=== PATIENT | female | born 1995 | race Two or more races ===

== ENCOUNTER → 2021-08-10 14:18 | Outpatient (BNVA) | payer OTHER, SELFPAY | PROVIDERS: PCP Internal Medicine; Referring Provider Internal Medicine; Visit Provider Internal Medicine | DX: I49.8 Other specified cardiac arrhythmias (principal) | CPT/HCPCS: 93005 ==

== ENCOUNTER → 2021-09-16 12:56 | Outpatient (REF) | payer OTHER, SELFPAY ==
--- NOTE | 2021-09-16 13:02 | CA_ITS ---
Transthoracic Echocardiogram Patient (Last, First, Middle): Deanne Reid L Gender: Female Date of : 1995 Age: 26 Procedure Date: 09/16/2021 Procedure Type: Transthoracic Echocardiogram Location: OP Height: 152.4 cm Weight: 55.79 kg BSA: 1.52 m2 Heart Rate: bpm BP: 80 / 70 mmHg Drop Shipment Clerk: [email or web address]/[email or web address] Referring MD: Cristopher Allen MD Symptoms: I49.8 - Other specified cardiac arrhythmias Study Quality: Good ECG Rhythm: Sinus Conclusions: - The left ventricular systolic function is normal. The visually estimated ejection fraction is between 60-65%. - No obvious valvular pathology seen on this study. Findings Left Ventricle Normal left ventricular cavity size. There is normal left ventricular wall thickness. The left ventricular systolic function is normal. The visually estimated ejection fraction is between 60-65%. There is no evidence of regional wall motion abnormalities. Diastolic function is normal for age. Right Ventricle Normal right ventricular cavity size and systolic function. Atria Both atria are normal in size. Aortic Valve There is a normal trileaflet aortic valve. There is no aortic valve stenosis. There is no aortic valve regurgitation. Mitral Valve The mitral valve appears normal. There is trace mitral valve regurgitation. There is no mitral valve stenosis. Pulmonic Valve The pulmonic valve was not well visualized. Tricuspid Valve Normal tricuspid valve structure. There is trace tricuspid valve regurgitation. The pulmonary artery systolic pressure is normal. Great Vessels The aortic annulus, sinuses of valsalva, and asc aorta are normal in size. Venous The inferior vena cava is normal in size and collapses greater than 50% with inspiration. Pericardium/Pleural There is no evidence of pericardial effusion. Prior Study Comparison No prior study available for comparison. Recommendations, Care & Conclusions No obvious valvular pathology seen on this study. Measurements 2D Linear Measurements IVSd: 0.87 0.6-0.9/0.6-1.0 cm LVIDd: 4.18 3.9-5.3/4.2-5.9 cm LVIDd Index: 2.75 2.4-3.2/2.2-3.1 cm/m2 LVIDs: 2.62 2.0-3.6 cm LVPWd: 0.75 0.7-1.1 cm Ao Root: 3.10 2.1-3.5 cm LA Diam: 2.70 2.7-3.8/3.0-4.0 cm LAIDs Index: 1.78 1.5-2.3 cm/m2 LV Mass: 127.28 67-162/88-224 g LV Mass Index: 83.73 43-95/49-115 g/m2 LVOT Diam: 2.00 3.0+(-)1.3 cm Mitral Valve MV Pk E: 0.97 MV PK A: 0.49 MV Decel Time: 212.00 E/A: 2.00 E'Lateral: 14.40 E'Medial: 10.70 E/E' Med: 9.00 E/E' Lat: 6.70 PHT: 62.00 MVA PHT: 3.55 Decel Coffee: 4.56 Aortic Valve AoV Pk Adria: 1.33 AoV Mn Adria: 1.00 AoV VTI: 0.27 AoV Pk Grad: 7.00 Aov Mn Grad: 4.00 MATTHEW Cont.VTI: 2.56 LVOT LVOT Pk Adria: 1.13 LVOT Mn Adria: 0.79 LVOT VTI: 0.22 LVOT Pk Grad: 5.00 LVOT Mn Grad: 3.00 LVOT Diam: 2.00 LVOT Area: 3.14 Diastolic Function MV Pk E: 0.97 MV Pk A: 0.49 E/A: 2.00 E'Medial: 10.70 E/E' Med: 9.00 E' Laterial: 14.40 E/E' Lat: 6.70 Tricuspid Valve TR Pk Adria: 1.24 TR Pk Grad: 6.00 RA Press: 3.00 Great Vessels Aorta Ao Root-2D: 3.10 2.0-3.7 cm Ao Asc: 2.40 2.1-3.4 cm Ao Arch: 2.20 Updated in Other Vendor System with Status of Final Cristopher Allen MD electronically signed on 09/17/2021 12:37:58 PM with status of Final
== END ==
LOC: HO.CARD 12:56
PROVIDERS: PCP Internal Medicine; Visit Provider Internal Medicine
DX: I49.8 Other specified cardiac arrhythmias (principal)
CPT/HCPCS: 93306

== ENCOUNTER → 2021-10-19 15:12 | Outpatient (BNVA) | payer OTHER, SELFPAY | PROVIDERS: PCP Internal Medicine; Referring Provider Internal Medicine; Visit Provider Internal Medicine ==

== ENCOUNTER 2022-01-15 09:20 | Emergency (ER) | payer OTHER, SELFPAY ==
--- NOTE | ~2022-01-15 | CT_ITS ---
EXAMINATION: CT abdomen pelvis wo con CLINICAL INFORMATION: Reason for Exam abd pain and vomiting COMPARISON: No prior CT available for comparison. TECHNIQUE: Multidetector volumetric imaging was performed from the superior aspect of the liver through the pubic symphysis a noncontrasted study. Sagittal and coronal reformatted images were obtained on the technologist's workstation. This CT examination was performed using dose optimization techniques as appropriate, variously including the following: *Automated exposure control *Adjustment of mA and/or kV according to patient size (this includes techniques or standardized protocols for targeted exams where dose is matched to indication/reason for exam; i.e. extremities or head) *Use of iterative reconstruction technique DLP: 396 mGy-cm FINDINGS: LOWER THORAX: Included lung bases are clear. HEPATOBILIARY: No focal hepatic lesions. No biliary ductal dilatation. GALLBLADDER: Gallbladder unremarkable. SPLEEN: Spleen is normal in size. PANCREAS: No focal mass or ductal dilatation. STOMACH AND GASTROINTESTINAL TRACT: Stomach is grossly unremarkable. There is no bowel distention or thickening. Appendix not visualized might have been obscured by crowding of bowel loops and paucity of intraperitoneal fat, no CT evidence of inflamed structure around the cecum to suggest appendicitis. ADRENALS: No adrenal nodules. KIDNEYS/URETERS: No hydronephrosis, stones or solid mass lesions. URINARY BLADDER: Partially decompressed. PELVIC VISCERA: There is IUD in uterus otherwise Unremarkable PERITONEUM: No free air or fluid. LYMPH NODES: No lymphadenopathy. VASCULAR:Abdominal aorta normal in size, no aneurysm found. BONES, ABDOMINAL WALL AND SOFT TISSUES: Age-appropriate changes of the spine and skeletal system, no destructive osteolytic or osteosclerotic bone lesion found CT/CT abdomen pelvis wo con IMPRESSION: *No CT evidence of acute intra-abdominal or pelvic process to explain patient's pain symptoms, exam is limited by lack of oral and IV contrast and paucity of intraperitoneal fat. *No bowel obstruction, no kidney stone or hydronephrosis, no free air or fluid, no evidence of appendicitis. *IUD in the uterus.
[2022-01-15 09:35] VITALS: BP 106/77; PULSE 110; RESP 16; TEMP 36.9; O2SAT 100; BMI 25.0
--- NOTE | 2022-01-15 10:01 | ED.NAVMDI ---
HPI - Nausea/Vomiting/Diarrhea General Chief complaint: Nausea/Vomiting/Diarrhea Stated complaint: Vomiting Time Seen by Provider: 01/15/22 09:58 Source: patient and family Mode of arrival: ambulatory Limitations: no limitations History of Present Illness HPI Narrative: 26 years old female came in for evaluation of nausea, vomiting, and diarrhea. Patient's symptoms started since this morning, patient ate homemade fish with her father father did feel mildly sick but the patient started to feel more sicker having nausea and vomiting and 2 times of nonbloody loose stool diarrhea at home, no fever or chills. No recent travel, no recent use of antibiotic. been having abdominal cramps. No abdominal surgeries. Past medical history is significant for endometriosis. Related Data Home Medications Medication Instructions Recorded Confirmed fremanezumab-vfrm 225 mg/1.5 mL mg SUBCUT .once a month ml 10/19/21 10/19/21 subcutaneous syringe (Ajovy Syringe) ubrogepant 100 mg tablet (Ubrelvy) 100 mg PO ONCE PRN tab 10/19/21 10/19/21 Previous Rx's Medication Instructions Recorded ivabradine 5 mg tablet (Corlanor) 5 mg PO BID #60 tab 08/23/21 mirtazapine 15 mg tablet 15 mg PO BEDTIME #30 tab 11/23/21 somtgpujia-ckrvkuwcfipyf-dcrrhuft 1 tab PO Q4H PRN 30 Days #20 tab 11/29/21 50 mg-325 mg-40 mg tablet metoclopramide HCl 10 mg tablet 10 mg PO Q6H PRN #7 tab 01/15/22 (Reglan) Allergies Allergy/AdvReac Type Severity Reaction Status Date / Time Sulfa (Sulfonamide Allergy Unknown UNKNOWN Verified 10/19/21 15:15 Antibiotics) [SULFA (SULFONAMIDE ANTIBIOTICS)] Review of Systems Review of Systems: All other systems are reviewed and are negative Constitutional: Reports as per HPI and Reports no additional constitutional complaints Eyes: Reports as per HPI and Reports no additional eye complaints Reports system reviewed and no additional complaints, except as documented Cardiovascular: Reports as per HPI and Reports no additional cardiovascular complaints Respiratory: Reports as per HPI and Reports no additional respiratory complaints Gastrointestinal: Reports as per HPI and Reports no additional gastrointestinal complaints Genitourinary: Reports no additional female genitourinary complaints Musculoskeletal: Reports no additional musculoskeletal complaints Skin/Breast: Reports system reviewed and no additional complaints, except as docu Psychiatric: Reports no additional psychiatric complaints Endocrine: Reports no additional endocrine complaints Hematologic/Lymphatic: Reports no additional hematologic/lymphatic complaints Allergic/Immunologic: Reports no additional allergic/immunologic complaints Reports system reviewed and no additional complaints, except as documented and Reports Abnormal speech present [facility] Past Medical History Medical History Migraine POTS (postural orthostatic tachycardia syndrome) Surgical History History of wisdom tooth extraction Family History Family History Father Unknown family medical history Mother HTN (hypertension) Social History Social History Alcohol intake: never Patient Tobacco Use Status: Never used Tobacco Advance Directives: No Advance Directives Information Provided: Yes Physical Exam Vital Signs: Vital Signs: Last Vital Signs Temp 98.6 F 01/15/22 13:39 Pulse 76 01/15/22 13:39 Resp 18 01/15/22 13:39 BP 94/60 01/15/22 13:39 Pulse Ox 97 01/15/22 13:39 BMI result Body Mass Index 25.0 Vital signs have been reviewed as appeared to be correct. Blood pressure normal. Heart rate elevated.. Respiration rate normal. Temperature normal. Oxygen saturation normal. Appearance: Alert. Oriented X3. No acute distress. Head: Normal external exam. Normocephalic. Atraumatic. No [place] signs noted. No raccoon eyes noted Eyes: PERRLA. EOMI. Conjunctiva and sclera normal. Eyelids normal. ENT: TM's Normal. Pharynx normal. Uvula midline. Moist mucous membranes. No trismus noted. No drooling noted. No muffled voice noted. Neck: Normal inspection. Neck supple. FROM. No adenopathy. Thyroid Normal. No meningeal signs. No neck mass noted. CVS: Normal heart rate and rhythm. Heart sound normal. No murmurs noted. Pulses normal throughout. Respiratory: No respiratory distress. Painless inspiration. Breath sounds normal. No wheezes/rales/rhonchi noted. Chest nontender. No accessory muscle usage noted or decreased air movement noted. Abdomen: Soft and nontender. Bowel sounds normal in all 4 quadrants. No distention noted. No organomegaly noted. No visible injury noted. Back: No CVA tenderness. Full range of motion noted. Skin: Skin warm and dry. Normal skin color. Normal skin turgor. No rashes/lesions/lacerations noted. Extremities: No lower extremity edema. Extremities exhibit normal range of motion. Extremities nontender. Neuro: Oriented X 3. Cranial nerve exam: II-XII are grossly intact No motor deficit. No sensory deficit. Reflexes normal. Course Course Course Narrative: Assessment and plan. 26-year-old female came in with nausea, vomiting, diarrhea after eating fish, father had similar symptoms but milder, patient received IV fluid and IV medication in the emergency department, patient now is improving able to tolerate p.o. intake. Will discharge home with antinausea medication, instruction to drink fluids and clear diet and gradually advance as tolerated. MDM - Nausea/Vomiting/Diarrhea Lab Data Attestation: I reviewed the patient's lab results. Result diagrams: 01/15/22 10:20 01/15/22 10:20 Labs: Lab Results 01/15/22 01/15/22 01/15/22 Range/Units 10:09 10:09 10:20 WBC 4.1 L (4.8-10.8) X10*3/uL RBC 4.46 (4.20-5.50) X10*6/uL Hgb 13.0 (12.0-16.0) g/dl Hct 39.9 (37.0-47.0) % MCV 89.5 (80.0-98.0) fL MCH 29.1 (27.0-33.0) pg MCHC 32.6 (31.0-35.0) g/dl RDW 12.0 (11.0-16.0) % Plt Count 204 (160-400) X10*3/uL MPV 10.8 (9.4-12.3) fL Immature Gran % (Auto) 0.5 H (0.0-0.4) % Neut % (Auto) 75.1 H (45-73) % Lymph % (Auto) 14.3 L (20-40) % [place] % (Auto) 9.9 (2-11) % Eos % (Auto) 0.0 (0-4) % Baso % (Auto) 0.2 (0-2) % Lymph # (Auto) 0.6 L (1.2-4.9) X10*3/uL [place] # (Auto) 0.4 (0.1-1.2) X10*3/uL Eos # (Auto) 0.0 (0.0-0.4) X10*3/uL Baso # (Auto) 0.0 (0.0-0.2) X10*3/uL Abs Immat Gran (auto) 0.02 (0.00-0.03) X10*3/uL Absolute Neuts (auto) 3.1 (2.0-8.3) x10*3/uL Absolute Nucleated RBC 0.000 (0.0-0.012) X10*3/uL Nucleated RBC % (auto) 0.0 (0.0-0.2) /100WBC Sodium (135-145) mmol/L Potassium (3.3-5.1) mmol/L Chloride (96-108) mmol/L Carbon Dioxide (22-29) mmol/L Anion Gap (12-20) BUN (9-16) mg/dL Creatinine (0.5-1.4) mg/dL Estim Creat Clear Calc Estimated GFR Random Glucose (60-115) mg/dL Calcium (8.4-10.2) mg/dL Total Bilirubin (0.0-1.0) mg/dL Direct Bilirubin (0.0-0.5) mg/dL AST (5-31) U/L ALT (0-31) U/L Alkaline Phosphatase (39-117) U/L Total Protein (6.5-8.0) g/dL Albumin (3.5-5.0) g/dL Lipase (8-78) U/L Urine Color YELLOW Urine Appearance CLOUDY Urine pH 6.0 (5.0-8.0) Ur Specific [place] >= 1.030 H (1.005-1.025) Urine Protein 1+ H (NEG-TRACE) MG/DL Urine Glucose (UA) NEG (NEG) MG/DL Urine Ketones 5 (NEG) MG/DL Urine Blood 1+ H (NEG) Urine Nitrite NEG (NEG) Ur Leukocyte Esterase NEG (NEG) Urine RBC 5-9 H (0) /HPF Urine WBC 5-9 H (0-4) /HPF Ur Squamous Epith Cells 3+ /LPF Amorphous Sediment 3+ /LPF Urine Bacteria 1+ /LPF Urine Mucus 2+ /LPF Urine Test NEGATIVE (NEGATIVE) 01/15/22 Range/Units 10:20 WBC (4.8-10.8) X10*3/uL RBC (4.20-5.50) X10*6/uL Hgb (12.0-16.0) g/dl Hct (37.0-47.0) % MCV (80.0-98.0) fL MCH (27.0-33.0) pg MCHC (31.0-35.0) g/dl RDW (11.0-16.0) % Plt Count (160-400) X10*3/uL MPV (9.4-12.3) fL Immature Gran % (Auto) (0.0-0.4) % Neut % (Auto) (45-73) % Lymph % (Auto) (20-40) % [place] % (Auto) (2-11) % Eos % (Auto) (0-4) % Baso % (Auto) (0-2) % Lymph # (Auto) (1.2-4.9) X10*3/uL [place] # (Auto) (0.1-1.2) X10*3/uL Eos # (Auto) (0.0-0.4) X10*3/uL Baso # (Auto) (0.0-0.2) X10*3/uL Abs Immat Gran (auto) (0.00-0.03) X10*3/uL Absolute Neuts (auto) (2.0-8.3) x10*3/uL Absolute Nucleated RBC (0.0-0.012) X10*3/uL Nucleated RBC % (auto) (0.0-0.2) /100WBC Sodium 138 (135-145) mmol/L Potassium 4.4 (3.3-5.1) mmol/L Chloride 104 (96-108) mmol/L Carbon Dioxide 27 (22-29) mmol/L Anion Gap 11 L (12-20) BUN 22 H (9-16) mg/dL Creatinine 0.91 (0.5-1.4) mg/dL Estim Creat Clear Calc 73.4 Estimated GFR > 60 Random Glucose 99 (60-115) mg/dL Calcium 9.6 (8.4-10.2) mg/dL Total Bilirubin 0.3 (0.0-1.0) mg/dL Direct Bilirubin 0.2 (0.0-0.5) mg/dL AST 31 (5-31) U/L ALT 22 (0-31) U/L Alkaline Phosphatase 49 (39-117) U/L Total Protein 7.5 (6.5-8.0) g/dL Albumin 4.2 (3.5-5.0) g/dL Lipase 8 (8-78) U/L Urine Color Urine Appearance Urine pH (5.0-8.0) Ur Specific [place] (1.005-1.025) Urine Protein (NEG-TRACE) MG/DL Urine Glucose (UA) (NEG) MG/DL Urine Ketones (NEG) MG/DL Urine Blood (NEG) Urine Nitrite (NEG) Ur Leukocyte Esterase (NEG) Urine RBC (0) /HPF Urine WBC (0-4) /HPF Ur Squamous Epith Cells /LPF Amorphous Sediment /LPF Urine Bacteria /LPF Urine Mucus /LPF Urine Test (NEGATIVE) Imaging Data CT abdomen and pelvis: Attestation: I personally reviewed and interpreted this imaging study as follows: Radiologist's impression: *No CT evidence of acute intra-abdominal or pelvic process to explain patient's pain symptoms, exam is limited by lack of oral and IV contrast and paucity of intraperitoneal fat. ? *No bowel obstruction, no kidney stone or hydronephrosis, no free air or fluid, no evidence of appendicitis. ? *IUD in the uterus. Discharge Plan Discharge Clinical Impression: Gastroenteritis Patient Disposition: Home, Self-Care Instructions: Gastroenteritis (ED) Prescriptions: New metoclopramide HCl [Reglan] 10 mg tablet 10 mg PO Q6H PRN (Reason: nausea and vomiting) Qty: 7 0RF No Action Corlanor 5 mg tablet 5 mg PO BID Qty: 60 5RF Rx Instructions: must administer with a meal/food mirtazapine 15 mg tablet 15 mg PO BEDTIME Qty: 30 6RF fcwpvpmphq-efpdsrzzhazfx-mabe 50-325-40 mg tablet 1 tab PO Q4H PRN (Reason: pain) 30 Days Qty: 20 3RF Ajovy Syringe 225 mg/1.5 mL syringe subcut .once a month 0RF Ubrelvy 100 mg tablet 100 mg PO ONCE [id number] Referrals: Xavier Linder MD [Primary Care Provider] - 2 days
[2022-01-15 10:05] VITALS: BP 100/70; PULSE 95; RESP 18; TEMP 37.1; O2SAT 98
[2022-01-15 10:22] LABS: Appearance Urine CLOUDY; Color Urine YELLOW; Glucose Urine UA NEG (NEG); Leukocyte Esterase Urine NEG (NEG); Nitrite Urine NEG (NEG); Specific Gravity - Urine >= 1.030 (1.005-1.025); UACC Culture Trigger NO; Urine Blood 1+ (NEG); Urine Ketones 5 MG/DL (NEG); Urine Protein 1+ MG/DL (NEG-TRACE)
[2022-01-15 10:23] LABS: UPreg QC Valid YES; Urine Pregnancy NEGATIVE (NEGATIVE)
[2022-01-15 10:24] LABS: MANUAL DIFF FLAG NO
[2022-01-15] MEDS: Magnesium Hydrox/Alum Hydrox 30 ML ORAL.SUSP PO (10:25)
[2022-01-15] MEDS: 0.9 % Sodium Chloride 1,000 ML 999 ML IV (10:25)
[2022-01-15] MEDS: ondansetron HCL 4 MG/2 ML VIAL IVPUSH ×2 (10:26→11:25)
[2022-01-15] MEDS: Famotidine/PF 20 MG/2 ML VIAL IVPUSH (10:26)
[2022-01-15 10:28] LABS: Basophils Percent Auto 0.2 % (0-2); Hematocrit 39.9 % (37.0-47.0); Imm Gran Abs Auto 0.02 X10*3/uL (0.00-0.03); Imm Gran Pct Auto 0.5 % (0.0-0.4); Lymphocytes Absolute Auto 0.6 X10*3/uL (1.2-4.9); Lymphocytes Percent Auto 14.3 % (20-40); Mean Corpuscular HGB Conc 32.6 g/dl (31.0-35.0); Mean Corpuscular Hemoglobin 29.1 pg (27.0-33.0); Mean Corpuscular Volume 89.5 fL (80.0-98.0); Mean Platelet Volume 10.8 fL (9.4-12.3); Monocytes Absolute Auto 0.4 X10*3/uL (0.1-1.2); Monocytes Percent Auto 9.9 % (2-11); Neutrophils Absolute Auto 3.1 x10*3/uL (2.0-8.3); Neutrophils Percent Auto 75.1 % (45-73); Platelet Count 204 X10*3/uL (160-400); Red Blood Count 4.46 X10*6/uL (4.20-5.50); White Blood Count 4.1 X10*3/uL (4.8-10.8)
[2022-01-15 10:37] LABS: Amorphous Sediment Urine 3+ /LPF; Bacteria Urine 1+ /LPF; Mucus Urine 2+ /LPF; Squamous Epithelial Cell Urine 3+ /LPF; UACC CULT YES
[2022-01-15 10:46] LABS: Alanine Aminotransferase 22 U/L (0-31); Albumin Level 4.2 g/dL (3.5-5.0); Alkaline Phosphatase 49 U/L (39-117); Anion Gap 11 (12-20); Aspartate Amino Transferase 31 U/L (5-31); Bilirubin Direct 0.2 mg/dL (0.0-0.5); Bilirubin Total 0.3 mg/dL (0.0-1.0); Blood Urea Nitrogen 22 mg/dL (9-16); Calcium 9.6 mg/dL (8.4-10.2); Carbon Dioxide 27 mmol/L (22-29); Chloride 104 mmol/L (96-108); Creatinine Clr Calc Pharmacy 73.4; Estimated Glomerular Filt Rate > 60; Glucose Random 99 mg/dL (60-115); Lipase 8 U/L (8-78); Potassium 4.4 mmol/L (3.3-5.1); Sodium 138 mmol/L (135-145); Total Protein 7.5 g/dL (6.5-8.0)
[2022-01-15] MEDS: Ketorolac Tromethamine 30 MG/ML VIAL IVPUSH (11:25)
[2022-01-15 12:45] VITALS: BP 93/58; PULSE 68; RESP 16; TEMP 36.8; O2SAT 98
[2022-01-15] MEDS: Metoclopramide HCl 10 MG/2 ML VIAL IVPUSH (13:23)
[2022-01-15 13:39] VITALS: BP 94/60; PULSE 76; RESP 18; TEMP 37; O2SAT 97
== END 2022-01-15 15:03 | disposition home or self-care (01) ==
PROVIDERS: Emergency Provider Emergency Medicine; PCP Internal Medicine
DX: K52.9 Noninfective gastroenteritis and colitis, unspecified (principal)
CPT/HCPCS: 36415; 74176; 80048; 80076; 81001; 81025; 83690; 85025; 87086; 87088; 87186; 96361; 96374; 96375; 96376; 99284; J1885; J2405; J2765

== ENCOUNTER 2022-01-17 02:37 | Observation (INO) | payer OTHER, SELFPAY ==
[2022-01-17] VITALS (14 sets, daily range): BP systolic 91–108; BP diastolic 56–69; PULSE 70–140; RESP 14–28; TEMP 36.6–37.2; O2SAT 97–100; BMI 25.0
--- NOTE | ~2022-01-17 | US_ITS ---
EXAMINATION: US ABDOMEN COMPLETE CLINICAL INFORMATION: Nausea, vomiting, diarrhea and upper abdominal pain. COMPARISON: None. TECHNIQUE: Real-time imaging of the abdominal viscera. FINDINGS: PANCREAS: Normal. ABDOMINAL AORTA: The proximal, mid, and distal segments are normal in caliber. INFERIOR VENA CAVA: Visualized portions are normal. LIVER: Normal. The liver is normal in size. The liver contour is normal. Parenchymal echogenicity is normal. No focal hepatic lesion. There is no intrahepatic biliary duct dilatation seen. GALLBLADDER: There is linear debris seen within the dependent portion of gallbladder. COMMON BILE DUCT: Normal in caliber measuring 0.24 cm in diameter. RIGHT KIDNEY: Normal. No hydronephrosis. No renal calculi or focal parenchymal lesions. The kidney measures 11.7 cm in maximum dimension. LEFT KIDNEY: Normal. No hydronephrosis. No renal calculi or focal parenchymal lesions. The kidney measures 10.0 cm in maximum dimension. SPLEEN: Normal. The spleen measures 8.8 cm in maximum dimension. FREE FLUID: None. US/US abdomen complete IMPRESSION: There is linear debris seen in the dependent portion of gallbladder. The rest of the abdominal ultrasound is unremarkable.
[2022-01-17 03:17] LABS: MANUAL DIFF FLAG NO
[2022-01-17 03:18] LABS: Basophils Percent Auto 0.3 % (0-2); Eosinophils Percent Auto 0.5 % (0-4); Hematocrit 38.1 % (37.0-47.0); Imm Gran Abs Auto 0.01 X10*3/uL (0.00-0.03); Imm Gran Pct Auto 0.2 % (0.0-0.4); Lymphocytes Absolute Auto 0.4 X10*3/uL (1.2-4.9); Lymphocytes Percent Auto 6.5 % (20-40); Mean Corpuscular HGB Conc 34.1 g/dl (31.0-35.0); Mean Corpuscular Hemoglobin 29.7 pg (27.0-33.0); Mean Platelet Volume 10.6 fL (9.4-12.3); Monocytes Absolute Auto 0.2 X10*3/uL (0.1-1.2); Monocytes Percent Auto 3.1 % (2-11); Neutrophils Absolute Auto 5.8 x10*3/uL (2.0-8.3); Neutrophils Percent Auto 89.4 % (45-73); Platelet Count 199 X10*3/uL (160-400); Red Blood Count 4.38 X10*6/uL (4.20-5.50); Red Cell Distribution Width 11.6 % (11.0-16.0); White Blood Count 6.5 X10*3/uL (4.8-10.8)
[2022-01-17 03:35] LABS: COVID-19 Test Negative (Negative)
[2022-01-17 03:36] LABS: Alanine Aminotransferase 53 U/L (0-31); Alkaline Phosphatase 53 U/L (39-117); Anion Gap 14 (12-20); Aspartate Amino Transferase 66 U/L (5-31); Bilirubin Total 0.4 mg/dL (0.0-1.0); Blood Urea Nitrogen 12 mg/dL (9-16); Calcium 9.1 mg/dL (8.4-10.2); Carbon Dioxide 18 mmol/L (22-29); Chloride 107 mmol/L (96-108); Estimated Glomerular Filt Rate > 60; Glucose Random 106 mg/dL (60-115); Lipase 22 U/L (8-78); Potassium 3.3 mmol/L (3.3-5.1); Sodium 136 mmol/L (135-145); Total Protein 7.1 g/dL (6.5-8.0)
--- NOTE | 2022-01-17 08:47 | ED_ITS ---
HPI - Nausea/Vomiting/Diarrhea General Chief complaint: Nausea/Vomiting/Diarrhea Stated complaint: vomiting; abd pain Time Seen by Provider: 01/17/22 07:12 Source: patient and family Mode of arrival: ambulatory Limitations: no limitations History of Present Illness HPI Narrative: 26-year-old female with a past medical history of migraine headaches and postural orthostatic tachycardic syndrome (POTS) presenting to the ED with complaints of nausea/vomiting with associated upper abdominal pain and watery diarrhea since after she ate [place] Fish Cod dish her mother prepared. She reports her father ate the same duration he is having similar symptoms although his symptoms are more improved. She reports she is vaccinated to COVID. She reports on or Monday she had a fever of 100.0. She reports that she has had generalized fatigue/malaise along with body aches and numbness in her arms. She denies any dizziness, headache, neck pain/stiffness, trouble swallowing or breathing, sore throat, cough, chest pain or shortness of breath, dizziness nausea, orthopnea, radiation of the abdominal pain, rashes, recent falls or trauma, back pain, hematuria, abnormal vaginal discharge, black or bloo dy stools, black or bloody emesis, recent antibiotic usage, recent hospitalization recent surgery or alcohol usage, she denies being on any blood thinners, she denies any other complaints concerns at this time. MD elicited complaint: nausea, vomiting, diarrhea and abdominal pain Onset (ago): day(s) (3) Description of vomiting: food contents, watery and bilious Description of diarrhea: watery Associated nausea: Yes Associated abdominal pain: Yes Location of pain: epigastric Radiation: does not radiate Pain consistency: constant Severity: moderate Quality: cramping and aching Exacerbating factors: none Relieving factors: none Context: possible food poisoning (Patient reports her mother made some [place] and since then she has not been feeling well and her father has had similar symptoms although he is doing better than the patient) Associated symptoms: myalgias, fever/chills, loss of appetite, malaise, nausea/vomiting, fatigue and numbness Related Data Home Medications Medication Instructions Recorded Confirmed fremanezumab-vfrm 225 mg/1.5 mL mg SUBCUT .once a month ml 10/19/21 10/19/21 subcutaneous syringe (Learn with HomerovSynchronized Syringe) ubrogepant 100 mg tablet (Ubrelvy) 100 mg PO ONCE PRN tab 10/19/21 10/19/21 cetirizine 10 mg tablet 1 tab PO DAILY PRN 01/17/22 01/17/22 fluticasone 55 mcg-salmeterol 14 2 puff INHALATION BID 01/17/22 mcg/actuation breath activated powder fluticasone propionate 50 2 spray INTRANASAL DAILY 01/17/22 mcg/actuation nasal spray,suspension ketotifen fumarate 0.025 % (0.035 1 drp OPHTHALMIC (EYE) BID 01/17/22 %) eye drops (Alaway) Previous Rx's Medication Instructions Recorded ivabradine 5 mg tablet (Corlanor) 5 mg PO BID #60 tab 08/23/21 mirtazapine 15 mg tablet 15 mg PO BEDTIME #30 tab 11/23/21 usfrmqurdh-ktfjnkpspnryt-kzgufdlc 1 tab PO Q4H PRN 30 Days #20 tab 11/29/21 50 mg-325 mg-40 mg tablet metoclopramide HCl 10 mg tablet 10 mg PO Q6H PRN #7 tab 01/15/22 (Reglan) Allergies Allergy/AdvReac Type Severity Reaction Status Date / Time Sulfa (Sulfonamide Allergy Unknown UNKNOWN Verified 10/19/21 15:15 Antibiotics) [SULFA (SULFONAMIDE ANTIBIOTICS)] epinephrine Allergy Unknown Verified 01/17/22 03:37 mushroom Allergy Unknown Verified 01/17/22 03:37 Review of Systems Review of Systems: Constitutional : + Fever, + Chills, No Night Sweats, + Fatigue, + Malaise Cardiovascular : No Chest Pain, No SOB Respiratory : No Cough, No Sputum, No Wheezing, No Dyspnea Gastrointestinal : + Nausea, + Vomiting, + Diarrhea, + abdominal Pain, No Hematochezia, No Melena Genitourinary : No irregular bleeding, No Dysuria, No Urinary Frequency, No Hematuria,No Urinary Incontinence, No Urgency, No Flank Pain Musculoskeletal : No joint pain, No Myalgias, No Joint Swelling Skin : No Skin Lesions, No rash Neuro : No Weakness, + Numbness, No Paresthesias, No Loss of Consciousness, No Dizziness, No Headache Heme/Lymph: No Lymphadenopathy Endocrine : No Temperature Intolerance Yes all other systems are reviewed and are negative Gastrointestinal: Gastrointestinal: Reports nausea PMFSH Past Medical History Attestation statement: The following information was validated with the patient. Medical History Migraine POTS (postural orthostatic tachycardia syndrome) Surgical History History of wisdom tooth extraction Family History Family History Father Unknown family medical history Mother HTN (hypertension) Social History Social History Alcohol intake: never Patient Tobacco Use Status: Never used Tobacco Advance Directives: No Patient : No Physical Exam Vital Signs: Vital Signs: Last Vital Signs Temp 98.0 F 01/17/22 09:24 Pulse 87 01/17/22 13:13 Resp 16 01/17/22 13:13 BP 108/69 01/17/22 13:13 Pulse Ox 99 01/17/22 13:13 BMI result Body Mass Index 25.0 vital signs have been reviewed as normal and appeared to be correct. Blood pressure normal. Heart rate normal. Respiration rate normal. Temperature normal. Oxygen saturation normal. Appearance: Alert. Oriented X3. No acute distress. Head: Normal external exam. Normocephalic. Eyes: PERRLA. EOMI. Conjunctiva and sclera normal. Eyelids normal. ENT: Pharynx normal. Uvula midline. Moist mucous membranes. No trismus noted. No drooling noted. No muffled voice noted. Neck: Normal inspection. Neck supple. FROM. No adenopathy. No meningeal signs. CVS: Normal heart rate and rhythm. Heart sound normal. No murmurs noted. Pulses normal throughout. Respiratory: No respiratory distress. Painless inspiration. Breath sounds normal. No wheezes/rales/rhonchi noted. Chest nontender. No accessory muscle usage noted or decreased air movement noted. Abdomen: Soft and mild tenderness palpation to the upper abdomen/epigastric area. Nondistended. No guarding. No rigidity. Bowel sounds normal in all 4 quadrants. No distention noted. No organomegaly noted. No visible injury noted. No rebound tenderness. Negative Rovsing sign. Negative obturator's sign. Negative psoas sign. Negative Gastelum sign. Back: No CVA tenderness. Full range of motion noted. Skin: Skin warm and dry. Normal skin color. Normal skin turgor. No rashes/ lesions/lacerations noted. Extremities: Extremities exhibit normal range of motion. Extremities nontender. Neuro: Oriented X 3. No motor deficit. No sensory deficit. Reflexes normal. Normal steady gait. CN's II-XII intact bilaterally? Course Course Course Narrative: 8:55am - 26-year-old female with a past medical history of migraine headaches and postural orthostatic tachycardic syndrome (POTS) presenting to the ED with complaints of nausea/vomiting with associated upper abdominal pain and watery diarrhea since after she ate [place] Fish Cod dish her mother prepared. She reports her father ate the same duration he is having similar symptoms although his symptoms are more improved. She reports she is vaccinated to COVID. She reports on or Monday she had a fever of 100.0. She reports that she has had generalized fatigue/malaise along with body aches and numbness in her arms. Plan: Labs were obtained while the patient was in the waiting room and carbon dioxide 18. AST/ALT 66/53 otherwise all other labs are within normal limits. Patient is negative for COVID. Therefore will await a UA. She had a negative 2 days ago. Will obtain an ultrasound of her abdomen. Provide a L of IV fluids with 4 mg of Zofran and 30 mg of IV Toradol. I reviewed the patient's chart and it appears that her urine culture grew back E coli I have therefore she has UTI therefore I will start her on Rocephin will evaluate. Reevaluation(s) Reevaluation #1: - labs reviewed carbon dioxide 18. AST/ALT 66/53. Otherwise all other labs are within normal limits. UA positive for nitrates. Patient negative for COVID. - abdominal ultrasound revealed debris in the gallbladder otherwise no other acute processes noted - patient reports her abdominal pain is improved after the Toradol although she still reports nausea and vomiting and due to her having a UTI I am unable to send her home because she cannot tolerate p.o. therefore she will be admitted for intractable nausea/vomiting with abdominal pain and UTI. Patient understands and is agreeable to this. Time: 12:20 MDM - Nausea/Vomiting/Diarrhea Medical Records Attestation: I reviewed the patient's medical records. Lab Data Attestation: I reviewed the patient's lab results. Result diagrams: 01/17/22 03:12 01/17/22 03:12 Labs: Lab Results 01/17/22 01/17/22 01/17/22 Range/Units 03:12 03:12 03:12 WBC 6.5 (4.8-10.8) X10*3/uL RBC 4.38 (4.20-5.50) X10*6/uL Hgb 13.0 (12.0-16.0) g/dl Hct 38.1 (37.0-47.0) % MCV 87.0 (80.0-98.0) fL MCH 29.7 (27.0-33.0) pg MCHC 34.1 (31.0-35.0) g/dl RDW 11.6 (11.0-16.0) % Plt Count 199 (160-400) X10*3/uL MPV 10.6 (9.4-12.3) fL Immature Gran % (Auto) 0.2 (0.0-0.4) % Neut % (Auto) 89.4 H (45-73) % Lymph % (Auto) 6.5 L (20-40) % [place] % (Auto) 3.1 (2-11) % Eos % (Auto) 0.5 (0-4) % Baso % (Auto) 0.3 (0-2) % Lymph # (Auto) 0.4 L (1.2-4.9) X10*3/uL [place] # (Auto) 0.2 (0.1-1.2) X10*3/uL Eos # (Auto) 0.0 (0.0-0.4) X10*3/uL Baso # (Auto) 0.0 (0.0-0.2) X10*3/uL Abs Immat Gran (auto) 0.01 (0.00-0.03) X10*3/uL Absolute Neuts (auto) 5.8 (2.0-8.3) x10*3/uL Absolute Nucleated RBC 0.000 (0.0-0.012) X10*3/uL Nucleated RBC % (auto) 0.0 (0.0-0.2) /100WBC Sodium 136 (135-145) mmol/L Potassium 3.3 D (3.3-5.1) mmol/L Chloride 107 (96-108) mmol/L Carbon Dioxide 18 L (22-29) mmol/L Anion Gap 14 (12-20) BUN 12 (9-16) mg/dL Creatinine 0.84 (0.5-1.4) mg/dL Estim Creat Clear Calc TNP Estimated GFR > 60 Random Glucose 106 (60-115) mg/dL Lactic Acid (0.5-2.0) mmol/L Calcium 9.1 (8.4-10.2) mg/dL Total Bilirubin 0.4 (0.0-1.0) mg/dL AST 66 H (5-31) U/L ALT 53 H (0-31) U/L Alkaline Phosphatase 53 (39-117) U/L Total Protein 7.1 (6.5-8.0) g/dL Albumin 4.0 (3.5-5.0) g/dL Lipase 22 (8-78) U/L Urine Color Urine Appearance Urine pH (5.0-8.0) Ur Specific [place] (1.005-1.025) Urine Protein (NEG-TRACE) MG/DL Urine Glucose (UA) (NEG) MG/DL Urine Ketones (NEG) MG/DL Urine Blood (NEG) Urine Nitrite (NEG) Ur Leukocyte Esterase (NEG) Urine RBC (0) /HPF Urine WBC (0-4) /HPF Ur Squamous Epith Cells /LPF Urine Bacteria /LPF Urine Test (NEGATIVE) COVID-19 (LUIS ALFREDO) Negative (Negative) COVID-19 Clin Com See Note 01/17/22 01/17/22 01/17/22 Range/Units 09:19 10:50 10:50 WBC (4.8-10.8) X10*3/uL RBC (4.20-5.50) X10*6/uL Hgb (12.0-16.0) g/dl Hct (37.0-47.0) % MCV (80.0-98.0) fL MCH (27.0-33.0) pg MCHC (31.0-35.0) g/dl RDW (11.0-16.0) % Plt Count (160-400) X10*3/uL MPV (9.4-12.3) fL Immature Gran % (Auto) (0.0-0.4) % Neut % (Auto) (45-73) % Lymph % (Auto) (20-40) % [place] % (Auto) (2-11) % Eos % (Auto) (0-4) % Baso % (Auto) (0-2) % Lymph # (Auto) (1.2-4.9) X10*3/uL [place] # (Auto) (0.1-1.2) X10*3/uL Eos # (Auto) (0.0-0.4) X10*3/uL Baso # (Auto) (0.0-0.2) X10*3/uL Abs Immat Gran (auto) (0.00-0.03) X10*3/uL Absolute Neuts (auto) (2.0-8.3) x10*3/uL Absolute Nucleated RBC (0.0-0.012) X10*3/uL Nucleated RBC % (auto) (0.0-0.2) /100WBC Sodium (135-145) mmol/L Potassium (3.3-5.1) mmol/L Chloride (96-108) mmol/L Carbon Dioxide (22-29) mmol/L Anion Gap (12-20) BUN (9-16) mg/dL Creatinine (0.5-1.4) mg/dL Estim Creat Clear Calc Estimated GFR Random Glucose (60-115) mg/dL Lactic Acid 0.7 (0.5-2.0) mmol/L Calcium (8.4-10.2) mg/dL Total Bilirubin (0.0-1.0) mg/dL AST (5-31) U/L ALT (0-31) U/L Alkaline Phosphatase (39-117) U/L Total Protein (6.5-8.0) g/dL Albumin (3.5-5.0) g/dL Lipase (8-78) U/L Urine Color YELLOW Urine Appearance CLEAR Urine pH 6.0 (5.0-8.0) Ur Specific [place] 1.010 (1.005-1.025) Urine Protein NEG (NEG-TRACE) MG/DL Urine Glucose (UA) NEG (NEG) MG/DL Urine Ketones >=80 (NEG) MG/DL Urine Blood TRACE (NEG) Urine Nitrite POS H (NEG) Ur Leukocyte Esterase NEG (NEG) Urine RBC 0-2 (0) /HPF Urine WBC 1-4 (0-4) /HPF Ur Squamous Epith Cells 1+ /LPF Urine Bacteria 1+ /LPF Urine Test NEGATIVE (NEGATIVE) COVID-19 (LUIS ALFREDO) (Negative) COVID-19 Clin Com Imaging Data Abdominal ultrasound: Attestation: I personally reviewed and interpreted this imaging study as follows: Radiologist's impression: FINDINGS: PANCREAS: Normal. ABDOMINAL AORTA: The proximal, mid, and distal segments are normal in caliber. INFERIOR VENA CAVA: Visualized portions are normal. LIVER: Normal. The liver is normal in size. The liver contour is normal. Parenchymal echogenicity is normal. No focal hepatic lesion. There is no intrahepatic biliary duct dilatation seen. GALLBLADDER: There is linear debris seen within the dependent portion of gallbladder. COMMON BILE DUCT: Normal in caliber measuring 0.24 cm in diameter. RIGHT KIDNEY: Normal. No hydronephrosis. No renal calculi or focal parenchymal lesions. The kidney measures 11.7 cm in maximum dimension. LEFT KIDNEY: Normal. No hydronephrosis. No renal calculi or focal parenchymal lesions. The kidney measures 10.0 cm in maximum dimension. SPLEEN: Normal. The spleen measures 8.8 cm in maximum dimension. FREE FLUID: None. US/US abdomen complete IMPRESSION: There is linear debris seen in the dependent portion of gallbladder. The rest of the abdominal ultrasound is unremarkable. Critical Care Time Critical Care Time Critical Care Time: Yes Total Critical Care Time: 60 Attestation: I personally attest to this time spent taking care of the patient Discharge Plan Discharge Clinical Impression: UTI (urinary tract infection), Nausea & vomiting, Acute upper abdominal pain, Diarrhea, Intractable vomiting Patient Disposition: Admitted As Inpatient
[2022-01-17] MEDS: 0.9 % Sodium Chloride 1,000 ML 999 ML IVCONT ×2 (08:54→11:16)
[2022-01-17] MEDS: Ketorolac Tromethamine 30 MG/ML VIAL IVPUSH (08:54)
[2022-01-17] MEDS: ondansetron HCL 4 MG/2 ML VIAL IVPUSH ×3 (08:54→21:21)
[2022-01-17 09:40] LABS: Lactic Acid 0.7 mmol/L (0.5-2.0)
[2022-01-17] MEDS: cefTRIAXone sodium 2 GM in 0.9 % Sodium Chloride 50 ML IV (10:10)
[2022-01-17] MEDS: Metoclopramide HCl 10 MG/2 ML VIAL IVPUSH (10:30)
[2022-01-17 11:05] LABS: Appearance Urine CLEAR; Color Urine YELLOW; Glucose Urine UA NEG (NEG); Leukocyte Esterase Urine NEG (NEG); Nitrite Urine POS (NEG); UACC Culture Trigger YES; Urine Blood TRACE (NEG); Urine Ketones >=80 MG/DL (NEG); Urine Protein NEG (NEG-TRACE)
[2022-01-17 11:52] LABS: RBC Urine 0-2 /HPF (0)
[2022-01-17 11:53] LABS: Bacteria Urine 1+ /LPF; Squamous Epithelial Cell Urine 1+ /LPF
[2022-01-17 12:34] LABS: UPreg QC Valid YES; Urine Pregnancy NEGATIVE (NEGATIVE)
[2022-01-17] MEDS: diphenhydrAMINE HCL 50 MG/ML VIAL 25 MG IVPUSH (12:43)
--- NOTE | 2022-01-17 14:03 | P.HPHOSP_ITS ---
History of Present Illness Date of Service: 01/17/22 Chief Complaint: Intractable vomiting Review of Systems Review of Systems: Denies chest pain Denies shortness of breath Admits to intractable vomiting over last 24-48 hours Admits to mild abdominal pain associated with vomiting PMFSH Medical History Migraine POTS (postural orthostatic tachycardia syndrome) Family History Father Unknown family medical history Mother HTN (hypertension) Surgical History History of wisdom tooth extraction Social History Alcohol intake: never Patient Tobacco Use Status: Never used Tobacco Advance Directives: No Patient : No Narrative: 26-year-old female with a past medical history of migraine headaches and postural orthostatic tachycardic syndrome (POTS) presenting to the ED with complaints of nausea/vomiting with associated upper abdominal pain and watery diarrhea since after she ate [place] Fish Cod dish her mother p repared.? She reports her father ate the same duration he is having similar symptoms although his symptoms are more improved.? She reports she is vaccinated to COVID.? She reports on or Monday she had a fever of 100.0.? She reports that she has had generalized fatigue/malaise along with body aches and numbness in her arms.? She denies any dizziness, headache, neck pain/stiffness, trouble swallowing or breathing, sore throat, cough, chest pain or shortness of breath, dizziness nausea, orthopnea, radiation of the abdominal pain, rashes, recent falls or trauma, back pain, hematuria, abnormal vaginal discharge, black or bloody stools, black or bloody emesis, recent antibiotic usage, recent hospitalization recent surgery or alcohol usage, she denies being on any blood thinners, she denies any other complaints concerns at this time. ER course Given and to the use of IV fluid, Reglan, Zofran and Benadryl with mild improvement of symptoms. Admission requested Meds Allergies Allergy/AdvReac Type Severity Reaction Status Date / Time Sulfa (Sulfonamide Allergy Unknown UNKNOWN Verified 10/19/21 15:15 Antibiotics) [SULFA (SULFONAMIDE ANTIBIOTICS)] epinephrine Allergy Unknown Verified 01/17/22 03:37 mushroom Allergy Unknown Verified 01/17/22 03:37 Active Medications: Current Medications Acetaminophen (Acetaminophen 325 Mg Tablet) 650 mg PO Q6H PRN PRN Reason: Pain, Mild (Pain Scale 1-3) Diphenhydramine HCl (Diphenhydramine Hcl 50 Mg/Ml Vial) 25 mg IVPUSH RQ6H PRN PRN Reason: Nausea and Vomiting Dextrose/Sodium Chloride (D51/2ns) 1,000 mls @ 100 mls/hr IVCONT .Q10H DANO Ondansetron HCl (Ondansetron Hcl 4 Mg/2 Ml Vial) 4 mg IVPUSH RQ4H PRN PRN Reason: Nausea and Vomiting Pharmacy Consult (Consult Rx Perform Med Rec) 1 each MISCELLANE ONCE PRN PRN Reason: Consult order Sodium Chloride (0.9 % Sodium Chloride Flush 3 Ml Syringe) 3 ml IVFLUSH QSHIFT DANO Home Medications Medication Instructions Recorded Confirmed Last Taken Type fremanezumab-vfrm 225 mg/1.5 mL mg SUBCUT .once a month ml 10/19/21 10/19/21 Unknown History subcutaneous syringe (Ajovy Syringe) ubrogepant 100 mg tablet (Ubrelvy) 100 mg PO ONCE PRN tab 10/19/21 10/19/21 Unknown History cetirizine 10 mg tablet 1 tab PO DAILY PRN 01/17/22 01/17/22 Unknown History fluticasone 55 mcg-salmeterol 14 2 puff INHALATION BID 01/17/22 Unknown History mcg/actuation breath activated powder fluticasone propionate 50 2 spray INTRANASAL DAILY 01/17/22 Unknown History mcg/actuation nasal spray,suspension ketotifen fumarate 0.025 % (0.035 1 drp OPHTHALMIC (EYE) BID 01/17/22 Unknown History %) eye drops ([place]away) Physical Exam Vital Signs and Narrative: Vital Signs: Last Vital Signs Temp 98.0 F 01/17/22 09:24 Pulse 87 01/17/22 13:13 Resp 16 01/17/22 13:13 BP 108/69 01/17/22 13:13 Pulse Ox 99 01/17/22 13:13 BMI result Body Mass Index 25.0 Const: Other: Ill-appearing no acute distress Resp: Other: Clear to auscultation bilaterally. No rales rhonchi or wheezes Cardio: Other: No S4; positive S1-S2; no S3 murmurs rubs or gallops GI: Other: Soft nontender nondistended with normoactive bowel sounds x4 quadrants. There is no rebound or guarding Extrem: Other: No edema Results Labs CBC and Chem 7: 01/17/22 03:12 01/17/22 03:12 Labs: Laboratory Results - last 24 hr 01/17/22 01/17/22 01/17/22 03:12 03:12 03:12 MCV 87.0 MCH 29.7 MCHC 34.1 RDW 11.6 Plt Count 199 MPV 10.6 Immature Gran % (Auto) 0.2 Neut % (Auto) 89.4 H Lymph % (Auto) 6.5 L [place] % (Auto) 3.1 Eos % (Auto) 0.5 Baso % (Auto) 0.3 Lymph # (Auto) 0.4 L [place] # (Auto) 0.2 Eos # (Auto) 0.0 Baso # (Auto) 0.0 Abs Immat Gran (auto) 0.01 Absolute Neuts (auto) 5.8 Absolute Nucleated RBC 0.000 Nucleated RBC % (auto) 0.0 Anion Gap 14 Estim Creat Clear Calc TNP Estimated GFR > 60 Random Glucose 106 Lactic Acid Calcium 9.1 Total Bilirubin 0.4 AST 66 H ALT 53 H Alkaline Phosphatase 53 Total Protein 7.1 Albumin 4.0 Lipase 22 Urine Color Urine Appearance Urine pH Ur Specific [place] Urine Protein Urine Glucose (UA) Urine Ketones Urine Blood Urine Nitrite Ur Leukocyte Esterase Urine RBC Urine WBC Ur Squamous Epith Cells Urine Bacteria Urine Test COVID-19 (LUIS ALFREDO) Negative COVID-19 Clin Com See Note 01/17/22 01/17/22 01/17/22 09:19 10:50 10:50 MCV MCH MCHC RDW Plt Count MPV Immature Gran % (Auto) Neut % (Auto) Lymph % (Auto) [place] % (Auto) Eos % (Auto) Baso % (Auto) Lymph # (Auto) [place] # (Auto) Eos # (Auto) Baso # (Auto) Abs Immat Gran (auto) Absolute Neuts (auto) Absolute Nucleated RBC Nucleated RBC % (auto) Anion Gap Estim Creat Clear Calc Estimated GFR Random Glucose Lactic Acid 0.7 Calcium Total Bilirubin AST ALT Alkaline Phosphatase Total Protein Albumin Lipase Urine Color YELLOW Urine Appearance CLEAR Urine pH 6.0 Ur Specific [place] 1.010 Urine Protein NEG Urine Glucose (UA) NEG Urine Ketones >=80 Urine Blood TRACE Urine Nitrite POS H Ur Leukocyte Esterase NEG Urine RBC 0-2 Urine WBC 1-4 Ur Squamous Epith Cells 1+ Urine Bacteria 1+ Urine Test NEGATIVE COVID-19 (LUIS ALFREDO) COVID-19 Clin Com Imaging Radiologist's Impressions: Impressions Abdomen Ultrasound 01/17/22 09:06 IMPRESSION: There is linear debris seen in the dependent portion of gallbladder. The rest of the abdominal ultrasound is unremarkable. Assessment and Plan (1) UTI (urinary tract infection): Status: Acute (2) Intractable vomiting: Status: Acute (3) POTS (postural orthostatic tachycardia syndrome): Status: Acute Plan 26-year-old female presents with intractable vomiting for last 24-48 hours after eating a fish dinner prepared by her mother. She states her father had similar symptoms but these have passed. She also demonstrated UTI upon admission to ER. She responded to fluids he will be admitted observation 1. Intractable vomiting -continue IV fluids overnight -continue reglan/Zofran/benadryl -advance diet as tolerated 2. UTI -culture sent; given 1 dose of ceftriaxone in the ER -follow-up culture prior to DC 3. Migraine -continue outpatient therapies Quality Stroke Does the patient have a stroke diagnosis?: No VTE Prior VTE?: No VTE Risk Level:: Medical - moderate - high VTE Device Contraindication: Treatment Not Indicated VTE Drug Contraindication: Treatment Not Indicated
[2022-01-17] MEDS: Dextrose 5 % and 0.45 % NaCl 1,000 ML 100 ML IVCONT (14:08)
--- NOTE | 2022-01-17 14:17 | PHA.MEDREC ---
Pharmacy Consult ? Medication Reconciliation Pharmacy has completed the medication reconciliation. Vickie HooverD
--- NOTE | 2022-01-17 15:47 | PC.NURSE ---
REPORT GIVEN TO [facility]
[2022-01-17] MEDS: 0.9 % Sodium Chloride Flush 3 ML SYRINGE IVFLUSH ×2 (16:32→21:22)
[2022-01-17 19:16] LABS: Leukocytes Stool Qualitative NEGATIVE (NEGATIVE)
[2022-01-17] MEDS: Acetaminophen 325 MG TABLET 650 MG PO (21:21)
[2022-01-18] MEDS: Dextrose 5 % and 0.45 % NaCl 1,000 ML 100 ML IVCONT (02:26)
[2022-01-18] MEDS: ondansetron HCL 4 MG/2 ML VIAL IVPUSH ×2 (02:32→09:26)
[2022-01-18 03:57] VITALS: BP 101/58; PULSE 50; RESP 18; TEMP 36.5; O2SAT 98
[2022-01-18 04:41] LABS: MANUAL DIFF FLAG NO
[2022-01-18 04:46] LABS: Basophils Percent Auto 0.4 % (0-2); Eosinophils Absolute Auto 0.2 X10*3/uL (0.0-0.4); Hematocrit 34.2 % (37.0-47.0); Hemoglobin 11.3 g/dl (12.0-16.0); Imm Gran Abs Auto 0.01 X10*3/uL (0.00-0.03); Imm Gran Pct Auto 0.2 % (0.0-0.4); Lymphocytes Absolute Auto 1.6 X10*3/uL (1.2-4.9); Lymphocytes Percent Auto 33.7 % (20-40); Mean Corpuscular Hemoglobin 29.6 pg (27.0-33.0); Mean Corpuscular Volume 89.5 fL (80.0-98.0); Mean Platelet Volume 11.4 fL (9.4-12.3); Monocytes Absolute Auto 0.7 X10*3/uL (0.1-1.2); Monocytes Percent Auto 14.9 % (2-11); Neutrophils Absolute Auto 2.2 x10*3/uL (2.0-8.3); Neutrophils Percent Auto 46.8 % (45-73); Platelet Count 194 X10*3/uL (160-400); Red Blood Count 3.82 X10*6/uL (4.20-5.50); Red Cell Distribution Width 11.9 % (11.0-16.0); White Blood Count 4.8 X10*3/uL (4.8-10.8)
[2022-01-18 05:11] LABS: Alanine Aminotransferase 106 U/L (0-31); Albumin Level 3.4 g/dL (3.5-5.0); Alkaline Phosphatase 48 U/L (39-117); Anion Gap 12 (12-20); Aspartate Amino Transferase 94 U/L (5-31); Bilirubin Total 0.3 mg/dL (0.0-1.0); Blood Urea Nitrogen 7 mg/dL (9-16); Calcium 8.3 mg/dL (8.4-10.2); Carbon Dioxide 24 mmol/L (22-29); Chloride 109 mmol/L (96-108); Creatinine Clr Calc Pharmacy 86.8; Estimated Glomerular Filt Rate > 60; Glucose Fasting 94 mg/dL (60-99); Potassium 3.8 mmol/L (3.3-5.1); Sodium 141 mmol/L (135-145)
[2022-01-18 07:42] VITALS: BP 98/71; PULSE 83; RESP 18; TEMP 36.1; O2SAT 99
[2022-01-18 08:00] VITALS: BP 98/71; PULSE 83; RESP 18; TEMP 36.1; O2SAT 99
--- NOTE | 2022-01-18 09:52 | P.DS_ITS ---
DS: Providers Provider Date of Service: 01/18/22 Date of admission: 01/17/22 13:55 Date of discharge: 01/18/22 Primary care physician: Hawa Linder MD DS: Diagnosis Discharge Diagnosis (1) UTI (urinary tract infection): Status: Acute (2) Intractable vomiting: Status: Acute (3) POTS (postural orthostatic tachycardia syndrome): Status: Acute DS: Summary Hospital Course Hospital Course: 26-year-old female with a past medical history of migraine headaches and postural orthostatic tachycardic syndrome (POTS) presenting to the ED with complaints of nausea/vomiting with associated upper abdominal pain and watery diarrhea since after she ate [place] Fish Cod dish her mother prepared.? She reports her father ate the same duration he is having similar symptoms although his symptoms are more improved.? She reports she is vaccinated to COVID.? She reports on or Monday she had a fever of 100.0.? She reports that she has had generalized fatigue/malaise along with body aches and numbness in her arms.? She denies any dizziness, headache, neck pain/stiffness, trouble swallowing or breathing, sore throat, cough, chest pain or shortness of breath, dizziness nausea, orthopnea, radiation of the abdominal pain, rashes, recent falls or trauma, back pain, hematuria, abnormal vaginal discharge, black or bloody stools, black or bloody emesis, recent antibiotic usage, recent hospitalization recent surgery or alcohol usage, she denies being on any blood thinners, she denies any other complaints concerns at this time. Hospital course Admitted overnight with IV fluids and Zofran. When examined this a.m. tolerating missed wishing to be discharged. Home to resume outpatient regimen along with a course of Ceftin for UTI and Zofran for nausea. Follow-up with PCP as scheduled Time Spent with Patient Time attestation: Total time spent providing and/or coordinating discharge services: Discharge coordination time: Greater than 30 minutes Quality: Stroke Does the patient have a stroke diagnosis?: No Physical Exam Vital Signs: Vital Signs: Last Vital Signs Temp 97.0 F 01/18/22 08:00 Pulse 83 01/18/22 08:00 Resp 18 01/18/22 08:00 BP 98/71 01/18/22 08:00 Pulse Ox 99 01/18/22 08:00 BMI result Body Mass Index 25.0 Const: Other: Ill-appearing no acute distress Resp: Other: Clear to auscultation bilaterally. No rales rhonchi or wheezes Cardio: Other: No S4; positive S1-S2; no S3 murmurs rubs or gallops GI: Other: Soft nontender nondistended with normoactive bowel sounds x4 quadrants. There is no rebound or guarding Extrem: Other: No edema DS: Data Data Completed and Pending Labs on day of discharge: Laboratory Results - last 24 hr 01/17/22 01/17/22 01/17/22 10:50 10:50 Unknown WBC RBC Hgb Hct MCV MCH MCHC RDW Plt Count MPV Immature Gran % (Auto) Neut % (Auto) Lymph % (Auto) [place] % (Auto) Eos % (Auto) Baso % (Auto) Lymph # (Auto) [place] # (Auto) Eos # (Auto) Baso # (Auto) Abs Immat Gran (auto) Absolute Neuts (auto) Absolute Nucleated RBC Nucleated RBC % (auto) Sodium Potassium Chloride Carbon Dioxide Anion Gap BUN Creatinine Estim Creat Clear Calc Estimated GFR Fasting Glucose Calcium Total Bilirubin AST ALT Alkaline Phosphatase Total Protein Albumin Urine Color YELLOW Urine Appearance CLEAR Urine pH 6.0 Ur Specific [place] 1.010 Urine Protein NEG Urine Glucose (UA) NEG Urine Ketones >=80 Urine Blood TRACE Urine Nitrite POS H Ur Leukocyte Esterase NEG Urine RBC 0-2 Urine WBC 1-4 Ur Squamous Epith Cells 1+ Urine Bacteria 1+ Urine Test NEGATIVE Stool Leukocytes, Qual NEGATIVE 01/18/22 01/18/22 04:04 04:04 WBC 4.8 RBC 3.82 L Hgb 11.3 L Hct 34.2 L MCV 89.5 MCH 29.6 MCHC 33.0 RDW 11.9 Plt Count 194 MPV 11.4 Immature Gran % (Auto) 0.2 Neut % (Auto) 46.8 Lymph % (Auto) 33.7 [place] % (Auto) 14.9 H Eos % (Auto) 4.0 Baso % (Auto) 0.4 Lymph # (Auto) 1.6 [place] # (Auto) 0.7 Eos # (Auto) 0.2 Baso # (Auto) 0.0 Abs Immat Gran (auto) 0.01 Absolute Neuts (auto) 2.2 Absolute Nucleated RBC 0.000 Nucleated RBC % (auto) 0.0 Sodium 141 Potassium 3.8 Chloride 109 H Carbon Dioxide 24 Anion Gap 12 BUN 7 L Creatinine 0.77 Estim Creat Clear Calc 86.8 Estimated GFR > 60 Fasting Glucose 94 Calcium 8.3 L D Total Bilirubin 0.3 AST 94 H ALT 106 H Alkaline Phosphatase 48 Total Protein 6.0 L Albumin 3.4 L Urine Color Urine Appearance Urine pH Ur Specific [place] Urine Protein Urine Glucose (UA) Urine Ketones Urine Blood Urine Nitrite Ur Leukocyte Esterase Urine RBC Urine WBC Ur Squamous Epith Cells Urine Bacteria Urine Test Stool Leukocytes, Qual Preliminary micro results at discharge 01/17/22 Unknown Stool Culture - Preliminary Stool Normal so far. Discharge Plan Discharge Patient Disposition: Home, Self-Care Discharge Diagnosis: UTI Referrals: Hawa Linder MD [Primary Care Provider] - 1 Week Discharge Medications: New cefuroxime axetil 500 mg tablet 500 mg PO BID 7 Days Qty: 14 0RF ondansetron HCl 8 mg tablet 8 mg PO Q8H PRN (Reason: nausea and vomiting) 5 Days Qty: 15 0RF Continued fluticasone propionate 50 mcg/actuation spray,suspension 2 spray intranasal DAILY 0RF fluticasone propion-salmeterol 55-14 mcg/actuation aerosol powdr breath activated 2 puff inhalation BID 0RF ocutjgkbon-qxaxiholozapb-buqz 50-325-40 mg tablet 1 tab PO Q6H PRN (Reason: Headache) 0RF mirtazapine 15 mg tablet 7.5 mg PO BEDTIME 0RF vitamin B complex Capsule 1 cap PO DAILY 0RF ProAir RespiClick 90 mcg/actuation aerosol powdr breath activated 2 puff inhalation Q6H PRN (Reason: Shortness Of Breath) 0RF Ajovy Syringe 225 mg/1.5 mL syringe 225 mg subcut .once a month 0RF Discharge Orders: Discharge Order (Routine); Ordered 01/18/22 Ordered By: Gordy Eubanks Diet: advance to usual diet Activity on Discharge: As tolerated Stand Alone Forms: Patient Portal Discharge page Care Plan Goals: Complete course of Ceftin for UTI. Zofran for p.r.n. nausea Health Concerns: Resume all outpatient therapies Plan of Treatment: Ceftin for UTI Zofran for nausea Assessment: As per discharge summary
[2022-01-18 12:00] VITALS: PULSE 83; RESP 18; TEMP 36.3
--- NOTE | 2022-01-18 12:28 | MHC.CM.PN ---
met with pt who is indepdent dc plan home no muralii
== END 2022-01-18 13:27 | disposition home or self-care (01) ==
LOC: HO.ED 12:23 → HO.EDOVER 14:02 → HO.S3 15:25
PROVIDERS: Physician Assistant Medical; Admitting Provider Hospitalist; Emergency Provider Emergency Medicine; PCP Internal Medicine; Visit Provider Hospitalist
DX: N39.0 Urinary tract infection, site not specified (principal); R11.2 Nausea with vomiting, unspecified; R10.10 Upper abdominal pain, unspecified; R19.7 Diarrhea, unspecified; R50.9 Fever, unspecified; R53.83 Other fatigue; R20.0 Anesthesia of skin; G43.909 Migraine, unspecified, not intractable, without status migrainosus; I49.8 Other specified cardiac arrhythmias; Z20.822 Contact with and (suspected) exposure to COVID-19; Z82.49 Family history of ischemic heart disease and other diseases of the circulatory system; Z88.2 Allergy status to sulfonamides; Z88.8 Allergy status to other drugs, medicaments and biological substances; Z91.018 Allergy to other foods
CPT/HCPCS: 36415; 76700; 80053; 81001; 81003; 81025; 83605; 83690; 85025; 87040; 87045; 87046; 87086; 87635; 89055; 96361; 96374; 96375; 96376; 99218; 99285; 99291; J0696; J1200; J1885; J2405; J2765

== ENCOUNTER → 2022-02-03 14:58 | Outpatient (BNVA) | payer OTHER, SELFPAY | PROVIDERS: PCP Internal Medicine; Visit Provider Nurse Practitioner Family ==

== ENCOUNTER → 2022-04-12 15:03 | Outpatient (BNVA) | payer OTHER, SELFPAY | PROVIDERS: PCP Internal Medicine; Referring Provider Physician Assistant; Visit Provider Internal Medicine | DX: Z13.89 Encounter for screening for other disorder (principal) ==

== ENCOUNTER 2022-05-09 09:48 | Outpatient (REF) | payer OTHER, SELFPAY ==
[2022-05-09 10:20] LABS: MANUAL DIFF FLAG NO
[2022-05-09 10:25] LABS: Basophils Percent Auto 0.2 % (0-2); Eosinophils Absolute Auto 0.1 X10*3/uL (0.0-0.4); Eosinophils Percent Auto 1.4 % (0-4); Hematocrit 36.9 % (37.0-47.0); Imm Gran Abs Auto 0.03 X10*3/uL (0.00-0.03); Imm Gran Pct Auto 0.3 % (0.0-0.4); Lymphocytes Absolute Auto 1.5 X10*3/uL (1.2-4.9); Lymphocytes Percent Auto 16.5 % (20-40); Mean Corpuscular HGB Conc 32.5 g/dl (31.0-35.0); Mean Corpuscular Hemoglobin 29.4 pg (27.0-33.0); Mean Corpuscular Volume 90.4 fL (80.0-98.0); Mean Platelet Volume 10.6 fL (9.4-12.3); Monocytes Absolute Auto 0.6 X10*3/uL (0.1-1.2); Monocytes Percent Auto 6.4 % (2-11); Neutrophils Absolute Auto 6.8 x10*3/uL (2.0-8.3); Neutrophils Percent Auto 75.2 % (45-73); Platelet Count 225 X10*3/uL (160-400); Red Blood Count 4.08 X10*6/uL (4.20-5.50); Red Cell Distribution Width 12.8 % (11.0-16.0); White Blood Count 9.1 X10*3/uL (4.8-10.8)
[2022-05-09 10:53] LABS: Alanine Aminotransferase 11 U/L (0-31); Alkaline Phosphatase 51 U/L (39-117); Anion Gap 11 (12-20); Aspartate Amino Transferase 15 U/L (5-31); Bilirubin Total 0.6 mg/dL (0.0-1.0); Blood Urea Nitrogen 14 mg/dL (9-16); C Reactive Protein 0.19 mg/dL (< or = 0.50); Calcium 8.8 mg/dL (8.4-10.2); Carbon Dioxide 26 mmol/L (22-29); Chloride 106 mmol/L (96-108); Estimated Glomerular Filt Rate > 60; Glucose Random 85 mg/dL (60-115); Rheumatoid Factor < 15.0 IU/mL (<15.0); Sodium 139 mmol/L (135-145); Total Protein 7.1 g/dL (6.5-8.0)
[2022-05-09 11:04] LABS: Ferritin 36 ng/mL (10-122); TSH reflex Free T4 1.89 uIU/mL (0.32-4.0); Vitamin D 25-OH Total 7.8 ng/mL (>30)
[2022-05-09 11:08] LABS: Appearance Urine CLEAR; Color Urine YELLOW; Glucose Urine UA NEG (NEG); Leukocyte Esterase Urine NEG (NEG); Nitrite Urine NEG (NEG); Specific Gravity - Urine 1.025 (1.005-1.025); Urine Blood NEG (NEG); Urine Ketones NEG (NEG); Urine Protein NEG (NEG-TRACE)
[2022-05-09 11:24] LABS: Folate 2.9 ng/mL (> or = 4.0); Vitamin B12 199 pg/mL (200-900)
[2022-05-09 11:25] LABS: Erythrocyte Sedimentation Rate 10 MM/HR (0-20)
[2022-05-10 13:32] LABS: H Pylori Breath Test Negative (Negative)
[2022-05-11 02:27] LABS: Immunoglobulin G 1367 mg/dL (600-1640)
[2022-05-11 14:22] LABS: Anti Nuclear Antibody Screen NEGATIVE (NEGATIVE)
[2022-05-12 13:26] LABS: Zinc 63 mcg/dL (60-130)
[2022-05-12 14:11] LABS: Cyclic Citrullinated Peptide <16 UNITS
[2022-05-12 15:11] LABS: Aldolase 4.1 U/L (<=8.1); Angiotensin Converting Enzyme 15 U/L (9-67)
[2022-05-12 16:02] LABS: Vitamin C 0.9 mg/dL (0.3-2.7)
[2022-05-12 20:16] LABS: Nicotinamide <20 ng/mL; Vit B3 - Nicotinic Acid <20 ng/mL
[2022-05-13 15:33] LABS: Metanephrine, Free 38 pg/mL (<=57); Normetanephrines, Free 52 pg/mL (<=148); Total Metanephrine, Free 90 pg/mL (<=205); Vitamin A 20 mcg/dL (38-98)
[2022-05-13 15:34] LABS: Vitamin B5 (Pantothenic Acid) <40 ng/mL (<275)
[2022-05-13 19:23] LABS: Histamine Plasma 3.1 ng/mL (< OR = 1.8)
[2022-05-14 10:01] LABS: Transglutaminase Ab IgG <1.0 U/mL; Transglutaminase IgA <1.0 U/mL
[2022-05-14 21:13] LABS: Alpha-Tocopherol 14.6 mg/L (5.7-19.9); Beta-Gamma Tocopherol 1.7 mg/L (<=4.3)
[2022-05-15 13:27] LABS: Vitamin B6 6.2 ng/mL (2.1-21.7)
[2022-05-16 10:32] LABS: Vitamin K1 311 pg/mL (130-1500)
== END 2022-05-09 09:49 | disposition home or self-care (01) ==
LOC: HO.LAB 09:48
PROVIDERS: Visit Provider Internal Medicine Gastroenterology
DX: G43.109 Migraine with aura, not intractable, without status migrainosus (principal); I49.8 Other specified cardiac arrhythmias; R11.2 Nausea with vomiting, unspecified; R19.7 Diarrhea, unspecified; K52.839 Microscopic colitis, unspecified; G89.29 Other chronic pain; R10.33 Periumbilical pain; K75.81 Nonalcoholic steatohepatitis (NASH); R30.0 Dysuria; R79.82 Elevated C-reactive protein (CRP)
CPT/HCPCS: 36415; 80053; 81003; 82085; 82164; 82180; 82306; 82550; 82607; 82728; 82746; 82784; 83013; 83088; 83520; 83835; 84207; 84443; 84446; 84590; 84591; 84597; 84630; 85025; 85652; 86003; 86038; 86039; 86140; 86200; 86364; 86431

== ENCOUNTER → 2022-05-19 14:54 | Outpatient (REF) | payer OTHER, MEDICAID, SELFPAY ==
--- NOTE | 2022-05-19 14:57 | CA_ITS ---
Transthoracic Echocardiogram Patient (Last, First, Middle): Deanne Reid L Gender: Female Date of : 1995 Age: 27 Procedure Date: 05/19/2022 Procedure Type: Transthoracic Echocardiogram Location: OP Height: 152.4 cm Weight: 58.97 kg BSA: 1.55 m2 Heart Rate: bpm BP: 98 / 68 mmHg Hris Manager: DIIDER Referring MD: Cristopher Allen MD Spectroscopist: Emanuel Andrea MD Symptoms: R06.02 - Shortness of breath Study Quality: Adequate ECG Rhythm: Sinus Conclusions: - Normal study Findings Left Ventricle Normal left ventricular size, thickness, and systolic function. The visually estimated ejection fraction is between 60-65%. Spectral Doppler is indicative of a normal filling pattern. Right Ventricle Normal right ventricular cavity size and systolic function. Atria Both atria are normal in size. Interatrial shunt cannot be excluded. Aortic Valve Normal aortic valve structure and function. There is no aortic valve stenosis. There is no aortic valve regurgitation. Mitral Valve Normal mitral valve structure and function. There is trace mitral valve regurgitation. There is no mitral valve stenosis. Pulmonic Valve The pulmonic valve is likely normal. Tricuspid Valve Normal tricuspid valve structure. Tricuspid regurgitation envelope is inadequate for calculation of right ventricular systolic pressure. Normal right atrial pressure. Great Vessels All visible segments of the aorta are normal in size. The visualized portions of the pulmonary artery and branches are normal. Venous The inferior vena cava is normal in size and collapses greater than 50% with inspiration. Pericardium/Pleural There is no evidence of pericardial effusion. Prior Study Comparison No significant change compared to prior study dated: 09/16/2022. Measurements 2D Linear Measurements IVSd: 0.82 0.6-0.9/0.6-1.0 cm LVIDd: 4.38 3.9-5.3/4.2-5.9 cm LVIDd Index: 2.83 2.4-3.2/2.2-3.1 cm/m2 LVIDs: 2.97 2.0-3.6 cm LVPWd: 0.85 0.7-1.1 cm LA Diam: 2.60 2.7-3.8/3.0-4.0 cm LAIDs Index: 1.68 1.5-2.3 cm/m2 LV Mass: 142.23 67-162/88-224 g LV Mass Index: 91.76 43-95/49-115 g/m2 LVOT Diam: 2.00 3.0+(-)1.3 cm 2D Systolic Function EF 4C: 60.70 >55% EF 2C: 64.70 >55% EF BiP: 62.50 >55% Mitral Valve MV Pk E: 1.07 MV PK A: 0.77 MV Decel Time: 224.00 E/A: 1.40 E'Lateral: 11.70 E'Medial: 10.70 E/E' Med: 10.00 E/E' Lat: 9.10 PHT: 66.00 MVA PHT: 3.33 Decel [place]: 4.75 Aortic Valve AoV Pk Adria: 1.53 AoV Mn Adria: 1.10 AoV VTI: 0.31 AoV Pk Grad: 9.00 Aov Mn Grad: 6.00 MATTHEW Cont.VTI: 2.21 LVOT LVOT Pk Adria: 0.99 LVOT Mn Adria: 0.69 LVOT VTI: 0.22 LVOT Pk Grad: 4.00 LVOT Mn Grad: 2.00 LVOT Diam: 2.00 LVOT Area: 3.14 Diastolic Function MV Pk E: 1.07 MV Pk A: 0.77 E/A: 1.40 E'Medial: 10.70 E/E' Med: 10.00 E' Laterial: 11.70 E/E' Lat: 9.10 Right Ventricle TAPSE (mm): 22.70 TVS' Adria: 11.20 Tricuspid Valve RA Press: 3.00 Great Vessels Aorta Sinus of Valsalva: 3.11 2.0-3.[address] [place]: 2.27 1.7-3.4 cm Ao Asc: 2.50 2.1-3.4 cm Ao Arch: 2.50 Updated in Other Vendor System with Status of Final Emanuel Andrea MD electronically signed on 05/20/2022 8:49:01 AM with status of Final
== END ==
LOC: HO.CARD 14:54
PROVIDERS: Visit Provider Internal Medicine
DX: I49.8 Other specified cardiac arrhythmias (principal); R06.02 Shortness of breath
CPT/HCPCS: 93306

== ENCOUNTER → 2022-06-30 09:30 | Outpatient (BNVA) | payer OTHER, SELFPAY | PROVIDERS: PCP Physician Assistant; Visit Provider Internal Medicine | DX: I49.8 Other specified cardiac arrhythmias (principal) | CPT/HCPCS: 93005 ==

== ENCOUNTER 2022-09-01 12:21 | Day surgery (SDC) | payer OTHER, SELFPAY ==
--- NOTE | 2022-08-31 13:19 | HO.ANESPROP2 ---
Documented by User: Daniela Morales NP 08/31/22 13:22 HPI - Anesthesia Eval Consult details Narrative: 27yo F for Upper Endoscopy PMFSH Active Problems Active Problems: All Active Problems (Updated 07/05/22 @ 18:57 by Evan Acevedo MD) Malnutrition (Acute) Nasal sinus congestion (Acute) Nausea vomiting and diarrhea (Acute) Migraine with aura (Acute) Gastroenteritis (Acute) UTI (urinary tract infection) (Acute) POTS (postural orthostatic tachycardia syndrome) (Acute) Past Medical History Medical History COVID-19 Migraine POTS (postural orthostatic tachycardia syndrome) Family History Family History Father Unknown family medical history Mother HTN (hypertension) Surgical History Surgical History History of wisdom tooth extraction Social History Social History Household Members: Family Housing: House Do you presently have visiting nurse or other home services: No Alcohol intake: never Patient Tobacco Use Status: Never used Tobacco Use of substances other than those prescribed or required for medical reasons: No Are you DNR?: No Advance Directives: No Advance Directives Information Provided: Yes service: No Meds Allergies Allergy/AdvReac Type Severity Reaction Status Date / Time lactose Allergy Intermediate Stomach Verified 09/01/22 13:04 Upset Sulfa (Sulfonamide Allergy Unknown UNKNOWN Verified 09/01/22 13:04 Antibiotics) [SULFA (SULFONAMIDE ANTIBIOTICS)] epinephrine Allergy Unknown Verified 09/01/22 13:04 mushroom Allergy Unknown Verified 09/01/22 13:04 Home Medications Medication Instructions Recorded Confirmed Last Taken Type albuterol sulfate 90 mcg/actuation 2 puff inhalation Q6H PRN 01/17/22 09/01/22 Unknown History breath activated powder inhaler Shortness Of Breath (ProAir RespiClick) fluticasone 55 mcg-salmeterol 14 2 puff inhalation BID 01/17/22 09/01/22 Unknown History mcg/actuation breath activated powder fluticasone propionate 50 2 spray intranasal DAILY 01/17/22 09/01/22 Unknown History mcg/actuation nasal spray,suspension mirtazapine 15 mg tablet 7.5 mg PO BEDTIME 01/17/22 09/01/22 Unknown History dicyclomine 10 mg capsule 1 cap PO QID PRN Abdominal 09/01/22 09/01/22 Unknown History Discomfort Exam Exam Date and Time: August 31, 2022 1319 Pertinent Lab Results Pertinent Lab Results: Laboratory Tests 05/09/22 05/09/22 10:18 10:18 WBC 9.1 Hgb 12.0 Hct 36.9 L Plt Count 225 Sodium 139 Potassium 4.0 Chloride 106 Carbon Dioxide 26 BUN 14 D Creatinine 0.77 Narrative Narrative: EKG 06/2022 sinus rhythm at 80/Min; rightward axis; no significant ST-T changes and otherwise unremarkable. ECHO 04/2022 Conclusions: - Normal study? Assessment and Plan Assessment Anesthesia Assessment: Chart Reviewed Documented by User: Lobito Nguyễn MD 09/01/22 13:29 [facility] Active Problems Active Problems: All Active Problems (Updated 07/05/22 @ 18:57 by Evan Acevedo MD) Malnutrition (Acute) Nasal sinus congestion (Acute) Nausea vomiting and diarrhea (Acute) Migraine with aura (Acute) Gastroenteritis (Acute) UTI (urinary tract infection) (Acute) POTS (postural orthostatic tachycardia syndrome) (Acute) asthma gerd Past Medical History Medical History COVID-19 Migraine POTS (postural orthostatic tachycardia syndrome) Family History Family History Father Unknown family medical history Mother HTN (hypertension) Family history of problems with anesthesia: No Surgical History Surgical History History of wisdom tooth extraction History of Problems with Anesthesia: No Social History Social History Household Members: Family Housing: House Do you presently have visiting nurse or other home services: No Alcohol intake: never Patient Tobacco Use Status: Never used Tobacco Use of substances other than those prescribed or required for medical reasons: No Are you DNR?: No Advance Directives: No Advance Directives Information Provided: Yes service: No Meds Allergies Allergy/AdvReac Type Severity Reaction Status Date / Time lactose Allergy Intermediate Stomach Verified 09/01/22 13:04 Upset Sulfa (Sulfonamide Allergy Unknown UNKNOWN Verified 09/01/22 13:04 Antibiotics) [SULFA (SULFONAMIDE ANTIBIOTICS)] epinephrine Allergy Unknown Verified 09/01/22 13:04 mushroom Allergy Unknown Verified 09/01/22 13:04 Home Medications Medication Instructions Recorded Confirmed Last Taken Type albuterol sulfate 90 mcg/actuation 2 puff inhalation Q6H PRN 01/17/22 09/01/22 Unknown History breath activated powder inhaler Shortness Of Breath (ProAir RespiClick) fluticasone 55 mcg-salmeterol 14 2 puff inhalation BID 01/17/22 09/01/22 Unknown History mcg/actuation breath activated powder fluticasone propionate 50 2 spray intranasal DAILY 01/17/22 09/01/22 Unknown History mcg/actuation nasal spray,suspension mirtazapine 15 mg tablet 7.5 mg PO BEDTIME 01/17/22 09/01/22 Unknown History dicyclomine 10 mg capsule 1 cap PO QID PRN Abdominal 09/01/22 09/01/22 Unknown History Discomfort Exam Airway Mallampati Class: III TM Dist: >3cm Neck ROM: Full Loose/Missing/Broken Teeth: No Heart: rrr Lungs: clear Assessment and Plan Final Anesthetic Review Family History of Problems with Anesthesia: No History of Problems with Anesthesia: No NPO: Yes ASA Class: II Final Preanesthetic Review: No Changes in Pt Med Stat, Meds/Allgs Chart Reviewed, Consent Obtained/Reviewed and Anes Risks/Benef Reviewed Patient Risk: Low Procedure Risk: Low Anesthetic Plan Anesthetic Plan: MAC: Disposition: Standard PACU
[2022-09-01] VITALS (14 sets, daily range): BP systolic 82–116; BP diastolic 49–81; PULSE 58–97; RESP 11–24; TEMP 35.9–36.6; O2SAT 97–100; BMI 25.4
--- NOTE | 2022-09-01 12:30 | MHC.SHP ---
Pre-Procedural Eval Section A Date of Service: 09/01/22 Section B Chief Complaint: N&V,Diarrhea Relevant Family History (Specify if Yes): No Relevant Social History: None Present Medications: see Short Stay Collaborative assessment Medical History: Significant History (POTS, migraines, covid, asthma ) History of Previous Operations: Relevant previous surgery/procedure and date(s) (PSH: wisdom teeth removal) Allergies: Allergies Allergy/AdvReac Type Severity Reaction Status Date / Time lactose Allergy Intermediate Stomach Verified 06/30/22 09:36 Upset Sulfa (Sulfonamide Allergy Unknown UNKNOWN Verified 06/30/22 09:36 Antibiotics) [SULFA (SULFONAMIDE ANTIBIOTICS)] epinephrine Allergy Unknown Verified 06/30/22 09:36 mushroom Allergy Unknown Verified 06/30/22 09:36 Review of Systems Sugical H&P ROS: Negative: Constitution, Cardiovascular, Respiratory, Neurological, Psychiatric, Hem-Onc, Allergic/Immunologic, Gastrointestinal, Genitourinary, Musculoskeletal, Integumentary, Endocrine and Eyes/Ears/Nose/Throat Exam Surgical H&P Exam: Normal: HEENT, Normal: Heart, Normal: Lungs, Normal: Extremities, Normal: Abdomen, Normal: Skin and Normal: Neurological Plan Diagnosis/Plan: Unchanged I have reviewed the history and physical and performed a pertinent physical examination on my patient. No changes have occurred unless specified.
[2022-09-01 12:46] LABS: UPreg QC Valid YES; Urine Pregnancy NEGATIVE (NEGATIVE)
[2022-09-01] MEDS: Lactated Ringers 1,000 ML 100 ML IVCONT (12:57)
--- NOTE | 2022-09-01 13:25 | PC.NURSE ---
Dr. Nguyễn at bedside and updated that patient has consistent PVC's. Assessing patient. Okay to proceed.
--- NOTE | 2022-09-01 13:59 | W.PM.OPN ---
Operative Note Operative Note Date of Service: 09/01/22 Narrative: Procedure Description: EGD Indication: nausea, satiety Anesthesia: MAC FLEXIBLE TRANSORAL UPPER GASTROINTESTINAL ENDOSCOPY UPPER ENDOSCOPY Consent: Indications for the procedure and potential complications of bleeding, perforation, reaction to medications and missed diagnosis were discussed with the patient and informed consent was obtained. Instrument: Olympus GIF H 190 J mid size upper endoscope Monitoring: Vital signs and clinical assessment, continuous EKG monitoring, Pulse oximetry, Carbon Dioxide monitoring and blood pressure monitoring were done throughout the procedure. Procedure: The patient was placed in the left lateral decubitis position and pre-procedure medications were administered and a bite block was placed. The endoscope was inserted into the mouth and advanced under direct vision to the third part of duodenum. A careful inspection was made as the upper endoscope was withdrawn including a retroflexed examination of the proximal stomach; Findings and interventions are described below. Findings: Larynx:normal Esophagus: GE junction at 35 cm, diaphragm hiatus at 35 cm, no varices or esophagitis. bx taken from GEJ, and random esophagus Stomach: Normal. Biopsies were obtained. Grade 2 flap valve on retroflexed examination of the cardia. There appeared to be peristalsis. Pylorus seemed tight, dilated with balloon to 18 mm, no tears seen Duodenum: Normal bulb and descending duodenum, bx taken Intervention: Biopsies as noted above, will also stain for mast cells and amyloid Impression/Findings: tight pylorus with dilation PLAN: if bx neg will get gastric emptying study
[2022-09-01] MEDS: ondansetron HCL 4 MG/2 ML VIAL IVPUSH (14:22)
== END 2022-09-01 17:15 | disposition home or self-care (01) ==
PROVIDERS: Nurse Practitioner; PCP Physician Assistant; Visit Provider Internal Medicine Gastroenterology
PROC: 0DJ08ZZ Inspection of Upper Intestinal Tract, Via Natural or Artificial Opening Endoscopic (ICD-10-PCS; CPT 43235; principal; 2022-09-01 13:50)
DX: R19.7 Diarrhea, unspecified (principal); R11.2 Nausea with vomiting, unspecified; K31.1 Adult hypertrophic pyloric stenosis; K29.50 Unspecified chronic gastritis without bleeding; K21.9 Gastro-esophageal reflux disease without esophagitis; K44.9 Diaphragmatic hernia without obstruction or gangrene; J45.909 Unspecified asthma, uncomplicated; G90.A Postural orthostatic tachycardia syndrome [POTS]; G43.109 Migraine with aura, not intractable, without status migrainosus; Z86.16 Personal history of COVID-19; Z88.2 Allergy status to sulfonamides; Z88.8 Allergy status to other drugs, medicaments and biological substances
CPT/HCPCS: 43245; 43239; 81025; 88305; 88313; 88341; 88342; C1726; J2405

== ENCOUNTER → 2022-09-27 08:59 | Outpatient (REF) | payer OTHER, SELFPAY | LOC: HO.SL 08:59 | PROVIDERS: Visit Provider Nurse Practitioner Family | DX: Z13.89 Encounter for screening for other disorder (principal) ==

== ENCOUNTER 2022-10-26 17:58 | Outpatient (REF) | payer OTHER, SELFPAY ==
[2022-11-01 08:18] LABS: Creatinine 24Hr Urine 1695 mg/24 h (603 - 1783); N-Methylhistamine, 24Hr Urine 96 mcg/g Cr (30-200); Total Volume 1630 mL
== END 2022-10-26 17:59 | disposition home or self-care (01) ==
LOC: HO.LNP 17:58
PROVIDERS: Visit Provider Internal Medicine Gastroenterology
DX: R19.7 Diarrhea, unspecified (principal); I49.8 Other specified cardiac arrhythmias; R11.2 Nausea with vomiting, unspecified; G43.109 Migraine with aura, not intractable, without status migrainosus; E46 Unspecified protein-calorie malnutrition
CPT/HCPCS: 81050; 82542

== ENCOUNTER → 2022-12-12 13:44 | Outpatient (BNVA) | payer OTHER, SELFPAY | PROVIDERS: PCP Physician Assistant; Visit Provider Nurse Practitioner Family | DX: Z13.89 Encounter for screening for other disorder (principal) ==

== ENCOUNTER → 2023-04-18 15:20 | Outpatient (BNVA) | payer OTHER, SELFPAY | PROVIDERS: PCP Physician Assistant; Referring Provider Physician Assistant; Visit Provider Internal Medicine | DX: I49.8 Other specified cardiac arrhythmias (principal) | CPT/HCPCS: 93005 ==

== ENCOUNTER 2023-09-08 12:28 | Outpatient (REF) | payer OTHER, SELFPAY | END 2023-09-08 12:29 | disposition home or self-care (01) | LOC: HO.LAB 12:28 | PROVIDERS: PCP Physician Assistant; Visit Provider Internal Medicine Gastroenterology | DX: Z13.89 Encounter for screening for other disorder (principal) ==

== ENCOUNTER 2023-09-08 12:28 | Outpatient (AMB) | payer OTHER, SELFPAY ==
[2023-09-08 12:30] VITALS: BP 119/73; PULSE 89; O2SAT 99; BMI 27.5
--- NOTE | 2023-09-08 12:30 | MHC.OFFVIS ---
Intake Vital Signs 09/08/23 12:30 Height 5 ft 1 in Weight 145 lb 8.081 oz BMI 27.5 BP 119/73 Blood Pressure Location Rt brachial Position Sitting Pulse 89 Pulse Source Pulse Oximeter Pulse Oximetry (%) 99 Oxygen Delivery Method Room Air Intake Visit Reasons: follow up Intake Note: Pt presents to the office today for a follow up. Pt states she is still having a lot of GI distress. Pt states she is usually always nauseous, had an episode of vomiting about 2 weeks ago that lasted for 3-4 days. Pt states she has been having uncontrolled diarrhea as well. Allergies lactose Allergy (Intermediate, Verified 09/08/23 12:33) Stomach Upset Sulfa (Sulfonamide Antibiotics) [SULFA (SULFONAMIDE ANTIBIOTICS)] Allergy (Unknown, Verified 09/08/23 12:33) UNKNOWN epinephrine Allergy (Verified 09/08/23 12:33) Unknown mushroom Allergy (Verified 09/08/23 12:33) Unknown HPI follow up HPI Details 28 yr old f w/ POTS being seen for f/u RECAP: she has always had stomach issues on and off over the years she has been having epigastric pain she has been having on and off nausea and vomiting avoiding lactose as she is intolerant she has stable weight she has early satiety she has bloating and gas she has constipation and diarrhea, alternating she has bad reflux sx she has brain fog occ hives not had swollen lips for years she had EGD and colonoscopy in the past maybe 7 yrs ago, and she had gastritis US 12/2021--debris in GB otherwise nml I did EGD 08/2022: tight pylorus --was dilated Path: high numbers of mast cells in GEJ, papilloma removed as well from esophagus LABS: raised histamine, low Vit A, folate and B12 INTERIM: she noted diarrhea for last few weeks maybe slowed down, but cut back on food she saw blood as well on wiping she also had nausea and emesis epigastric pain, with dull aching, seems more often she took out gluten but no effect she had BM biopsy which was negative at [facility] 24 hr urine was neg for methylhistamine she is taking xyzol and omeprazole A/P: 1/ POT syndrome with GI sx, which can be seen, may have gastroparesis DDX; Mast cell d/o, H pylori gastritis, IBS, small nerve fiber neuropathy (has pins and needles in hands and feet with joint swelling, could also be SLE) 2/ Esophageal papiloma Plan: 1/ scheduled bently rather than prn 2/ add pepcid 40 mg BId and see if helps 3/ check stool tests --get labs from [facility] 2 wks ago 4/ cont with nutritional supplements 5/ possible trial of ABX if above neg and no response to pepcid 6/ she will feliciano up neuro for EMG 7/ ?rept EGD with dilation since she felt better after that till Summer [facility] Medical History COVID-19 Migraine POTS (postural orthostatic tachycardia syndrome) Surgical History History of esophagogastroduodenoscopy (EGD) History of wisdom tooth extraction Family History Father Unknown family medical history Mother HTN (hypertension) Social History Household Members: Family Housing: House Do you presently have visiting nurse or other home services: No Alcohol intake: never Patient Tobacco Use Status: Never used Tobacco service: No Physical Exam Vital Signs: Last Vital Signs Pulse 89 09/08/23 12:30 BP 119/73 09/08/23 12:30 Pulse Ox 99 09/08/23 12:30 Oxygen Delivery Method Room Air 09/08/23 12:30 BMI result Body Mass Index 27.5 Assessment & Plan Assessment & Plan (1) Gastroenteritis: Code(s): K52.9 - Noninfective gastroenteritis and colitis, unspecified (2) POTS (postural orthostatic tachycardia syndrome): Code(s): I49.8 - Other specified cardiac arrhythmias Orders: Orders CDiff Gene PCR 09/08/23 K52.9 - Noninfective gastroenteritis and colitis, unspecified Pancreatic Elastase-1 09/08/23 K52.9 - Noninfective gastroenteritis and colitis, unspecified GI Panel 09/08/23 R19.7 - Diarrhea, unspecified, K52.9 - Noninfective gastroenteritis and colitis, unspecified Lactoferrin, Fecal, Quant. 09/08/23 K51.50 - Left sided colitis without complications, K52.9 - Noninfective gastroenteritis and colitis, unspecified Medications: New famotidine (Pepcid) 40 mg PO BID 60 tabs 2RF Coding Level of Care Code Est Pt Level 3 (45148) Diagnoses Gastroenteritis K52.9 POTS (postural orthostatic tachycardia syndrome) I49.8
== END 2023-09-08 13:21 | disposition home or self-care (01) ==
PROVIDERS: PCP Physician Assistant; Visit Provider Internal Medicine Gastroenterology
DX: K52.9 Noninfective gastroenteritis and colitis, unspecified (principal); I49.8 Other specified cardiac arrhythmias
CPT/HCPCS: 99213

== ENCOUNTER 2023-10-13 12:11 | Outpatient (AMB) | payer OTHER, SELFPAY ==
--- NOTE | 2023-10-13 12:13 | MHC.OFFVIS ---
Intake Vital Signs 10/13/23 12:15 Height 5 ft 1 in Weight 142 lb BMI 26.8 BP 106/70 Blood Pressure Location Lt brachial Position Sitting Pulse 82 Intake Visit Reasons: 4 week follow up Intake Note: Patient 4 weeks follow up Gastroenteritis. Patient cc: N/V on and off, abdominal pain come and go, couples of dates ago she was with diarrhea, denies any other GI issues. 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 Accompanied by: Self / Same As Patient Allergies lactose Allergy (Intermediate, Verified 10/13/23 12:13) Stomach Upset Sulfa (Sulfonamide Antibiotics) [SULFA (SULFONAMIDE ANTIBIOTICS)] Allergy (Unknown, Verified 10/13/23 12:13) UNKNOWN epinephrine Allergy (Verified 10/13/23 12:13) Unknown mushroom Allergy (Verified 10/13/23 12:13) Unknown HPI 4 week follow up HPI Details 28 yr old f called for f/u RECAP: she has always had stomach issues on and off over the years she has been having epigastric pain she has been having on and off nausea and vomiting avoiding lactose as she is intolerant she has stable weight she has early satiety she has bloating and gas she has constipation and diarrhea, alternating she has bad reflux sx she has brain fog occ hives not had swollen lips for years she had BM biopsy which was negative at [facility] 24 hr urine was neg for methylhistamine she is taking xyzol and omeprazole she had EGD and colonoscopy in the past maybe 7 yrs ago, and she had gastritis US 12/2021--debris in GB otherwise nml I did EGD 08/2022: tight pylorus --was dilated Path: high numbers of mast cells in GEJ, papilloma removed as well from esophagus LABS: raised histamine, low Vit A, folate and B12 INTERIM: she just found out she is allergic to wheat and shrimp and milk she felt better with pepcid she is still trying to figure out her diet she feels much better with scheduled bentyl nausea still an issue, usu after eating A/P: 1/ POT syndrome with GI sx, which can be seen, may have gastroparesis DDX; Mast cell d/o, H pylori gastritis, IBS, small nerve fiber neuropathy (has pins and needles in hands and feet with joint swelling, could also be SLE) 2/ Esophageal papiloma Plan: 1/ cont scheduled bently rather than prn and can take before food as well 2/ cont pepcid 40 mg BId as helping 3/ if has bad flares can use short course pred or budesonide 4/ wheat avoidance PFSH Medical History COVID-19 Migraine POTS (postural orthostatic tachycardia syndrome) Surgical History History of esophagogastroduodenoscopy (EGD) History of wisdom tooth extraction Family History Father Unknown family medical history Mother HTN (hypertension) Household Members: Family Housing: House Do you presently have visiting nurse or other home services: No Alcohol intake: never Patient Tobacco Use Status: Never used Tobacco service: No Physical Exam Vital Signs: Last Vital Signs Pulse 82 10/13/23 12:15 BP 106/70 10/13/23 12:15 BMI result Body Mass Index 26.8 Assessment & Plan Assessment & Plan Medications: New dicyclomine 10 mg PO QID 90 caps 1RF Refilled famotidine (Pepcid) 40 mg PO BID 60 tabs 4RF Telehealth Telehealth Location of provider rendering services: practice address Location of patient: address on file Patient Identification confirmed using: Name, : Yes Telehealth method: video Patient verbally consented to treatment: Yes Patient verbally consented to billing insurance company: Yes Patient informed of any privacy concerns related to visit: Yes Minutes spent on Phone/Video with Pt.: 11 Coding Level of Care Code Tele Est Pt Level 3 (92098)
[2023-10-13 12:15] VITALS: BP 106/70; PULSE 82; BMI 26.8
== END 2023-10-13 12:51 | disposition home or self-care (01) ==
PROVIDERS: PCP Physician Assistant; Visit Provider Internal Medicine Gastroenterology
DX: K52.9 Noninfective gastroenteritis and colitis, unspecified (principal)
CPT/HCPCS: 99213

== ENCOUNTER → 2023-10-13 12:11 | Outpatient (BNVA) | payer OTHER, SELFPAY | PROVIDERS: PCP Physician Assistant; Visit Provider Internal Medicine Gastroenterology ==

== ENCOUNTER 2023-10-27 11:06 | Outpatient (AMB) | payer OTHER, SELFPAY ==
--- NOTE | 2023-10-27 11:21 | MHC.OFFVIS ---
Intake Vital Signs 10/27/23 11:22 Weight 143 lb 2 oz BP 110/66 Blood Pressure Location Rt brachial Position Sitting Pulse 93 Pulse Source Pulse Oximeter Pulse Oximetry (%) 97 Oxygen Delivery Method Room Air Intake Visit Reasons: Follow up/ Confirmed Allergies lactose Allergy (Intermediate, Verified 10/27/23 11:25) Stomach Upset Sulfa (Sulfonamide Antibiotics) [SULFA (SULFONAMIDE ANTIBIOTICS)] Allergy (Unknown, Verified 10/27/23 11:25) UNKNOWN epinephrine Allergy (Verified 10/27/23 11:25) Unknown mushroom Allergy (Verified 10/27/23 11:25) Unknown Medication List - Last Reconciled 10/27/23 by ISAAK Freed albuterol sulfate 90 mcg/actuation (ProAir RespiClick) 2 puffs inhalation Q6H PRN cholecalciferol (vitamin D3) 1,250 mcg PO QWEEK cyanocobalamin (vitamin B-12) 1,000 mcg PO DAILY dicyclomine 10 mg PO QID PRN dicyclomine 10 mg PO QID famotidine (Pepcid) 40 mg PO BID fremanezumab-vfrm (Ajovy Syringe) inject 225 mg subcut monthly; 30 days ivabradine (Corlanor) 5 mg PO BID 90 days methylphenidate HCl 5 mg PO BID 30 days mirtazapine 7.5 mg (1/2 x 15 mg) PO BEDTIME 30 days HPI HPI Comments History of Present Illness Details 28-yr-old female presents for f/u visit, accompanied by her friend. Last visist was almost 1 yr ago. She had a prolonged bouts of diarrhea from Jun-Jul, then started having vomitting. 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 She has been dx'd w/ food and environmental allergies- wheat, shellfish. She is hoping to have more definite testing for celiac dz. She had a bone marrow bx to assess for mast cell d/o by Dr Carbajal- was negative. She is taking a H2 miguel. She is having increased BLE L > R numbness and pins/needles, also pins and needles in her hands. She is also having left hand and feet- coldness not a/w swelling or skin color changes. She states her migraines are overall stable, although a bit increased since she has not been feeling well. The methylphenidate does help her cognition but has not requested refill as it is often challenging to refill. Cardiology has referred her to [place] for a POTs specialist, however the wait lsit is years at this time. [facility] Medical History COVID-19 Migraine POTS (postural orthostatic tachycardia syndrome) Surgical History History of esophagogastroduodenoscopy (EGD) History of wisdom tooth extraction Family History Father Unknown family medical history Mother HTN (hypertension) Social History Household Members: Family Housing: House Do you presently have visiting nurse or other home services: No Alcohol intake: never Patient Tobacco Use Status: Never used Tobacco service: No Review of Systems Const All systems reviewed & are unremarkable except as noted in HPI and below Physical Exam Vital Signs: Last Vital Signs Pulse 93 10/27/23 11:22 BP 110/66 10/27/23 11:22 Pulse Ox 97 10/27/23 11:22 Oxygen Delivery Method Room Air 10/27/23 11:22 Const General: cooperative and no acute distress Orientation/consciousness: patient oriented x3 HEENT Head: Yes normocephalic Resp Effort & Inspection: normal respiratory effort and able to speak in complete sentences Neuro General: patient oriented x3, gait normal and CN's II-XI intact bilaterally Cognition (Neuro): normal cognition Motor exam (neuro): 5/5 motor strength present throughout Psych Appearance: grossly normal Mental Status: mental status grossly normal Speech and movement: Normal speech and movement present Affect: normal affect Attitude: cooperative Thought process: Normal thought process present Thought content: Normal thought content present Insight: Good insight present (Psych) Judgement: Good judgement present (Psych) Assessment & Plan Assessment & Plan (1) Paresthesia of both lower extremities: Code(s): R20.2 - Paresthesia of skin (2) POTS (postural orthostatic tachycardia syndrome): Code(s): I49.8 - Other specified cardiac arrhythmias Plan For migraine: Continue Ajovy and mirtazapine for migraine prevention, as she is having good clinical effect. Ubrelvy prn. Tx contraindications: Triptans- d/t PVCs and POTs. Fioricet d/t taking Corlanor. For sleep issues: HST- previously did not record enough data- consider repeating in f/u. For brain fog in setting of POTs: Continue frequent fluids, salty snacks, and paced activities. Refill methylphenidate as needed. Treating suspected Mast cell d/o may be helpful as well- would continue H2 antagonist. Could consider trial of singulair as well. Paresthesias: Check labs for common etiologies. Will reorder BLE and BUE EMG/NCS- pt is concerned about risk fo small fiber neuropathy. f/u in 3 months or sooner prn. Orders: Orders NE electromyogram (EMG) 10/27/23 E46 - Unspecified protein-calorie malnutrition, I49.8 - Other specified cardiac arrhythmias, R11.2 - Nausea with vomiting, unspecified, R19.7 - Diarrhea, unspecified, R20.2 - Paresthesia of skin Methylmalonic Acid 10/27/23 D64.9 - Anemia, unspecified, I49.8 - Other specified cardiac arrhythmias, R11.2 - Nausea with vomiting, unspecified, R19.7 - Diarrhea, unspecified, R20.2 - Paresthesia of skin Homocysteine 10/27/23 D64.9 - Anemia, unspecified, I49.8 - Other specified cardiac arrhythmias, R11.2 - Nausea with vomiting, unspecified, R19.7 - Diarrhea, unspecified, R20.2 - Paresthesia of skin Hemoglobin A1c 10/27/23 D64.9 - Anemia, unspecified, I49.8 - Other specified cardiac arrhythmias, R11.2 - Nausea with vomiting, unspecified, R19.7 - Diarrhea, unspecified, R20.2 - Paresthesia of skin Complete Blood Count Auto Diff 10/27/23 D64.9 - Anemia, unspecified, I49.8 - Other specified cardiac arrhythmias, R11.2 - Nausea with vomiting, unspecified, R19.7 - Diarrhea, unspecified, R20.2 - Paresthesia of skin Comprehensive Met. Panel 10/27/23 D64.9 - Anemia, unspecified, I49.8 - Other specified cardiac arrhythmias, R11.2 - Nausea with vomiting, unspecified, R19.7 - Diarrhea, unspecified, R20.2 - Paresthesia of skin NE electromyogram (EMG) 10/27/23 E46 - Unspecified protein-calorie malnutrition, I49.8 - Other specified cardiac arrhythmias, R11.2 - Nausea with vomiting, unspecified, R19.7 - Diarrhea, unspecified, R20.2 - Paresthesia of skin TSH reflex Free T4 10/27/23 D64.9 - Anemia, unspecified, I49.8 - Other specified cardiac arrhythmias, R11.2 - Nausea with vomiting, unspecified, R19.7 - Diarrhea, unspecified, R20.2 - Paresthesia of skin Vitamin B12 and Folate 10/27/23 D64.9 - Anemia, unspecified, I49.8 - Other specified cardiac arrhythmias, R11.2 - Nausea with vomiting, unspecified, R19.7 - Diarrhea, unspecified, R20.2 - Paresthesia of skin IRON PROFILE 10/27/23 D64.9 - Anemia, unspecified, I49.8 - Other specified cardiac arrhythmias, R11.2 - Nausea with vomiting, unspecified, R19.7 - Diarrhea, unspecified, R20.2 - Paresthesia of skin Erythrocyte Sedimentation Rate 10/27/23 D64.9 - Anemia, unspecified, I49.8 - Other specified cardiac arrhythmias, R11.2 - Nausea with vomiting, unspecified, R19.7 - Diarrhea, unspecified, R20.2 - Paresthesia of skin CRP High Sensitivity 10/27/23 D64.9 - Anemia, unspecified, I49.8 - Other specified cardiac arrhythmias, R11.2 - Nausea with vomiting, unspecified, R19.7 - Diarrhea, unspecified, R20.2 - Paresthesia of skin Coding Level of Care Code Est Pt Level 4 (32203) Diagnoses Paresthesia of both lower extremities R20.2 POTS (postural orthostatic tachycardia syndrome) I49.8
[2023-10-27 11:22] VITALS: BP 110/66; PULSE 93; O2SAT 97
== END 2023-10-27 12:16 | disposition home or self-care (01) ==
PROVIDERS: PCP Physician Assistant; Visit Provider Nurse Practitioner Family
DX: R20.2 Paresthesia of skin (principal); I49.8 Other specified cardiac arrhythmias
CPT/HCPCS: 99214

== ENCOUNTER → 2023-10-27 11:06 | Outpatient (BNVA) | payer OTHER, SELFPAY | PROVIDERS: PCP Physician Assistant; Visit Provider Nurse Practitioner Family ==

== ENCOUNTER 2023-12-14 13:04 | Outpatient (REF) | payer OTHER, SELFPAY ==
--- NOTE | 2023-12-14 13:13 | EMG_ITS ---
Chief complaint: Paresthesias in both feet Reason for referral: Evaluate for neuropathy Referred by: Rose Nava NP Procedure done: Bilateral lower extremity NCS/EMG Precautions and/or limitations: None The limb temperature was monitored continuously and remained between 32-36 degrees C during the performance of the NCS. Ulnar motor NCS was performed with moderate elbow flexion between 70-90 degrees, with across-elbow distance of 10 cm. Nerve Conduction Studies Anti Sensory Summary Table ?Stim Site NR Onset (ms) Norm Onset (ms) Peak (ms) Norm Peak (ms) O-P Amp (?V) Norm O-P Amp Site1 Site2 Delta-0 (ms) Dist (cm) Adria (m/s) Norm Adria (m/s) Left Sural Anti Sensory (Lat Mall) Calf ? 2.7 3.7 <4.0 7.9 >5.0 Calf Lat Mall 2.7 14.0 52 Right Sural Anti Sensory (Lat Mall) Calf ? 2.8 3.6 <4.0 11.4 >5.0 Calf Lat Mall 2.8 14.0 50 Motor Summary Table ?Stim Site NR Onset (ms) Norm Onset (ms) O-P Amp (mV) Norm O-P Amp iAmp (mV) Amp (1st) (%) Site1 Site2 Delta-0 (ms) Dist (cm) Adria (m/s) Norm Adria (m/s) Left Peroneal Motor (Ext Dig Brev) Ankle ? 3.8 <4.0 6.9 >2.5 9.5 100.0 Ankle Ext Dig Brev 3.8 0.0 B Fib ? 9.8 6.2 8.4 89.9 B Fib Ankle 6.0 30.0 50 >40 Poplt ? 10.4 6.4 8.7 92.8 Poplt B Fib 0.6 5.0 83 >40 Right Peroneal Motor (Ext Dig Brev) Ankle ? 3.8 <4.0 7.9 >2.5 9.6 100.0 Ankle Ext Dig Brev 3.8 0.0 B Fib ? 9.6 7.1 8.5 89.9 B Fib Ankle 5.8 30.5 53 >40 Poplt ? 10.4 7.4 9.0 93.7 Poplt B Fib 0.8 5.0 62 >40 Left Tibial Motor (Abd Lenz Brev) Ankle ? 3.3 <5 15.1 >2.5 21.2 100.0 Ankle Abd Lenz Brev 3.3 0.0 Knee ? 10.2 17.4 26.1 115.2 Knee Ankle 6.9 35.0 51 >40 Right Tibial Motor (Abd Lenz Brev) Ankle ? 3.4 <5 10.8 >2.5 16.6 100.0 Ankle Abd Lenz Brev 3.4 0.0 Knee ? 10.7 11.8 17.7 109.3 Knee Ankle 7.3 36.0 49 >40 EMG ?Side Muscle Nerve Root Ins Act Fibs Psw Amp Dur Poly Recrt Int Pat Comment Right AbdHallucis MedPlantar S1-2 Nml Nml Nml Nml Nml 0 Nml Complete Right AntTibialis Dp Br Peron L4-5 Nml Nml Nml Nml Nml 0 Nml Complete Right PostTibialis Tibial L5, S1 Nml Nml Nml Nml Nml 0 Nml Complete Right MedGastroc Tibial S1-2 Nml Nml Nml Nml Nml 0 Nml Complete Right VastusMed Femoral L2-4 Nml Nml Nml Nml Nml 0 Nml Complete Left AbdHallucis MedPlantar S1-2 Nml Nml Nml Nml Nml 0 Nml Complete Left AntTibialis Dp Br Peron L4-5 Nml Nml Nml Nml Nml 0 Nml Complete Left PostTibialis Tibial L5, S1 Nml Nml Nml Nml Nml 0 Nml Complete Left MedGastroc Tibial S1-2 Nml Nml Nml Nml Nml 0 Nml Complete Left VastusMed Femoral L2-4 Nml Nml Nml Nml Nml 0 Nml Complete FINDINGS: All motor and sensory nerves tested showed normal latencies, amplitudes and conduction velocities. Concentric needle EMG was performed in selected muscles of the bilateral lower extremity. Study did not reveal signs of electric abnormalities as shown in the table below. IMPRESSION: 1. This is a normal study. 2. There is no electrodiagnostic evidence for peroneal neuropathy, tibial neuropathy, lumbosacral plexopathy, lumbar radiculopathy, or peripheral neuropathy. Thank you for your kind referral. Carole Alas MD, SARAH Board Certified, [place] [employer] and [employer] (ABPMR) Board Certified, [place] [employer] Electrodiagnostic [employer] (ABEM) CODIN 55908 x 2 MTDD
== END 2023-12-14 13:05 | disposition home or self-care (01) ==
LOC: HO.NEURO 13:04
PROVIDERS: PCP Physician Assistant; Visit Provider Nurse Practitioner Family
DX: R20.2 Paresthesia of skin (principal)
CPT/HCPCS: 95886; 95909

== ENCOUNTER → 2023-12-14 13:13 | Outpatient (BNV) | payer OTHER, SELFPAY | PROVIDERS: PCP Physician Assistant; Visit Provider Physical Medicine & Rehabilitation | DX: M79.671 Pain in right foot (principal); M79.672 Pain in left foot; R20.2 Paresthesia of skin | CPT/HCPCS: 95886; 95909 ==

== ENCOUNTER 2024-02-23 08:30 | Emergency (ER) | payer OTHER, SELFPAY ==
[2024-02-23 08:45] VITALS: BP 114/73; PULSE 104; RESP 20; TEMP 37; O2SAT 99; BMI 26.2
[2024-02-23 09:02] LABS: MANUAL DIFF FLAG NO
[2024-02-23 09:14] LABS: Basophils Percent Auto 0.2 % (0-2); Eosinophils Percent Auto 0.2 % (0-4); Hematocrit 42.3 % (37.0-47.0); Hemoglobin 14.2 g/dl (12.0-16.0); Imm Gran Abs Auto 0.08 X10*3/uL (0.00-0.03); Imm Gran Pct Auto 0.4 % (0.0-0.4); Lymphocytes Absolute Auto 0.9 X10*3/uL (1.2-4.9); Lymphocytes Percent Auto 4.7 % (20-40); Mean Corpuscular HGB Conc 33.6 g/dl (31.0-35.0); Mean Corpuscular Hemoglobin 29.3 pg (27.0-33.0); Mean Corpuscular Volume 87.4 fL (80.0-98.0); Mean Platelet Volume 10.8 fL (9.4-12.3); Monocytes Percent Auto 5.3 % (2-11); Neutrophils Absolute Auto 16.4 x10*3/uL (2.0-8.3); Neutrophils Percent Auto 89.2 % (45-73); Platelet Count 295 X10*3/uL (160-400); Red Blood Count 4.84 X10*6/uL (4.20-5.50); Red Cell Distribution Width 12.9 % (11.0-16.0); White Blood Count 18.4 X10*3/uL (4.8-10.8)
[2024-02-23 09:15] LABS: Appearance Urine Turbid; Color Urine Dark Yellow; Glucose Urine UA Negative (Negative); Leukocyte Esterase Urine Trace (Negative); Nitrite Urine Negative (Negative); PH 5.5 (5.0-9.0); Specific Gravity - Urine >= 1.030 (1.005-1.025); UMIC TRIGGER UACC YES; Urine Blood Negative (Negative); Urine Ketones Trace mg/dL (Negative); Urine Protein 30 (1+) mg/dL (Neg-Trace)
[2024-02-23 09:19] LABS: UPreg QC Valid YES; Urine Pregnancy NEGATIVE (NEGATIVE)
[2024-02-23 09:28] LABS: Bacteria Urine 3+ (None Seen); Calcium Oxalate Crystals Urine Present; RBC Urine 0-2 /HPF (0-2); Squamous Epithelial Cell Urine >20 /HPF (0-2); WBC Urine 0-5 /HPF (0-5)
[2024-02-23 09:42] LABS: Alanine Aminotransferase 18 U/L (0-31); Albumin Level 4.7 g/dL (3.5-5.0); Alkaline Phosphatase 71 U/L (39-117); Anion Gap 14 (12-20); Aspartate Amino Transferase 24 U/L (5-31); Bilirubin Total 0.4 mg/dL (0.0-1.0); Blood Urea Nitrogen 17 mg/dL (9-16); Calcium 9.9 mg/dL (8.4-10.2); Carbon Dioxide 21 mmol/L (22-29); Chloride 107 mmol/L (96-108); Creatinine Clr Calc Pharmacy 72.9; Estimated Glomerular Filt Rate > 60; Glucose Random 115 mg/dL (60-115); Sodium 138 mmol/L (135-145); Total Protein 8.6 g/dL (6.5-8.0)
--- NOTE | 2024-02-23 10:08 | ED.NAVMDI ---
HPI - Nausea/Vomiting/Diarrhea General Chief complaint: Nausea/Vomiting/Diarrhea Stated complaint: vomiting since 4a Time Seen by Provider: 02/23/24 10:08 Source: patient Mode of arrival: ambulatory Limitations: no limitations History of Present Illness HPI Narrative: Patient is a 29-year-old female with history of migraines, POTS presenting to the emergency department with complaint of nausea, vomiting, and diarrhea since 4:00 a.m. today. She denies abdominal pain, does report some epigastric discomfort. Denies any hematemesis, hematochezia, or melena. States for the past few hours she has been dry heaving. Denies fevers. Denies dysuria, frequency or other urinary symptoms. Denies known sick contacts. Has attempted small sips of fluids but this causes her to vomit/dry heave. elicited complaint: nausea, vomiting and diarrhea Onset (ago): hour(s) Description of vomiting: food contents and watery Description of diarrhea: watery Associated nausea: Yes Associated abdominal pain: No Relieving factors: none Associated symptoms: denies other symptoms Treatment prior to arrival: none Related Data Home Medications Medication Instructions Recorded Confirmed albuterol sulfate 90 mcg/actuation 2 puff inhalation Q6H PRN 01/17/22 10/27/23 breath activated powder inhaler Shortness Of Breath (ProAir RespiClick) cholecalciferol (vitamin D3) 1,250 1,250 mcg PO QWEEK 09/07/22 10/27/23 mcg (50,000 unit) capsule dicyclomine 10 mg capsule 10 mg PO QID PRN Abdominal 04/18/23 10/27/23 Discomfort Previous Rx's Medication Instructions Recorded cyanocobalamin (vitamin B-12) 1,000 mcg PO DAILY #90 tabs 05/11/22 1,000 mcg tablet fremanezumab-vfrm 225 mg/1.5 mL 225 mg (1.5 mL) subcut .COMPLEX 30 03/06/23 subcutaneous syringe ([employer] days #1.5 mL Syringe) methylphenidate HCl 5 mg tablet 5 mg PO BID 30 days #60 tabs 05/29/23 ivabradine 5 mg tablet (Corlanor) 5 mg PO BID 90 days #180 tabs 06/15/23 dicyclomine 10 mg capsule 10 mg PO QID #90 caps 10/13/23 famotidine 40 mg tablet (Pepcid) 40 mg PO BID #60 tabs 10/13/23 powzprrcpi-vsqplctbckaqt-rglvrhbc 1 cap PO Q4H PRN pain 30 days #20 12/07/23 50 mg-325 mg-40 mg capsule caps mirtazapine 15 mg tablet 7.5 mg (1/2 x 15 mg) PO BEDTIME 30 01/04/24 days #15 tabs ondansetron 4 mg disintegrating 4 mg PO Q8H PRN nausea and 02/23/24 tablet vomiting #10 tabs Allergies Allergy/AdvReac Type Severity Reaction Status Date / Time lactose Allergy Intermediate Stomach Verified 02/23/24 08:45 Upset Sulfa (Sulfonamide Allergy Unknown UNKNOWN Verified 02/23/24 08:45 Antibiotics) [SULFA (SULFONAMIDE ANTIBIOTICS)] epinephrine Allergy Unknown Verified 02/23/24 08:45 gluten Allergy Diarrhea Verified 02/23/24 08:45 mushroom Allergy Unknown Verified 02/23/24 08:45 Review of Systems Review of Systems: As per HPI. Yes all other systems are reviewed and are negative Constitutional: Constitutional: Reports as per HPI Gastrointestinal: Gastrointestinal: Reports nausea PMFSH Past Medical History Medical History COVID-19 Migraine POTS (postural orthostatic tachycardia syndrome) Surgical History History of esophagogastroduodenoscopy (EGD) History of wisdom tooth extraction Family History Family History Father Unknown family medical history Mother HTN (hypertension) Social History Social History Household Members: Family Housing: House Do you presently have visiting nurse or other home services: No Alcohol intake: never Patient Tobacco Use Status: Never used Tobacco Smoked in Last 30 Days: No Use of substances other than those prescribed or required for medical reasons: No Advance Directives: No Advance Directives Information Provided: No service: No Physical Exam Vital Signs: Vital Signs: Last Vital Signs Temp 98.6 F 02/23/24 08:45 Pulse 80 02/23/24 11:55 Resp 18 02/23/24 11:55 BP 90/53 L 02/23/24 11:55 Pulse Ox 98 02/23/24 11:55 O2 Del Method Room Air 02/23/24 11:55 BMI result Body Mass Index 26.2 Vital signs have been reviewed and appear to be correct. Blood pressure normal. Heart rate slightly tachycardic. Respiratory rate normal. Temperature normal. Oxygen saturation normal. Const: General: cooperative, healthy appearing and no acute distress Orientation/consciousness: oriented to person, oriented to place, oriented to time and patient oriented x3 Limitations: no limitations HEENT: Head: Yes normocephalic and Yes atraumatic Ears: external ears normal General nose exam: Normal external nose present Face and sinus: Yes face symmetric Mouth: oropharynx normal and moist mucous membranes Throat: Yes uvula midline Eyes: Pupils: Equal, round and reactive pupils present Neck: Neck: Yes normal visual inspection and Yes supple Resp: Effort & Inspection: normal respiratory effort and able to speak in complete sentences Auscultation: clear to auscultation bilaterally Cardio: Rate: regular rate Rhythm: regular rhythm Heart sounds: S1 normal heart sound present and S2 normal heart sound present GI: Palpation (GI): Soft to palpation and nontender Auscultation: normoactive bowel sounds : General: Yes no CVA tenderness Back/Spine/Pelvis: Back: no CVA tenderness Skin: General skin exam: elasticity normal and turgor normal Neuro: General: oriented to person, oriented to place, oriented to time, patient oriented x3, moves all extremities, no focal motor deficits and CN's II-XI intact bilaterally Cranial nerves: Yes Equal, round and reactive pupils present Cognition (Neuro): normal cognition Extrem: General: Yes full ROM, Yes no pedal edema and Yes no calf tenderness Psych: Mental Status: mental status grossly normal Affect: normal affect Thought process: Normal thought process present Medications Administered Discontinued Medications Generic Name Dose Route Start Last Admin Trade Name Freq PRN Reason Stop Dose Admin Diphenhydramine HCl 25 mg 02/23/24 11:25 02/23/24 11:47 Diphenhydramine Hcl 50 Mg/Ml Vial IVPUSH 02/23/24 11:26 25 mg ONCE ONE Administration Sodium Chloride 1,000 mls @ 999 mls/hr 02/23/24 10:15 02/23/24 11:49 Ns IV 02/23/24 11:15 Infused .Q1H1M DANO Infusion Sodium Chloride 1,000 mls @ 999 mls/hr 02/23/24 11:30 02/23/24 12:59 Ns IV 02/23/24 12:30 Infused .Q1H1M DANO Infusion Metoclopramide HCl 10 mg 02/23/24 11:25 02/23/24 11:52 Metoclopramide Hcl 10 Mg/2 Ml Vial IVPUSH 02/23/24 11:26 10 mg ONCE ONE Administration Ondansetron HCl 4 mg 02/23/24 10:09 02/23/24 10:33 Ondansetron Hcl 4 Mg/2 Ml Vial IVPUSH 02/23/24 10:10 4 mg ONCE ONE Administration Medical Decision Making Medical Decision Making [facility] Narrative: Patient is a 29-year-old female with history of migraines, POTS presenting to the emergency department with complaint of nausea, vomiting, and diarrhea since 4:00 a.m. today. On exam patient is awake, A+Ox3, very slightly tachycardic, VS otherwise WNL, afebrile, normal neurological exam without focal deficits, physical exam findings as above. Given reported symptoms and physical exam findings, initial differential includes gastroenteritis, viral illness, covid, flu, electrolyte abnormalities, dehydration, . Labs notable for leukocytosis, no evidence of LIZETT, normal LFTs. Urinalysis notable for trace leukocytes, negative nitrates, 3+ bacteria but also greater than 20 epithelial cells, negative. Given that patient denies urinary symptoms, feel this is likely contamination and not a UTI. Patient reports improvement in symptoms after medications and IV fluids given in the ED. She has been able to tolerate small sips of fluids. Leukocytosis likely due to viral illness. Feel patient is stable for discharge home at this time, will prescribe Zofran for nausea and vomiting. Advised patient to ensure adequate rest, adequate fluid intake with electrolytes. Instructed patient to follow-up with primary care provider. Return precautions discussed at bedside. Patient verbalized understanding of and agreement with plan. Differential Diagnosis Differential Diagnoses: The differential diagnosis associated with the presentation includes As per MDM. Admission/Observation Consideration of admission/observation: Escalation of care including admission/observation considered Patient would have been admitted to the hospital had their work up had any findings where hospital admission was appropriate and their clinical presentation warranted hospital admission. Lab Data [facility] Lab Attestation statement: I reviewed the patient's lab results. As per MDM. 02/23/24 08:57 02/23/24 08:57 Labs: Lab Results 02/23/24 02/23/24 Range/Units 08:57 09:02 WBC 18.4 H (4.8-10.8) X10*3/uL RBC 4.84 (4.20-5.50) X10*6/uL Hgb 14.2 (12.0-16.0) g/dl Hct 42.3 (37.0-47.0) % MCV 87.4 (80.0-98.0) fL MCH 29.3 (27.0-33.0) pg MCHC 33.6 (31.0-35.0) g/dl RDW 12.9 (11.0-16.0) % Plt Count 295 D (160-400) X10*3/uL MPV 10.8 (9.4-12.3) fL Immature Gran % (Auto) 0.4 (0.0-0.4) % Neut % (Auto) 89.2 H (45-73) % Lymph % (Auto) 4.7 L (20-40) % [place] % (Auto) 5.3 (2-11) % Eos % (Auto) 0.2 (0-4) % Baso % (Auto) 0.2 (0-2) % Lymph # (Auto) 0.9 L (1.2-4.9) X10*3/uL [place] # (Auto) 1.0 (0.1-1.2) X10*3/uL Eos # (Auto) 0.0 (0.0-0.4) X10*3/uL Baso # (Auto) 0.0 (0.0-0.2) X10*3/uL Abs Immat Gran (auto) 0.08 H (0.00-0.03) X10*3/uL Absolute Neuts (auto) 16.4 H (2.0-8.3) x10*3/uL Absolute Nucleated RBC 0.000 (0.0-0.012) X10*3/uL Nucleated RBC % (auto) 0.0 (0.0-0.2) /100WBC Sodium 138 (135-145) mmol/L Potassium 4.0 (3.3-5.1) mmol/L Chloride 107 (96-108) mmol/L Carbon Dioxide 21 L (22-29) mmol/L Anion Gap 14 (12-20) BUN 17 H (9-16) mg/dL Creatinine 0.95 (0.5-1.4) mg/dL Estim Creat Clear Calc 72.9 Estimated GFR > 60 Random Glucose 115 (60-115) mg/dL Calcium 9.9 D (8.4-10.2) mg/dL Total Bilirubin 0.4 (0.0-1.0) mg/dL AST 24 (5-31) U/L ALT 18 (0-31) U/L Alkaline Phosphatase 71 (39-117) U/L Total Protein 8.6 H (6.5-8.0) g/dL Albumin 4.7 (3.5-5.0) g/dL Urine Color Dark Yellow Urine Appearance Turbid Urine pH 5.5 (5.0-9.0) Ur Specific [place] >= 1.030 H (1.005-1.025) Urine Protein 30 (1+) H (Neg-Trace) mg/dL Urine Glucose (UA) Negative (Negative) mg/dL Urine Ketones Trace (Negative) mg/dL Urine Blood Negative (Negative) Urine Nitrite Negative (Negative) Ur Leukocyte Esterase Trace H (Negative) Urine RBC 0-2 (0-2) /HPF Urine WBC 0-5 (0-5) /HPF Ur Squamous Epith Cells >20 (0-2) /HPF Calcium Oxalate Crystal Present Urine Bacteria 3+ (None Seen) Hyaline Casts 3-5 (0-2) /LPF Urine Test NEGATIVE (NEGATIVE) External Record Review External record reviewed: Inpatient record, Office record and Outpatient record Prescription Management I considered prescription management with: Other Discharge Plan Discharge Clinical Impression: Nausea vomiting and diarrhea Patient Disposition: Home, Self-Care Instructions: Acute Nausea and Vomiting (ED), Acute Diarrhea (ED) Additional Instructions: You have been evaluated in the emergency department today for nausea, vomiting, and diarrhea. Your evaluation suggests that your symptoms are most likely due to a viral illness which will improve on it's own with rest and fluids. Remember to drink plenty of fluids at home. You are being prescribed ondansetron which you can use as per the prescription instructions for nausea. Please follow up with your primary care provider within two days. Return to the emergency department if you experience worsening or uncontrolled pain, inability to tolerate fluids by mouth, difficulty breathing, fevers 100.4? F or greater, recurrent vomiting, or any other concerning symptoms. Prescriptions: New ondansetron 4 mg tablet,disintegrating 4 mg PO Q8H PRN (Reason: nausea and vomiting) Qty: 10 0RF No Action cyanocobalamin (vitamin B-12) 1,000 mcg tablet 1,000 mcg PO DAILY Qty: 90 1RF Ajovy Syringe 225 mg/1.5 mL syringe 225 mg subcut .COMPLEX 30 Days Qty: 1.5 6RF Rx Instructions: inject 225 mg subcut monthly; methylphenidate HCl 5 mg tablet 5 mg PO BID 30 Days Qty: 60 0RF Rx Instructions: Partial Fill upon patient request. Corlanor 5 mg tablet 5 mg PO BID 90 Days Qty: 180 3RF Rx Instructions: must administer with a meal/food [facility]NE PA APPROVED based from 05/22/23 - 05/21/23 ID # [id number] iqhjqjcdrr-xqatzbhcrlzrd-rtno 50-325-40 mg capsule 1 cap PO Q4H PRN (Reason: pain) 30 Days Qty: 20 2RF mirtazapine 15 mg tablet 7.5 mg PO BEDTIME 30 Days Qty: 15 6RF ProAir RespiClick 90 mcg/actuation aerosol powdr breath activated 2 puff inhalation Q6H PRN (Reason: Shortness Of Breath) dicyclomine 10 mg capsule 10 mg PO QID PRN (Reason: Abdominal Discomfort) cholecalciferol (vitamin D3) 1,250 mcg (50,000 unit) capsule 1,250 mcg PO QWEEK famotidine [Pepcid] 40 mg tablet 40 mg PO BID Qty: 60 4RF dicyclomine 10 mg capsule 10 mg PO QID Qty: 90 1RF Stand Alone Forms: Work/School Release
[2024-02-23] MEDS: 0.9 % Sodium Chloride 1,000 ML 999 ML IV ×2 (10:32→11:54)
[2024-02-23] MEDS: ondansetron HCL 4 MG/2 ML VIAL IVPUSH (10:33)
[2024-02-23] MEDS: diphenhydrAMINE HCL 50 MG/ML VIAL 25 MG IVPUSH (11:47)
[2024-02-23] MEDS: Metoclopramide HCl 10 MG/2 ML VIAL IVPUSH (11:52)
[2024-02-23 11:55] VITALS: BP 90/53; PULSE 80; RESP 18; O2SAT 98
--- NOTE | 2024-02-23 13:15 | PC.NURSE ---
PO trial. pt taking sips of gingerale. reports feeling better than before but does endorse some bubbling in her stomach.
[2024-02-23 13:42] VITALS: BP 98/60; PULSE 70; RESP 8; TEMP 36.9; O2SAT 99
== END 2024-02-23 13:43 | disposition home or self-care (01) ==
PROVIDERS: Emergency Provider Student in an Organized Health Care Education/Training Program; PCP Physician Assistant
DX: R11.2 Nausea with vomiting, unspecified (principal); R19.7 Diarrhea, unspecified; G90.A Postural orthostatic tachycardia syndrome [POTS]
CPT/HCPCS: 36415; 80053; 81001; 81025; 85025; 96361; 96374; 96375; 99284; J1200; J2405; J2765

== ENCOUNTER 2024-02-29 11:31 | Outpatient (AMB) | payer OTHER, SELFPAY ==
--- NOTE | 2024-02-29 11:43 | MHC.OFFVIS ---
Intake Vital Signs 02/29/24 12:08 Height 5 ft 1 in BP 108/62 Blood Pressure Location Rt brachial Position Sitting Pulse 77 Pulse Source Pulse Oximeter Pulse Oximetry (%) 99 Oxygen Delivery Method Room Air Intake Visit Reasons: 4M follow up-CONF Allergies lactose Allergy (Intermediate, Verified 02/23/24 08:45) Stomach Upset Sulfa (Sulfonamide Antibiotics) [SULFA (SULFONAMIDE ANTIBIOTICS)] Allergy (Unknown, Verified 02/23/24 08:45) UNKNOWN epinephrine Allergy (Verified 02/23/24 08:45) Unknown gluten Allergy (Verified 02/23/24 08:45) Diarrhea mushroom Allergy (Verified 02/23/24 08:45) Unknown Medication List - Last Reconciled 02/29/24 by ISAAK Freed albuterol sulfate 90 mcg/actuation (ProAir RespiClick) 2 puffs inhalation Q6H PRN rmenljrpfw-ievkqpoosewos-aqqv 50-325-40 mg 1 cap PO Q4H PRN 30 days cholecalciferol (vitamin D3) 1,250 mcg PO QWEEK cyanocobalamin (vitamin B-12) 1,000 mcg PO DAILY dicyclomine 10 mg PO QID PRN dicyclomine 10 mg PO QID famotidine (Pepcid) 40 mg PO BID fremanezumab-vfrm (Ajovy Syringe) inject 225 mg subcut monthly; 30 days ivabradine (Corlanor) 5 mg PO BID 90 days methylphenidate HCl 5 mg PO BID 30 days mirtazapine 7.5 mg (1/2 x 15 mg) PO BEDTIME 30 days ondansetron 4 mg PO Q8H PRN HPI HPI Comments History of Present Illness Details 29-yr-old female presents for f/u visit. Pt reports her migraine attacks have been manageable. Mild headaches are responsive to Ibuprofen. She feels Fioricet helps quicker than Ubrelvy- but does cause GI upset. Nurtec previously was unhelpful. Recently, she had increased vomiting, shaking, lightheadedness, which triggered a more severe migraine lasting 3 days- needed to go to the ER. Was given IVF, IV zofran, IV reglan, IV Benadryl- which was helpful. She is not vomiting weekly, but once she starts vomiting she goes into cycles of vomiting. The previous diarrhea stopped upon stopping gluten. She has been avoiding many foods- gluten, nuts, berries. The Pepcid only helps short term for the GI s/s. She has an appt coming up w/ a new GI. 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 She is not taking the methylphenidate. 02/23/24 [place] [facility] [place] Lab Results 02/23/24 02/23/24 Range/Units 08:57 09:02 WBC 18.4 H (4.8-10.8) X10*3 /uL RBC 4.84 (4.20-5.50) X10* 6/uL Hgb 14.2 (12.0-16.0) g/dl Hct 42.3 (37.0-47.0) % MCV 87.4 (80.0-98.0) fL MCH 29.3 (27.0-33.0) pg MCHC 33.6 (31.0-35.0) g/dl RDW 12.9 (11.0-16.0) % Plt Count 295 D (160-400) X10*3/ uL MPV 10.8 (9.4-12.3) fL Immature Gran % (A uto) 0.4 (0.0-0.4) % Neut % (Auto) 89.2 H (45-73) % Lymph % (Auto) 4.7 L (20-40) % [place] % (Auto) 5.3 (2-11) % Eos % (Auto) 0.2 (0-4) % Baso % (Auto) 0.2 (0-2) % Lymph # (Auto) 0.9 L (1.2-4.9) X10*3/ uL [place] # (Auto) 1.0 (0.1-1.2) X10*3/ uL Eos # (Auto) 0.0 (0.0-0.4) X10*3/ uL Baso # (Auto) 0.0 (0.0-0.2) X10*3/ uL Abs Immat Gran (au to) 0.08 H (0.00-0.03) X10* 3/uL Absolute Neuts (au to) 16.4 H (2.0-8.3) x10*3/ uL Absolute Nucleated RBC 0.000 (0.0-0.012) X10* 3/uL Nucleated RBC % (a uto) 0.0 (0.0-0.2) /100WB C Sodium 138 (135-145) mmol/L Potassium 4.0 (3.3-5.1) mmol/L Chloride 107 (96-108) mmol/L Carbon Dioxide 21 L (22-29) mmol/L Anion Gap 14 (12-20) BUN 17 H (9-16) mg/dL Creatinine 0.95 (0.5-1.4) mg/dL Estim Creat Clear Calc 72.9 Estimated GFR > 60 Random Glucose 115 (60-115) mg/dL Calcium 9.9 D (8.4-10.2) mg/dL Total Bilirubin 0.4 (0.0-1.0) mg/dL AST 24 (5-31) U/L ALT 18 (0-31) U/L Alkaline Phosphata se 71 (39-117) U/L Total Protein 8.6 H (6.5-8.0) g/dL Albumin 4.7 (3.5-5.0) g/dL Urine Color Dark Yellow Urine Appearance Turbid Urine pH 5.5 (5.0-9.0) Ur Specific Gravit y >= 1.030 H (1.005-1.025) Urine Protein 30 (1+) H (Neg-Trace) mg/d L Urine Glucose (UA) Negative (Negative) mg/dL Urine Ketones Trace (Negative) mg/dL Urine Blood Negative (Negative) Urine Nitrite Negative (Negative) Ur Leukocyte [place]aria ase Trace H (Negative) Urine RBC 0-2 (0-2) /HPF Urine WBC 0-5 (0-5) /HPF Ur Squamous Epith Cells >20 (0-2) /HPF Calcium Oxalate Cr ystal Present Urine Bacteria 3+ (None Seen) Hyaline Casts 3-5 (0-2) /LPF Urine Te st NEGATIVE (NEGATIVE) PFSH Medical History COVID-19 Migraine POTS (postural orthostatic tachycardia syndrome) Surgical History History of esophagogastroduodenoscopy (EGD) History of wisdom tooth extraction Family History Father Unknown family medical history Mother HTN (hypertension) Social History Household Members: Family Housing: House Do you presently have visiting nurse or other home services: No Alcohol intake: never Patient Tobacco Use Status: Never used Tobacco service: No Physical Exam Vital Signs: Last Vital Signs Pulse 77 02/29/24 12:08 BP 108/62 02/29/24 12:08 Pulse Ox 99 02/29/24 12:08 Oxygen Delivery Method Room Air 02/29/24 12:08 Const General: cooperative and no acute distress Orientation/consciousness: patient oriented x3 Resp Effort & Inspection: normal respiratory effort and able to speak in complete sentences Neuro General: patient oriented x3 Cranial nerves: Yes CN's II-XII intact bilaterally Cognition (Neuro): normal cognition Psych Appearance: grossly normal Mental Status: mental status grossly normal Speech and movement: Normal speech and movement present Affect: normal affect Attitude: cooperative Assessment & Plan Assessment & Plan (1) Migraine with aura: Code(s): G43.109 - Migraine with aura, not intractable, without status migrainosus (2) Vomiting: Code(s): R11.10 - Vomiting, unspecified (3) ADHD: Code(s): F90.9 - Attention-deficit hyperactivity disorder, unspecified type Plan General: Review of 02/23/24 ER reports- elevated WBC, Neuts, BUN. Will recheck CBC, CMP. For migraine: Trial Amitriptyline again- 10-20mg qhs- this may help vomiting s/s. Continue Ajovy and mirtazapine for migraine prevention, as she is having good clinical effect. Ubrelvy prn. Fioricet prn- sparingly. Previous tx trilas- Amitriptyline ineffective. Tx contraindications: Triptans- d/t PVCs. Fioricet when taking Corlanor. For sleep issues: HST- previously did not record enough data- consider repeating in f/u. For brain fog in setting of POTs: Continue frequent fluids, salty snacks, and paced activities. Refill methylphenidate as needed. F/u w/ allergy and GI- for ? of Mast cell d/o. Paresthesias: Previous labs- WNL, w/ exception of ESR 32 H. Will recheck ESR. Reviewed BLE EMG/NCS- normal. f/u in 6 months or sooner prn. Orders: Orders Erythrocyte Sedimentation Rate Today D64.9 - Anemia, unspecified, R11.10 - Vomiting, unspecified, R20.2 - Paresthesia of skin CRP High Sensitivity Today D64.9 - Anemia, unspecified, R11.10 - Vomiting, unspecified, R20.2 - Paresthesia of skin Complete Blood Count Auto Diff Today D64.9 - Anemia, unspecified, R11.10 - Vomiting, unspecified, R20.2 - Paresthesia of skin Comprehensive Met. Panel Today D64.9 - Anemia, unspecified, R11.10 - Vomiting, unspecified, R20.2 - Paresthesia of skin Medications: New amitriptyline 10 - 20 mg (1 - 2 x 10 mg) PO BEDTIME 30 days 60 tabs 3RF Coding Level of Care Code Est Pt Level 4 (10544) Diagnoses Migraine with aura G43.109 Vomiting R11.10 ADHD F90.9
[2024-02-29 12:08] VITALS: BP 108/62; PULSE 77; O2SAT 99
== END 2024-02-29 12:11 | disposition home or self-care (01) ==
PROVIDERS: PCP Physician Assistant; Visit Provider Nurse Practitioner Family
DX: G43.109 Migraine with aura, not intractable, without status migrainosus (principal); R11.10 Vomiting, unspecified; F90.9 Attention-deficit hyperactivity disorder, unspecified type
CPT/HCPCS: 99214

== ENCOUNTER → 2024-02-29 11:31 | Outpatient (BNVA) | payer OTHER, SELFPAY | PROVIDERS: PCP Physician Assistant; Visit Provider Nurse Practitioner Family ==

== ENCOUNTER 2024-03-01 17:01 | Outpatient (REF) | payer OTHER, SELFPAY ==
[2024-03-01 17:13] LABS: MANUAL DIFF FLAG NO
[2024-03-01 17:21] LABS: Basophils Absolute Auto 0.1 X10*3/uL (0.0-0.2); Basophils Percent Auto 0.6 % (0-2); Eosinophils Absolute Auto 0.2 X10*3/uL (0.0-0.4); Eosinophils Percent Auto 2.9 % (0-4); Hematocrit 38.7 % (37.0-47.0); Hemoglobin 12.8 g/dl (12.0-16.0); Imm Gran Abs Auto 0.03 X10*3/uL (0.00-0.03); Imm Gran Pct Auto 0.4 % (0.0-0.4); Lymphocytes Absolute Auto 2.2 X10*3/uL (1.2-4.9); Lymphocytes Percent Auto 26.2 % (20-40); Mean Corpuscular HGB Conc 33.1 g/dl (31.0-35.0); Mean Corpuscular Hemoglobin 29.9 pg (27.0-33.0); Mean Corpuscular Volume 90.4 fL (80.0-98.0); Mean Platelet Volume 10.7 fL (9.4-12.3); Monocytes Absolute Auto 0.6 X10*3/uL (0.1-1.2); Monocytes Percent Auto 7.3 % (2-11); Neutrophils Absolute Auto 5.2 x10*3/uL (2.0-8.3); Neutrophils Percent Auto 62.6 % (45-73); Platelet Count 288 X10*3/uL (160-400); Red Blood Count 4.28 X10*6/uL (4.20-5.50); White Blood Count 8.4 X10*3/uL (4.8-10.8)
[2024-03-01 18:18] LABS: Erythrocyte Sedimentation Rate 10 MM/HR (0-20)
[2024-03-01 18:22] LABS: Alanine Aminotransferase 14 U/L (0-31); Albumin Level 4.5 g/dL (3.5-5.0); Alkaline Phosphatase 65 U/L (39-117); Anion Gap 12 (12-20); Aspartate Amino Transferase 16 U/L (5-31); Bilirubin Total 0.4 mg/dL (0.0-1.0); Blood Urea Nitrogen 12 mg/dL (9-16); Carbon Dioxide 29 mmol/L (22-29); Chloride 104 mmol/L (96-108); Estimated Glomerular Filt Rate > 60; Glucose Random 86 mg/dL (60-115); Potassium 3.8 mmol/L (3.3-5.1); Sodium 141 mmol/L (135-145); Total Protein 8.4 g/dL (6.5-8.0)
[2024-03-06 18:13] LABS: CRP High Sensitivity 1.5 mg/L
== END 2024-03-01 17:02 | disposition home or self-care (01) ==
LOC: HO.LAB 17:01
PROVIDERS: PCP Physician Assistant; Visit Provider Nurse Practitioner Family
DX: R11.10 Vomiting, unspecified (principal); D64.9 Anemia, unspecified; R20.2 Paresthesia of skin
CPT/HCPCS: 36415; 80053; 85025; 85652; 86141

== ENCOUNTER 2024-03-04 08:31 | Outpatient (AMB) | payer OTHER, SELFPAY ==
--- NOTE | 2024-03-04 08:36 | MHC.PC.OV ---
Vital Signs 03/04/24 08:45 Height 5 ft 1 in Weight 141 lb BMI 26.6 BP 98/68 Blood Pressure Location Lt brachial Position Sitting Respiration 14 Pulse 91 Pulse Source Pulse Oximeter Temp 98.7 F Temp Source Oral Pulse Oximetry (%) 98 Oxygen Delivery Method Room Air Intake Visit Reasons: Ed follow up Intake Note: Emergency room follow up Supervisor Of Guidance And Testing Required: No Accompanied by: Significant Other Is last menstrual period known: No Allergies lactose Allergy (Intermediate, Verified 03/04/24 08:37) Stomach Upset Sulfa (Sulfonamide Antibiotics) [SULFA (SULFONAMIDE ANTIBIOTICS)] Allergy (Unknown, Verified 03/04/24 08:37) UNKNOWN epinephrine Allergy (Verified 03/04/24 08:37) Unknown gluten Allergy (Verified 03/04/24 08:37) Diarrhea mushroom Allergy (Verified 03/04/24 08:37) Unknown Medication List - Last Reconciled 03/04/24 by Mini Wilson PA-C albuterol sulfate 90 mcg/actuation (ProAir RespiClick) 2 puffs inhalation Q6H PRN amitriptyline 10 - 20 mg (1 - 2 x 10 mg) PO BEDTIME 30 days zukfmjgtuc-naoovslxsawth-guww 50-325-40 mg 1 cap PO Q4H PRN 30 days dicyclomine 10 mg PO QID PRN famotidine (Pepcid) 40 mg PO BID fremanezumab-vfrm (Ajovy Syringe) inject 225 mg subcut monthly; 30 days mirtazapine 7.5 mg (1/2 x 15 mg) PO BEDTIME 30 days ondansetron 4 mg PO Q8H PRN Tobacco use date assessed: 03/04/24 Dental Screening Dental Screen Date: 03/04/24 Did you have a dental visit in the last 12 months?: Yes Did you have a dental problem in the last 6 months where you did not have access to dental care?: No Was dental information given to patient?: Patient has dentist HPI Ed follow up HPI Details Patient is a 29-year-old female with a significant past medical history of migraines, ADHD, anxiety, chronic abdominal pain, pots, multiple allergies, presenting today to establish care/follow-up. She is transferring from [facility] with [facility]. GI: Has ongoing chronic abdominal pain. Has been evaluated by [facility] and routinely follows up. Noted on exam to have mast cells. [place] [facility] [place] was told she did not have true mast cell disorder. She has an appointment arranged with [facility] for a 2nd opinion on 03/13. She was seen in the [facility] last week for increased nausea, vomiting and diarrhea. She states that they told her she likely had the norovirus but she knew that she did not. She says that she did not really feel sick other than the nausea and vomiting. There was no fever, body aches or pain. She has been experiencing this at least monthly since last June 2023. She states that she has developed an exacerbation of her GI symptoms over last summer following allergy and immunology testing. She has since cut out many different foods and states that over the last few months she has only been able to really tolerate white rice and broths. She has to make herself very specific foods. She has an appointment with Allergy and immunology next week. She states that this is frustrating to her and she states that her clinical dietician told her she needed pyloric sphincter dilation. Neuro: Recently saw neurology for her migraines and had her labs rechecked from the ER. White count is back to normal. She states that her neurologist started her on amitriptyline to see if that would help with the nausea and vomiting. She states that it has been helpful. Her migraines are currently well controlled with the Ajovy. CV: Blood pressure today in the office is 114/73. She has been referred previously to [facility] in [place] and has an appointment in July. Pulm: Currently stable and not needing to use albuterol much. Psych: States that the Remeron is helpful for her appetite and anxiety. She does feel that her anxiety is feeling a little bit better since starting the amitriptyline last week as well. She is following with behavioral health and does not feel at this time that she needs any adjustment. She has a supportive partner and denies any SI/HI. Ultrasound Technol: Up-to-date [facility] Medical History (Updated 03/04/24 @ 09:30 by Mini Wilson PA-C) Generalized anxiety disorder Snoring UTI (urinary tract infection) Paresthesia of both lower extremities Chronic abdominal pain COVID-19 Migraine POTS (postural orthostatic tachycardia syndrome) Surgical History History of esophagogastroduodenoscopy (EGD) History of wisdom tooth extraction Family History (Updated 03/04/24 @ 08:56 by Gretchen Mcelroy CMA) Father Unknown family medical history Mental disorder Mother HTN (hypertension) Social History Household Members: Family Housing: House Do you presently have visiting nurse or other home services: No Alcohol intake: never Patient Tobacco Use Status: Never used Tobacco e-Cigarette/Vaping Use: Former Use service: No Current occupational status: employed Current occupation: [employer] Current occupational exposures/hazards: No Cognitive needs: No Hearing needs: No Vision needs: No Female Reproductive History Menstrual control method: progestin IUCD Questionnaire PHQ-9 Over the last 2 weeks, how often have you been bothered by any of the following problems? 1. Little interest or pleasure in doing things: not at all 2. Feeling down, depressed, or hopeless: several days 3. Trouble falling or staying asleep, or sleeping too much: not at all 4. Feeling tired or having little energy: several days 5. Poor appetite or overeating: not at all 6. Feeling bad about yourself - or that you are a failure or have let yourself or your family down: not at all 7. Trouble concentrating on things, such as reading the newspaper or watching television: not at all 8. Moving or speaking so slowly that other people could have noticed. Or the opposite - being so fidgety or restless that you have been moving around a lot more than usual: not at all 9. Thoughts that you would be better off or of hurting yourself in some way: not at all Total score: 2 Depression Screening Interpretation: Negative Depression Screening Done: Yes 63806 - PHQ-9 Billing: Yes Source: Developed by Drs. Iván Payne, Tracy Grady, Rajeev Estrada and colleagues, with an educational thuy from [employer] Thrive Questionnaire Date Thrive assessed: 03/04/24 I am a: Patient What is your living situation today?: I have a steady place to live Within the past 12 months, did the food you bought not last and you didn't have the money to get more?: Never true Within the past 12 months, did you worry whether your food would run out before you got money to buy more?: Never true Do you have trouble paying for medicines?: No Do you have trouble getting transportation to medical appointments?: No Do you have trouble paying your heating and electricity bill?: No Do you have trouble taking care of your child, family member or friend?: No Do you have trouble with day-to-day activities such as bathing, preparing meals, shopping, managing finances, etc.?: No Are you currently unemployed and looking for a job?: No Are you interested in more education?: No Please select the resources that you would like help with: None Currently or been in a relationship where the following occur: no concerns reported THRIVE Score: 0 AUDIT C Alcohol Use Questionnaire (AUDIT-C) 1. How often do you have a drink containing alcohol?: Never 3. How often do you have six or more drinks on one occasion?: Never Total Score: 0 ABIMBOLA-7 AMB Questionnaire ABIMBOLA-7 Date ABIMBOLA - 7 assessed: 03/04/24 Feeling nervous, anxious, or on edge: 1 = Several days Not being able to stop or control worryin = Several days Worrying too much about different things: 1 = Several days Trouble relaxin = Several days Being so restless that it is hard to sit still: 1 = Several days Becoming easily annoyed or irritable: 1 = Several days Feeling afraid as if something awful might happen: 1 = Several days Total ABIMBOLA-7 score (0-4 normal; 5-9 mild; 10-14 moderate; 15-21 severe): 7 Source: Developed by Drs. Iván Payne, Tracy Grady, Rajeev Estrada and colleagues, with an educational thuy from [employer] ABIMBOLA-7 Assessment Billing ABIMBOLA-7 Assessment Tool: ABIMBOLA-7 Assessment 24547 Physical exam (Primary Care) Vital Signs: Last Vital Signs Temp 98.7 F 03/04/24 08:45 Pulse 91 03/04/24 08:45 Resp 14 03/04/24 08:45 BP 98/68 03/04/24 08:45 Pulse Ox 98 03/04/24 08:45 Oxygen Delivery Method Room Air 03/04/24 08:45 BMI result Body Mass Index 26.6 Tobacco/Smoking Status: Tobacco use Status Tobacco use date assessed 03/04/24 03/04/24 08:44 Patient Tobacco Use Status Never used Tobacco 03/04/24 08:44 e-Cigarette/Vaping Use Former Use 03/04/24 08:44 PHQ-9: PHQ-9 Score PHQ-9: Total score 2 03/04/24 08:59 Depression Screening Interpretation: Negative Thrive Assessment: Date of Thrive Assessment Date Thrive assessed 03/04/24 03/04/24 08:58 Currently or been in a relationship where the following occur: no concerns reported Const Orientation/consciousness: patient oriented x3 HENMT Ears: hearing grossly normal bilaterally Neck Thyroid: Thyroid normal Lymphatic: no lymphadenopathy noted Resp Auscultation: clear to auscultation bilaterally Cardio Rate: regular rate Rhythm: regular rhythm Heart sounds: S1 normal heart sound present and S2 normal heart sound present GI Inspection: Yes normal to inspection Palpation (GI): Soft to palpation and Other GI palpation findings present (nontender, no cva tenderness) Auscultation: normoactive bowel sounds Rectal Exam - Female: deferred Skin General skin exam: no rashes or lesions noted Neuro General: patient oriented x3, gait normal and no focal motor deficits Results Reviewed Results Reviewed: cbc, cmp, esr wnl crp pending Assessment and Plan Assessment & Plan (1) Nausea vomiting and diarrhea: Code(s): R11.2 - Nausea with vomiting, unspecified; R19.7 - Diarrhea, unspecified Plan: Currently resolved/improved with the amitriptyline. Continue amitriptyline 10 mg. Has follow-up with GI arranged next week. We will follow up sooner if anything worsens or changes. Last labs reviewed. (2) Chronic abdominal pain: Code(s): R10.9 - Unspecified abdominal pain; G89.29 - Other chronic pain Plan: See above. Abdominal exam today is benign. (3) POTS (postural orthostatic tachycardia syndrome): Code(s): I49.8 - Other specified cardiac arrhythmias Plan: Has follow-up arranged with a past clinic in [place]. (4) Migraine with aura: Code(s): G43.109 - Migraine with aura, not intractable, without status migrainosus Qualifiers: Intractability: not intractable Status migrainosus presence: without status migrainosus Qualified Code(s): G43.109 - Migraine with aura, not intractable, without status migrainosus Plan: Currently controlled. Has routine follow-up with Neurology. (5) Generalized anxiety disorder: Code(s): F41.1 - Generalized anxiety disorder Plan: Following with therapy. Currently on Remeron. Recently started on amitriptyline for the nausea and vomiting however has also felt improvement of anxiety with this. Plan Follow up in 3-4 months. Sooner if needed. Patient understands and agrees with the plan. Coding Level of Care Code Est Pt Level 4 (91207) Diagnoses Nausea vomiting and diarrhea R11.2; R19.7 Chronic abdominal pain R10.9; G89.29 POTS (postural orthostatic tachycardia syndrome) I49.8 Migraine with aura and without status migrainosus, not intractable G43.109 Intractability: not intractable Status migrainosus presence: without status migrainosus Generalized anxiety disorder F41.1 Additional Codes ABIMBOLA-7 Assessment Billing - ABIMBOLA-7 Assessment Tool: ABIMBOLA-7 Assessment 40488 ([id number])
[2024-03-04 08:45] VITALS: BP 98/68; PULSE 91; RESP 14; TEMP 37.1; O2SAT 98; BMI 26.6
== END 2024-03-04 10:18 | disposition home or self-care (01) ==
PROVIDERS: PCP Physician Assistant; Visit Provider Physician Assistant
DX: R11.2 Nausea with vomiting, unspecified (principal); R19.7 Diarrhea, unspecified; R10.9 Unspecified abdominal pain; F41.1 Generalized anxiety disorder; G89.29 Other chronic pain; I49.8 Other specified cardiac arrhythmias; G43.109 Migraine with aura, not intractable, without status migrainosus
CPT/HCPCS: 96127; 99214

== ENCOUNTER 2024-03-20 11:07 | Outpatient (AMB) | payer OTHER, SELFPAY ==
--- NOTE | 2024-03-20 11:11 | MHC.PC.OV ---
Vital Signs 03/20/24 11:20 Height 5 ft 1 in Weight 139 lb 6 oz BMI 26.3 BP 104/72 Blood Pressure Location Rt brachial Position Sitting Respiration 12 Pulse 90 Pulse Source Pulse Oximeter Temp 98.5 F Temp Source Oral Pulse Oximetry (%) 98 Oxygen Delivery Method Room Air Intake Visit Reasons: Possible UTI Symptoms Intake Note: Burning while urinating, cloudy, foul smell. Sxs started yesterday. Has a history of frequent UTI's Parts Classifier Required: No Allergies lactose Allergy (Intermediate, Verified 03/20/24 11:19) Stomach Upset Sulfa (Sulfonamide Antibiotics) [SULFA (SULFONAMIDE ANTIBIOTICS)] Allergy (Unknown, Verified 03/20/24 11:19) UNKNOWN epinephrine Allergy (Verified 03/20/24 11:19) Unknown gluten Allergy (Verified 03/20/24 11:19) Diarrhea mushroom Allergy (Verified 03/20/24 11:19) Unknown Medication List - Last Reconciled 03/20/24 by Mini Wilson PA-C albuterol sulfate 90 mcg/actuation (ProAir RespiClick) 2 puffs inhalation Q6H PRN amitriptyline 10 - 20 mg (1 - 2 x 10 mg) PO BEDTIME 30 days mjqicsbxpl-pdzbutkkeqoao-eluh 50-325-40 mg 1 cap PO Q4H PRN 30 days dicyclomine 10 mg PO QID PRN famotidine (Pepcid) 40 mg PO BID fremanezumab-vfrm (Ajovy Syringe) inject 225 mg subcut monthly; 30 days mirtazapine 7.5 mg (1/2 x 15 mg) PO BEDTIME 30 days nitrofurantoin monohyd/m-cryst 100 mg (Macrobid) 100 mg PO Q12H 7 days ondansetron 4 mg PO Q8H PRN Tobacco use date assessed: 03/04/24 Dental Screening Dental Screen Date: 03/04/24 HPI Possible UTI Symptoms HPI Details Patient is a 29-year-old female with a significant past medical history of asthma, migraines, chronic abdominal pain, nausea and diarrhea, anxiety and pots presents today with complaints of a UTI. uro: She states that she has a history of frequent UTIs and used to follow with [facility] and she called over there to schedule an appointment but they were unable to book her because she she was last seen in 2019. She states that she is prone to frequent UTIs and used to be on prophylactic Macrobid. 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 She states that yesterday the urine became malodorous, burning and some discomfort with increased frequency. Denies any fever, chills or flank pain. No abdominal pain aside from her baseline. She denies any nausea or vomiting. gi: Saw [facility] and is going double endoscopy on 03/13. She states that they believe this related to POTS. She states that her abdominal pain has actually been a little bit better as she has not been eating much. She does not currently have abdominal pain. cv: Blood pressure today in the office is 104/72 with a heart rate of 90. She states that she has not been experiencing as much dizziness. She has an appointment with the [facility] in July. No current chest pain or lightheadedness. She states that the last month she has been feeling a bit better. Psych: states she is doing well. current treatment plan is effective. No SI/HI. PFSH Medical History (Updated 03/20/24 @ 11:29 by Mini Wilson PA-C) Frequent UTI Generalized anxiety disorder Snoring UTI (urinary tract infection) Paresthesia of both lower extremities Chronic abdominal pain COVID-19 Migraine POTS (postural orthostatic tachycardia syndrome) Surgical History History of esophagogastroduodenoscopy (EGD) History of wisdom tooth extraction Family History (Updated 03/04/24 @ 08:56 by Gretchen Mcelroy CMA) Father Unknown family medical history Mental disorder Mother HTN (hypertension) Social History Household Members: Family Housing: House Do you presently have visiting nurse or other home services: No Alcohol intake: never Patient Tobacco Use Status: Never used Tobacco e-Cigarette/Vaping Use: Former Use service: No Current occupational status: employed Current occupation: [employer] Current occupational exposures/hazards: No Cognitive needs: No Hearing needs: No Vision needs: No Questionnaire Thrive Questionnaire Date Thrive assessed: 03/04/24 ABIMBOLA-7 AMB Questionnaire ABIMBOLA-7 Date ABIMBOLA - 7 assessed: 03/04/24 Source: Developed by Drs. Iván Payne, Tracy Grady, Rajeev Estrada and colleagues, with an educational thuy from [employer]. Physical exam (Primary Care) Vital Signs: Last Vital Signs Temp 98.5 F 03/20/24 11:20 Pulse 90 03/20/24 11:20 Resp 12 03/20/24 11:20 BP 104/72 03/20/24 11:20 BMI result Body Mass Index 26.3 Tobacco/Smoking Status: Tobacco use Status Tobacco use date assessed 03/04/24 03/20/24 11:13 Patient Tobacco Use Status Never used Tobacco 03/20/24 11:13 e-Cigarette/Vaping Use Former Use 03/20/24 11:13 Thrive Assessment: Date of Thrive Assessment Date Thrive assessed 03/04/24 03/20/24 11:13 Const Orientation/consciousness: patient oriented x3 HENMT Ears: hearing grossly normal bilaterally Neck Thyroid: Thyroid normal Lymphatic: no lymphadenopathy noted Resp Auscultation: clear to auscultation bilaterally Cardio Rate: regular rate Rhythm: regular rhythm Heart sounds: S1 normal heart sound present and S2 normal heart sound present GI Inspection: Yes normal to inspection Palpation (GI): Soft to palpation and Other GI palpation findings present (nontender, no cva tenderness) Auscultation: normoactive bowel sounds Skin General skin exam: no rashes or lesions noted Neuro General: patient oriented x3, gait normal and no focal motor deficits Results AMB Urinalysis Dipstick UR Leukocytes Moderate Last Edit by Gretchen Mcelroy CMA on 03/20/24 11:36 70 Gretchen Mcelroy 03/20/24 11:36 UR Nitrite Negative Last Edit by Gretchen Mcelroy CMA on 03/20/24 11:36 UR Urobilinogen Normal Last Edit by Gretchen Mcelroy CMA on 03/20/24 11:36 3.5 Gretchen Mcelroy 03/20/24 11:36 UR Protein Trace Last Edit by Gretchen Mcelroy CMA on 03/20/24 11:36 0.15 Gretchen Mcelroy 03/20/24 11:36 UR Ph Last Edit by Gretchen Mcelroy CMA on 03/20/24 11:36 UR Blood Last Edit by Gretchen Mcelroy CMA on 03/20/24 11:36 UR Specific [place] 1.015 Last Edit by Gretchen Mcelroy CMA on 03/20/24 11:36 UR Ketone Negative Last Edit by Gretchen Mcerloy CMA on 03/20/24 11:36 UR Bilirubin Negative Last Edit by Gretchen Mcelroy CMA on 03/20/24 11:36 UR Glucose Negative Last Edit by Gretchen Mcelroy CMA on 03/20/24 11:36 Assessment and Plan Assessment & Plan (1) Frequent UTI: Code(s): N39.0 - Urinary tract infection, site not specified Plan: We will treat with Macrobid. Urine culture ordered. We will follow up pending test results. Advised patient to follow up sooner if anything worsens or changes. I have encouraged hydration. Referral to Urology. (2) Chronic abdominal pain: Code(s): R10.9 - Unspecified abdominal pain; G89.29 - Other chronic pain Plan: Abdominal exam today is benign. She feels happy with her recent visit to [facility]. She will let me know once she has the double endoscopy. (3) Generalized anxiety disorder: Code(s): F41.1 - Generalized anxiety disorder Plan: Continue Remeron and amitriptyline (4) POTS (postural orthostatic tachycardia syndrome): Code(s): I49.8 - Other specified cardiac arrhythmias Plan: Stable. We will be following with [facility] in [place]. Plan Follow up in 3-4 months. Sooner if needed. Patient understands and agrees with the plan. Orders: Orders AMB Urinalysis Dipstick Today R30.0 - Dysuria Urine Culture Today N39.0 - Urinary tract infection, site not specified Referrals Urology Referral N39.0 - Urinary tract infection, site not specified Medications: New nitrofurantoin monohyd/m-cryst 100 mg (Macrobid) must administer with a meal/food 100 mg PO Q12H 7 days 14 caps 0RF Coding Level of Care Code Est Pt Level 4 (23850) Complex EM visit Add On G2211 Diagnoses Frequent UTI N39.0 Chronic abdominal pain R10.9; G89.29 Generalized anxiety disorder F41.1 POTS (postural orthostatic tachycardia syndrome) I49.8
[2024-03-20 11:20] VITALS: BP 104/72; PULSE 90; RESP 12; TEMP 36.9; O2SAT 98; BMI 26.3
== END 2024-03-20 11:44 | disposition home or self-care (01) ==
PROVIDERS: PCP Physician Assistant; Visit Provider Physician Assistant
DX: N39.0 Urinary tract infection, site not specified (principal); R10.9 Unspecified abdominal pain; G89.29 Other chronic pain; F41.1 Generalized anxiety disorder; I49.8 Other specified cardiac arrhythmias; R30.0 Dysuria
CPT/HCPCS: 81002; 99214; G2211

== ENCOUNTER 2024-03-20 11:44 | Outpatient (REF) | payer OTHER, SELFPAY | END 2024-03-20 11:45 | disposition home or self-care (01) | LOC: HO.LAB 11:44 | PROVIDERS: Visit Provider Physician Assistant | DX: N39.0 Urinary tract infection, site not specified (principal) | CPT/HCPCS: 87086; 87088; 87186 ==

== ENCOUNTER 2024-04-16 14:57 | Outpatient (AMB) | payer OTHER, SELFPAY ==
[2024-04-16 15:00] VITALS: BP 130/60; PULSE 82; BMI 26.1
--- NOTE | 2024-04-16 15:00 | A.OFFVIS_ITS ---
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 Accompanied by: Self / Same As Patient Allergies lactose Allergy (Intermediate, Verified 03/20/24 11:19) Stomach Upset Sulfa (Sulfonamide Antibiotics) [SULFA (SULFONAMIDE ANTIBIOTICS)] Allergy (Unknown, Verified 03/20/24 11:19) UNKNOWN epinephrine Allergy (Verified 03/20/24 11:19) Unknown gluten Allergy (Verified 03/20/24 11:19) Diarrhea mushroom Allergy (Verified 03/20/24 11:19) Unknown Medication List - Last Reconciled 04/16/24 by Cristopher Allen MD albuterol sulfate 90 mcg/actuation (ProAir RespiClick) 2 puffs inhalation Q6H PRN amitriptyline 10 - 20 mg (1 - 2 x 10 mg) PO BEDTIME 30 days rsdnmkevoz-psrjdziwybokl-qvzu 50-325-40 mg 1 cap PO Q4H PRN 30 days dicyclomine 10 mg PO QID PRN famotidine (Pepcid) 40 mg PO BID fremanezumab-vfrm (Ajovy Syringe) inject 225 mg subcut monthly; 30 days mirtazapine 7.5 mg (1/2 x 15 mg) PO BEDTIME 30 days ondansetron 4 mg PO Q8H PRN HPI Comments Details: Deanne returns for follow-up. To recall, she carries a diagnosis of POTS syndrome. She states that even as a teenager she was having various symptoms but around age of 19 or so she was diagnosed with POTS syndrome. She had seen several cardiologists in the area in the past and also tried numerous medications including Florinef, midodrine, beta-blockers, but has had numerous side effects. Florinef lead to fluid retention. Midodrine exacerbates her migraine episodes. Beta-blockers make her blood pressure even lower. We also tried Corlanor- some partial relief but it was too expensive and insurance would not approve. Overall, she feels just about the same as before. She can feel dizzy and anticipate the episode happening. No clear-cut syncopal events. Heart races at different times. PFSH Medical History (Updated 03/20/24 @ 11:29 by Mini Wilson PA-C) Frequent UTI Generalized anxiety disorder Snoring UTI (urinary tract infection) Paresthesia of both lower extremities Chronic abdominal pain COVID-19 Migraine POTS (postural orthostatic tachycardia syndrome) Surgical History History of esophagogastroduodenoscopy (EGD) History of wisdom tooth extraction Family History Father Unknown family medical history Mental disorder Mother HTN (hypertension) Social History Household Members: Family Housing: House Do you presently have visiting nurse or other home services: No Alcohol intake: never Patient Tobacco Use Status: Never used Tobacco e-Cigarette/Vaping Use: Former Use service: No Current occupational status: employed Current occupation: [employer] Current occupational exposures/hazards: No Cognitive needs: No Hearing needs: No Vision needs: No Review of Systems Const Denies chills, Denies fatigue, Denies fever(s), Denies frequent falls, Denies weakness, Denies weight gain and Denies weight loss ENT Denies dizziness Card Denies chest pain, Denies leg edema, Denies lightheadedness, Denies palpitations, Denies dyspnea and Denies dyspnea on exertion Resp Denies cough, Denies dyspnea and Denies dyspnea on exertion GI Denies hematochezia Musc Denies abnormal gait, Denies muscle weakness, Denies numbness, Denies radiating pain into limb and Denies tingling Neuro Denies abnormal gait, Denies dizziness, Denies frequent falls, Denies numbness, Denies tingling and Denies weakness Endo Denies fatigue and Denies palpitations Physical Exam Vital Signs: Last Vital Signs Pulse 82 04/16/24 15:00 BP 130/60 04/16/24 15:00 BMI result Body Mass Index 26.1 Const General: comfortable and no acute distress Orientation/consciousness: patient oriented x3 HEENT Other: Unremarkable Head: Yes normal to inspection Neck Neck: Yes normal visual inspection Chest Chest palpation & inspection: normal inspection of the chest Resp Auscultation: clear to auscultation bilaterally Cardio Palpation: normal PMI Heart sounds: S1 normal heart sound present, S2 normal heart sound present, no gallops, no murmurs and no rubs GI Palpation (GI): Soft to palpation Back/Spine/Pelvis Other: unremarkable Skin General skin exam: no rashes or lesions noted Neuro General: patient oriented x3 Extrem General: Yes normal to inspection Psych Mental Status: mental status grossly normal Office Procedures EKG Details: EKG today with sinus rhythm at 82/Min; leftward axis; nonspecific ST-T changes. [id number], Complete Assessment & Plan Assessment & Plan (1) POTS (postural orthostatic tachycardia syndrome): Code(s): I49.8 - Other specified cardiac arrhythmias Category: Medical Plan Tilt-table study reviewed from 2017. There was some degree of vasovagal effect from nitroglycerin with sudden drop in heart rate, dizziness and some drop in blood pressure. During orthostatic blood pressure checks in clinic, there was no significant orthostatic BP drop but the heart rate went from 64-110/min. As discussed above, side effects from various medications. Midodrine giving headaches. Florinef is causing fluid retention. Beta-blockers are lowering the blood pressure which is already low. Corlanor too expensive and insurance would not approve. She already eating a lot of salt. Hence overall, no further options available. She has been referred to POTS specialist in [facility] and waiting for appointment in July. March proceed with that. Coding Level of Care Code Est Pt Level 3 (14351) Diagnoses POTS (postural orthostatic tachycardia syndrome) I49.8 CPT Codes EKG - CPT: 35099-Accworonhhdeklgch, Complete ([id number])
== END 2024-04-16 15:19 | disposition home or self-care (01) ==
PROVIDERS: Visit Provider Internal Medicine
DX: I49.8 Other specified cardiac arrhythmias (principal)
CPT/HCPCS: 93010; 99213

== ENCOUNTER → 2024-04-16 14:57 | Outpatient (BNVA) | payer OTHER, SELFPAY | PROVIDERS: Visit Provider Internal Medicine | DX: G90.A Postural orthostatic tachycardia syndrome [POTS] (principal) | CPT/HCPCS: 93005 ==

== ENCOUNTER 2024-06-05 15:02 | Outpatient (AMB) | payer OTHER, SELFPAY ==
--- NOTE | 2024-06-05 15:11 | MHC.PC.OV ---
Vital Signs 06/05/24 15:17 Height 5 ft 1 in Weight 138 lb 4 oz BMI 26.1 BP 88/60 L Blood Pressure Location Lt brachial Position Sitting Respiration 12 Pulse 92 Pulse Source Pulse Oximeter Pulse Oximetry (%) 99 Intake Visit Reasons: gi sx, chronic conditions Intake Note: Follow up Is last menstrual period known: No Allergies lactose Allergy (Intermediate, Verified 06/05/24 15:16) Stomach Upset Sulfa (Sulfonamide Antibiotics) [SULFA (SULFONAMIDE ANTIBIOTICS)] Allergy (Unknown, Verified 06/05/24 15:16) UNKNOWN epinephrine Allergy (Verified 06/05/24 15:16) Unknown gluten Allergy (Verified 06/05/24 15:16) Diarrhea mushroom Allergy (Verified 06/05/24 15:16) Unknown Medication List - Last Reconciled 06/05/24 by Mini Wilson PA-C albuterol sulfate 90 mcg/actuation (ProAir RespiClick) 2 puffs inhalation Q6H PRN amitriptyline 10 - 20 mg (1 - 2 x 10 mg) PO BEDTIME 30 days qqjidafyvf-isqusfgtkuval-xsxk 50-325-40 mg 1 cap PO Q4H PRN 30 days dicyclomine 10 mg PO QID PRN famotidine (Pepcid) 40 mg PO BID fremanezumab-vfrm (Ajovy Syringe) inject 225 mg subcut monthly; 30 days mirtazapine 7.5 mg (1/2 x 15 mg) PO BEDTIME 30 days ondansetron 4 mg PO Q8H PRN Tobacco use date assessed: 06/05/24 Dental Screening Dental Screen Date: 03/04/24 HPI gi sx, chronic conditions HPI Details Patient is a 29-year-old female with a significant past medical history of asthma, migraines, chronic abdominal pain, nausea and diarrhea, anxiety and pots presents today with complaints of a UTI. uro: She is following with Urology and doing well. She has on a preventative with Keflex for UTIs. gi: Saw [facility] and is going double endoscopy on 03/13. She states that they believe this related to POTS or abdominal migraines. She states that her abdominal pain has actually been a lot better since being on amitriptyline. Neuro: States that her migraines are doing well. cv: Blood pressure today in the office is 88/60. with a heart rate of 90. She states that she has not been experiencing as much dizziness. She has an appointment with the [facility] in July. No current chest pain or lightheadedness. She states that the last month she has been feeling a bit better. Psych: states she is doing well. current treatment plan is effective. No SI/HI. [facility] Medical History (Updated 03/20/24 @ 11:29 by Mini Wilson PA-C) Frequent UTI Generalized anxiety disorder Snoring UTI (urinary tract infection) Paresthesia of both lower extremities Chronic abdominal pain COVID-19 Migraine POTS (postural orthostatic tachycardia syndrome) Surgical History History of esophagogastroduodenoscopy (EGD) History of wisdom tooth extraction Family History Father Unknown family medical history Mental disorder Mother HTN (hypertension) Social History Household Members: Family Housing: House Do you presently have visiting nurse or other home services: No Alcohol intake: never Patient Tobacco Use Status: Never used Tobacco e-Cigarette/Vaping Use: Former Use service: No Current occupational status: employed Current occupation: [employer] Current occupational exposures/hazards: No Cognitive needs: No Hearing needs: No Vision needs: No Questionnaire Thrive Questionnaire Date Thrive assessed: 03/04/24 ABIMBOLA-7 AMB Questionnaire ABIMBOLA-7 Date ABIMBOLA - 7 assessed: 03/04/24 Source: Developed by Drs. Iván Payne, Tracy Grady, Rajeev Estrada and colleagues, with an educational thuy from [employer]. Physical exam (Primary Care) Vital Signs: Last Vital Signs Pulse 92 06/05/24 15:17 Resp 12 06/05/24 15:17 BP 88/60 L 06/05/24 15:17 Pulse Ox 99 06/05/24 15:17 BMI result Body Mass Index 26.1 Tobacco/Smoking Status: Tobacco use Status Tobacco use date assessed 06/05/24 06/05/24 15:20 Patient Tobacco Use Status Never used Tobacco 06/05/24 15:13 e-Cigarette/Vaping Use Former Use 07/10/24 15:13 Thrive Assessment: Date of Thrive Assessment Date Thrive assessed 03/04/24 06/05/24 15:13 Const Orientation/consciousness: patient oriented x3 HENMT Ears: hearing grossly normal bilaterally Neck Thyroid: Thyroid normal Lymphatic: no lymphadenopathy noted Resp Auscultation: clear to auscultation bilaterally Cardio Rate: regular rate Rhythm: regular rhythm Heart sounds: S1 normal heart sound present and S2 normal heart sound present GI Inspection: Yes normal to inspection Palpation (GI): Soft to palpation and Other GI palpation findings present (nontender, no cva tenderness) Auscultation: normoactive bowel sounds Rectal Exam - Female: deferred Skin General skin exam: no rashes or lesions noted Neuro General: patient oriented x3, gait normal and no focal motor deficits Assessment and Plan Assessment & Plan (1) Frequent UTI: Code(s): N39.0 - Urinary tract infection, site not specified Plan: Currently well-controlled and stable with Keflex (2) Chronic abdominal pain: Code(s): R10.9 - Unspecified abdominal pain; G89.29 - Other chronic pain Plan: Increase amitriptyline to see if that gives her better symptom improvement. (3) POTS (postural orthostatic tachycardia syndrome): Code(s): I49.8 - Other specified cardiac arrhythmias Plan: Has an appointment with the [facility] in July. Plan Needs titers for school. Orders: Orders Varicella IgG Antibody Today Z28.39 - Other underimmunization status T Spot TB Today Z28.39 - Other underimmunization status Medications: New amitriptyline 25 mg PO BEDTIME 90 tabs 3RF Discontinued amitriptyline Discontinued Reason: Doctor's Order 10 - 20 mg (1 - 2 x 10 mg) PO BEDTIME 30 days 60 tabs 6RF Coding Level of Care Code Est Pt Level 4 (32659) Complex EM visit Add On G2211 Diagnoses Frequent UTI N39.0 Chronic abdominal pain R10.9; G89.29 POTS (postural orthostatic tachycardia syndrome) I49.8
[2024-06-05 15:17] VITALS: BP 88/60; PULSE 92; RESP 12; O2SAT 99; BMI 26.1
== END 2024-06-05 15:46 | disposition home or self-care (01) ==
PROVIDERS: PCP Physician Assistant; Visit Provider Physician Assistant
DX: N39.0 Urinary tract infection, site not specified (principal); R10.9 Unspecified abdominal pain; G89.29 Other chronic pain; I49.8 Other specified cardiac arrhythmias
CPT/HCPCS: 99214

== ENCOUNTER 2024-06-05 15:48 | Outpatient (REF) | payer OTHER, SELFPAY ==
[2024-06-08 00:17] LABS: TS Negative Control Passed; TS Panel A 0; TS Panel B 2; TS Positive Control Passed; TSpotTB Negative (Negative)
== END 2024-06-05 15:49 | disposition home or self-care (01) ==
LOC: HO.WFDLDS 15:48
PROVIDERS: Visit Provider Physician Assistant
DX: Z11.1 Encounter for screening for respiratory tuberculosis (principal); Z28.39 Other underimmunization status; Z11.59 Encounter for screening for other viral diseases
CPT/HCPCS: 36415; 86481; 86787

== ENCOUNTER 2024-06-12 05:10 | Emergency (ER) | payer OTHER, SELFPAY ==
--- NOTE | ~2024-06-12 | US_ITS ---
EXAMINATION: US ABDOMEN LIMITED CLINICAL INFORMATION: Right upper quadrant pain. COMPARISON: Abdomen ultrasound from 01/17/2022 TECHNIQUE: Real-time imaging of the right upper quadrant abdominal viscera. FINDINGS: PANCREAS: The pancreatic tail is obscured by bowel gas. The visualized pancreas is normal. No pancreatic ductal dilatation. LIVER: Normal. GALLBLADDER: Normal. The gallbladder is physiologically distended without evidence of stones, sludge, polyps, wall thickening or pericholecystic fluid. COMMON BILE DUCT: Normal in caliber measuring 0.3 cm in diameter. RIGHT KIDNEY: Normal. No hydronephrosis. No renal calculi or focal parenchymal lesions. The kidney measures 10.8 cm in maximum dimension. FREE FLUID: None. US/US abdomen limited IMPRESSION: Normal ultrasound examination of the right upper quadrant.
[2024-06-12 05:12] VITALS: BP 109/84; PULSE 98; RESP 18; TEMP 36.6; O2SAT 99; BMI 25.7
[2024-06-12 05:29] LABS: Basophils Percent Auto 0.2 % (0-2); Eosinophils Absolute Auto 0.2 X10*3/uL (0.0-0.4); Eosinophils Percent Auto 2.3 % (0-4); Hematocrit 40.7 % (37.0-47.0); Hemoglobin 13.9 g/dl (12.0-16.0); Imm Gran Abs Auto 0.04 X10*3/uL (0.00-0.03); Imm Gran Pct Auto 0.4 % (0.0-0.4); Lymphocytes Absolute Auto 1.5 X10*3/uL (1.2-4.9); Lymphocytes Percent Auto 14.2 % (20-40); MANUAL DIFF FLAG NO; Mean Corpuscular HGB Conc 34.2 g/dl (31.0-35.0); Mean Corpuscular Hemoglobin 30.5 pg (27.0-33.0); Mean Corpuscular Volume 89.3 fL (80.0-98.0); Monocytes Absolute Auto 0.6 X10*3/uL (0.1-1.2); Monocytes Percent Auto 5.5 % (2-11); Neutrophils Absolute Auto 7.9 x10*3/uL (2.0-8.3); Neutrophils Percent Auto 77.4 % (45-73); Platelet Count 264 X10*3/uL (160-400); Red Blood Count 4.56 X10*6/uL (4.20-5.50); Red Cell Distribution Width 12.2 % (11.0-16.0); White Blood Count 10.2 X10*3/uL (4.8-10.8)
--- NOTE | 2024-06-12 05:36 | ED.NAVMDI ---
HPI - Nausea/Vomiting/Diarrhea General Chief complaint: Nausea/Vomiting/Diarrhea Stated complaint: vomiting Time Seen by Provider: 06/12/24 05:25 Source: patient and old records reviewed Mode of arrival: ambulatory Limitations: no limitations History of Present Illness ED Provider: SELAM ALAN Narrative: 29 yo female with PMH of recurrent vomiting, diarrhea, anemia, abdominal pain - just had endoscopy and colonoscopy 1 week ago - polyps sent out, normal endoscopy. She is managed with zofran and pepcid. Reports 24 hours of symptoms. No travel or antibiotic use. Hx of similar bouts in the past. Did vomit some brown today. After pepto bismol had a black stool. MD elicited complaint: nausea, vomiting, diarrhea and abdominal pain Pertinent past history: cyclical vomiting Onset (ago): hour(s) (24) Description of vomiting: food contents, watery and coffee grounds Description of diarrhea: watery Associated nausea: Yes Associated abdominal pain: Yes Location of pain: epigastric Radiation: diffuse Pain consistency: constant Severity: moderate Quality: aching and constant Exacerbating factors: eating Relieving factors: none Context: other (hx of similar bouts) Associated symptoms: loss of appetite, malaise, nausea/vomiting and weakness Treatment prior to arrival: other OTC medicine Related Data Home Medications ?Medication ?Instructions ?Recorded ?Confirmed albuterol sulfate 90 mcg/actuation 2 puff inhalation Q6H PRN 01/17/22 06/05/24 breath activated powder inhaler Shortness Of Breath (ProAir RespiClick) dicyclomine 10 mg capsule 10 mg PO QID PRN Abdominal 04/18/23 06/05/24 Discomfort Previous Rx's ?Medication ?Instructions ?Recorded famotidine 40 mg tablet (Pepcid) 40 mg PO BID #60 tabs 10/13/23 mirtazapine 15 mg tablet 7.5 mg (1/2 x 15 mg) PO BEDTIME 30 01/04/24 days #15 tabs ondansetron 4 mg disintegrating 4 mg PO Q8H PRN nausea and 02/23/24 tablet vomiting #10 tabs fremanezumab-vfrm 225 mg/1.5 mL 225 mg (1.5 mL) subcut .COMPLEX 30 03/18/24 subcutaneous syringe ([employer] days #1.5 mL Syringe) xrvfikatia-ootznshuhwjzx-xerzlezc 1 cap PO Q4H PRN pain 30 days #20 05/21/24 50 mg-325 mg-40 mg capsule caps amitriptyline 25 mg tablet 25 mg PO BEDTIME #90 tabs 06/05/24 metoclopramide HCl 10 mg tablet 10 mg PO Q6H PRN nausea and 06/12/24 (Reglan) vomiting #30 tabs Allergies Allergy/AdvReac Type Severity Reaction Status Date / Time lactose Allergy Intermediate Stomach Verified 06/12/24 05:12 Upset Sulfa (Sulfonamide Allergy Unknown UNKNOWN Verified 06/12/24 05:12 Antibiotics) [SULFA (SULFONAMIDE ANTIBIOTICS)] epinephrine Allergy Unknown Verified 06/12/24 05:12 gluten Allergy Diarrhea Verified 06/12/24 05:12 mushroom Allergy Unknown Verified 06/12/24 05:12 Review of Systems Review of Systems: Constitutional : No Weight loss, No Fever, No Chills ENT/Mouth : No sore throat, No Rhinorrhea Eyes: No Swelling, No Redness Cardiovascular : No Chest Pain, No SOB, NoEdema Respiratory : No Cough, No Sputum, No Wheezing Gastrointestinal : Positive Nausea, Positive Vomiting, positive Diarrhea, positive abdominal Pain, No Hematochezia, No Melena Genitourinary : No Dysuria, No Urinary Frequency, No Hematuria, No Urgency Musculoskeletal : No joint pain, No Myalgias, No Joint Swelling Skin : No Skin Lesions, No rash Neuro : No Weakness, No Numbness, No Dizziness, No Headache Psych : No Anxiety/Panic, No Depression All other systems reviewed and are negative. Gastrointestinal: Gastrointestinal: Reports nausea PMFSH Past Medical History Attestation statement: The following information was validated with the patient. Source: old records reviewed Medical History Frequent UTI Generalized anxiety disorder Snoring UTI (urinary tract infection) Paresthesia of both lower extremities Chronic abdominal pain COVID-19 Migraine POTS (postural orthostatic tachycardia syndrome) Surgical History History of esophagogastroduodenoscopy (EGD) History of wisdom tooth extraction Family History Family History Father Unknown family medical history Mental disorder Mother HTN (hypertension) Social History Social History (Reviewed 06/12/24 @ 05:[address] Household Members: Family Housing: House Do you presently have visiting nurse or other home services: No Alcohol intake: never Patient Tobacco Use Status: Never used Tobacco Smoked in Last 30 Days: No e-Cigarette/Vaping Use: Former Use Use of substances other than those prescribed or required for medical reasons: No Advance Directives: No Advance Directives Information Provided: Yes Do you have a plan to hurt others: No Plan service: No Current occupational status: employed Current occupation: [employer] Current occupational exposures/hazards: No Cognitive needs: No Hearing needs: No Vision needs: No Physical Exam Vital Signs: Vital Signs: Last Vital Signs Temp 97.8 F 06/12/24 05:12 Pulse 98 06/12/24 05:12 Resp 18 06/12/24 05:12 BP 109/84 06/12/24 05:12 Pulse Ox 99 06/12/24 05:12 O2 Del Method Room Air 06/12/24 05:12 BMI result Body Mass Index 25.7 Appearance: Alert. Oriented X3. active vomiting mild acute distress. Eyes: Pupils equal, round and reactive to light. ENT: Pharynx mild dry MM Neck: Normal inspection. Neck supple. CVS: Normal heart rate and rhythm. Pulses normal. Respiratory: No respiratory distress. Breath sounds normal. Abdomen: Soft and moderate epigastric ttp no rebound or guarding Rectal: brown stool noted Skin: Skin warm and dry. pale skin color. Normal skin turgor. Extremities: No lower extremity edema. No calf ttp Neuro: Oriented X 3. No motor deficit. No sensory deficit. Course Course Course Narrative: signed out Dr. Jean Medications Administered Discontinued Medications Generic Name Dose Route Start Last Admin Trade Name Freq PRN Reason Stop Dose Admin Diphenhydramine HCl 25 mg 06/12/24 05:18 06/12/24 05:50 Diphenhydramine Hcl 50 Mg/Ml Vial IVPUSH 06/12/24 05:19 25 mg ONCE ONE Administration Sodium Chloride 1,000 mls @ 999 mls/hr 06/12/24 05:18 06/12/24 05:50 Ns IV 06/12/24 06:18 999 mls/hr .Q1H1M ONE Administration Metoclopramide HCl 10 mg 06/12/24 05:18 06/12/24 05:50 Metoclopramide Hcl 10 Mg/2 Ml Vial IVPUSH 06/12/24 05:19 10 mg ONCE ONE Administration Pantoprazole Sodium 40 mg 06/12/24 05:44 06/12/24 05:50 Pantoprazole Sodium 40 Mg/10 Ml Vial IVPUSH 06/12/24 05:45 40 mg ONCE ONE Administration Medical Decision Making Medical Decision Making [facility] Narrative: 29 yo female with PMH of recurrent vomiting, diarrhea, anemia, abdominal pain at this time presents with coffee ground emesis - just had endoscopy and colonoscpy no colitis will need basic labs, IVF, reglan and protonix suspect gastritis and MW tear. No risk factors for UGIB. Not on thinners. US for GB ordered as well Differential Diagnosis Differential Diagnoses: The differential diagnosis associated with the presentation includes gastritis, UGIB, biliary colic cyclical vomiting Admission/Observation Consideration of admission/observation: Escalation of care including admission/observation considered Lab Data [facility] Lab Attestation statement: I reviewed the patient's lab results. 06/12/24 05:24 06/12/24 05:24 Labs: Lab Results 06/12/24 06/12/24 Range/Units 05:24 05:57 WBC 10.2 (4.8-10.8) X10*3/uL RBC 4.56 (4.20-5.50) X10*6/uL Hgb 13.9 (12.0-16.0) g/dl Hct 40.7 (37.0-47.0) % MCV 89.3 (80.0-98.0) fL MCH 30.5 (27.0-33.0) pg MCHC 34.2 (31.0-35.0) g/dl RDW 12.2 (11.0-16.0) % Plt Count 264 (160-400) X10*3/uL MPV 11.0 (9.4-12.3) fL Immature Gran % (Auto) 0.4 (0.0-0.4) % Neut % (Auto) 77.4 H (45-73) % Lymph % (Auto) 14.2 L (20-40) % [place] % (Auto) 5.5 (2-11) % Eos % (Auto) 2.3 (0-4) % Baso % (Auto) 0.2 (0-2) % Lymph # (Auto) 1.5 (1.2-4.9) X10*3/uL [place] # (Auto) 0.6 (0.1-1.2) X10*3/uL Eos # (Auto) 0.2 (0.0-0.4) X10*3/uL Baso # (Auto) 0.0 (0.0-0.2) X10*3/uL Abs Immat Gran (auto) 0.04 H (0.00-0.03) X10*3/uL Absolute Neuts (auto) 7.9 (2.0-8.3) x10*3/uL Absolute Nucleated RBC 0.000 (0.0-0.012) X10*3/uL Nucleated RBC % (auto) 0.0 (0.0-0.2) /100WBC Sodium 138 (135-145) mmol/L Potassium 3.7 (3.3-5.1) mmol/L Chloride 109 H (96-108) mmol/L Carbon Dioxide 19 L (22-29) mmol/L Anion Gap 14 (12-20) BUN 15 (9-16) mg/dL Creatinine 0.86 (0.5-1.4) mg/dL Estim Creat Clear Calc 79.8 Estimated GFR > 60 Random Glucose 105 (60-115) mg/dL Calcium 9.6 (8.4-10.2) mg/dL Total Bilirubin 0.5 (0.0-1.0) mg/dL AST 21 (5-31) U/L ALT 15 (0-31) U/L Alkaline Phosphatase 61 (39-117) U/L Total Protein 8.0 (6.5-8.0) g/dL Albumin 4.4 (3.5-5.0) g/dL Lipase 17 (8-78) U/L Beta HCG, Quant < 2 mIU/mL Stool Occult Blood NEGATIVE (NEGATIVE) Independent Interpretation I performed an independent interpretation of an: Ultrasound (no stones) Independent Historian Clinical information obtained from an independent historian. History obtained from or confirmed by: Spouse External Record Review External record reviewed: Inpatient record Prescription Management I considered prescription management with: Other Discharge Plan Discharge Clinical Impression: Nausea vomiting and diarrhea Gastritis Qualifiers: Gastritis type: unspecified gastritis Chronicity: acute Gastritis bleeding: with bleeding Qualified Code(s): K29.01 - Acute gastritis with bleeding Patient Disposition: Still a Patient Instructions: Acute Nausea and Vomiting (ED), Acute Diarrhea (ED), Acute Abdominal Pain (ED) Additional Instructions: stool negative for blood US reassuring blood work reassuring avoid all NSAIDs, tylenol is okay return for worsening pain, bleeding, inability to eat or drink or any other concerns follow up with your GI doctor Prescriptions: New metoclopramide HCl [Reglan] 10 mg tablet 10 mg PO Q6H PRN (Reason: nausea and vomiting) Qty: 30 0RF No Action mirtazapine 15 mg tablet 7.5 mg PO BEDTIME 30 Days Qty: 15 6RF Ajovy Syringe 225 mg/1.5 mL syringe 225 mg subcut .COMPLEX 30 Days Qty: 1.5 6RF Rx Instructions: inject 225 mg subcut monthly; fkwetsgvlo-cxxxwufuglphy-mhoq 50-325-40 mg capsule 1 cap PO Q4H PRN (Reason: pain) 30 Days Qty: 20 2RF ProAir RespiClick 90 mcg/actuation aerosol powdr breath activated 2 puff inhalation Q6H PRN (Reason: Shortness Of Breath) dicyclomine 10 mg capsule 10 mg PO QID PRN (Reason: Abdominal Discomfort) ondansetron 4 mg tablet,disintegrating 4 mg PO Q8H PRN (Reason: nausea and vomiting) Qty: 10 0RF amitriptyline 25 mg tablet 25 mg PO BEDTIME Qty: 90 3RF famotidine [Pepcid] 40 mg tablet 40 mg PO BID Qty: 60 4RF Stand Alone Forms: Work/School Release Print Language: Ukrainian
[2024-06-12 05:43] LABS: Alanine Aminotransferase 15 U/L (0-31); Albumin Level 4.4 g/dL (3.5-5.0); Alkaline Phosphatase 61 U/L (39-117); Anion Gap 14 (12-20); Aspartate Amino Transferase 21 U/L (5-31); Bilirubin Total 0.5 mg/dL (0.0-1.0); Blood Urea Nitrogen 15 mg/dL (9-16); Calcium 9.6 mg/dL (8.4-10.2); Carbon Dioxide 19 mmol/L (22-29); Chloride 109 mmol/L (96-108); Creatinine Clr Calc Pharmacy 79.8; Estimated Glomerular Filt Rate > 60; Glucose Random 105 mg/dL (60-115); Lipase 17 U/L (8-78); Potassium 3.7 mmol/L (3.3-5.1); Sodium 138 mmol/L (135-145)
[2024-06-12 05:49] LABS: HCG Quantitative < 2 mIU/mL
[2024-06-12] MEDS: Metoclopramide HCl 10 MG/2 ML VIAL IVPUSH (05:50)
[2024-06-12] MEDS: Pantoprazole Sodium 40 MG/10 ML VIAL IVPUSH (05:50)
[2024-06-12] MEDS: diphenhydrAMINE HCL 50 MG/ML VIAL 25 MG IVPUSH (05:50)
[2024-06-12] MEDS: 0.9 % Sodium Chloride 1,000 ML 999 ML IV ×2 (05:50→06:57)
[2024-06-12 06:05] LABS: OBS Int Ctl Valid YES; OBS1 NEGATIVE (NEGATIVE)
[2024-06-12] MEDS: Morphine Sulfate 4 MG/ML CARTRIDGE IVPUSH (06:56)
[2024-06-12 07:13] VITALS: BP 84/52; PULSE 91; RESP 16; TEMP 36.9; O2SAT 97
[2024-06-12 07:55] VITALS: RESP 18
--- NOTE | 2024-06-12 07:57 | PC.NURSE ---
Resumed care of pt at 0700. Pt resting in bed quietly with significant other at bedside, a/ox4, respirations even and unlabored, lung sounds cta bilaterally, abdomen soft, tender to palpation. Pt denies n/v/cp/sob at this time. Call kennedy within reach, all needs met at this time, awaiting ultrasound report.
[2024-06-12 08:34] LABS: C Reactive Protein 0.36 mg/dL (< or = 0.50)
[2024-06-12 08:41] VITALS: BP 88/54; PULSE 84; RESP 18; TEMP 36.7; O2SAT 98
[2024-06-12 08:45] VITALS: BP 88/54; PULSE 84; RESP 18; TEMP 36.7; O2SAT 98
== END 2024-06-12 08:46 | disposition home or self-care (01) ==
PROVIDERS: Emergency Medicine; Emergency Provider Emergency Medicine; PCP Physician Assistant
DX: K29.01 Acute gastritis with bleeding (principal); R11.2 Nausea with vomiting, unspecified; R19.7 Diarrhea, unspecified; R10.11 Right upper quadrant pain; I49.8 Other specified cardiac arrhythmias; D64.9 Anemia, unspecified; Z87.440 Personal history of urinary (tract) infections
CPT/HCPCS: 36415; 76705; 80053; 82272; 83690; 84702; 85025; 86140; 96361; 96374; 96375; 99284; J1200; J2270; J2470; J2765

== ENCOUNTER 2024-06-19 14:21 | Outpatient (AMB) | payer OTHER, SELFPAY ==
--- NOTE | 2024-06-19 14:35 | MHC.PC.OV ---
Vital Signs 06/19/24 14:44 Height 5 ft Weight 137 lb BMI 26.8 BP 90/64 Blood Pressure Location Rt brachial Position Sitting Respiration 12 Pulse 86 Pulse Source Pulse Oximeter Pulse Oximetry (%) 99 Oxygen Delivery Method Room Air Intake Visit Reasons: ED Follow up Intake Note: Emergency room follow up. 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 Administrative Medical Director Required: No Allergies lactose Allergy (Intermediate, Verified 06/19/24 14:42) Stomach Upset Sulfa (Sulfonamide Antibiotics) [SULFA (SULFONAMIDE ANTIBIOTICS)] Allergy (Unknown, Verified 06/19/24 14:42) UNKNOWN epinephrine Allergy (Verified 06/19/24 14:42) Unknown gluten Allergy (Verified 06/19/24 14:42) Diarrhea mushroom Allergy (Verified 06/19/24 14:42) Unknown Medication List - Last Reconciled 06/19/24 by Mini Wilson PA-C albuterol sulfate 90 mcg/actuation (ProAir RespiClick) 2 puffs inhalation Q6H PRN amitriptyline 25 mg PO BEDTIME thrhhsnylr-lnsrzntkymjyy-nwpt 50-325-40 mg 1 cap PO Q4H PRN 30 days dicyclomine 10 mg PO QID PRN famotidine (Pepcid) 40 mg PO BID fremanezumab-vfrm (Ajovy Syringe) inject 225 mg subcut monthly; 30 days metoclopramide HCl (Reglan) 10 mg PO Q6H PRN mirtazapine 7.5 mg (1/2 x 15 mg) PO BEDTIME 30 days ondansetron 4 mg PO Q8H PRN Tobacco use date assessed: 06/05/24 Dental Screening Dental Screen Date: 03/04/24 HPI ED Follow up HPI Details Patient is a 29-year-old female who presents today for a follow up. She has a significant past medical history of anxiety, POTS, cyclical nausea, vomiting and diarrhea, chronic abdominal pain, migraines and multiple food allergens. She was recently in the ER on 06/12 with complaints of nausea, vomiting upper abdominal pain. She had a normal ultrasound and labs. She saw GI yesterday and states that she had a gastric emptying study ordered. She states that she has had 3 exacerbations in 2 weeks of n/v/d. She gets intense pain, gurgling and nausea and then usually ends up with vomiting and diarrhea. She sometimes has to go to the ER for this. She uses zofran and reglan. She states GI does not want her to develop tardive dyskinesia so does not want her to continue with the Reglan. She states that she feels like the Zofran is ineffective. When she starts to feel the gurgling in her stomach and nausea she gets worried that she is going to start with the vomiting and diarrhea. She is worried that the recommendation for riboflavin and Co Q10 will not be strong enough. She states that she is frustrated because she does not know what is causing this. She follows a very bland and specific diet. She states that whenever she sees Allergy they tell her that this is GI related and structure related and then when she sees GI they tell her it is neuro related and when she sees neuro they tell her to get her pots under control. She states it is just all over the place and she is frustrated because she does not like feeling sick. 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 When her blood pressure is on the lower end she also feels sick and that stresses her out. She has not seen the [facility] until July. [facility], [facility] Medical History Frequent UTI Generalized anxiety disorder Snoring UTI (urinary tract infection) Paresthesia of both lower extremities Chronic abdominal pain COVID-19 Migraine POTS (postural orthostatic tachycardia syndrome) Surgical History History of esophagogastroduodenoscopy (EGD) History of wisdom tooth extraction Family History Father Unknown family medical history Mental disorder Mother HTN (hypertension) Social History Household Members: Family Housing: House Do you presently have visiting nurse or other home services: No Alcohol intake: never Patient Tobacco Use Status: Never used Tobacco e-Cigarette/Vaping Use: Former Use service: No Current occupational status: employed Current occupation: [employer] Current occupational exposures/hazards: No Cognitive needs: No Hearing needs: No Vision needs: No Questionnaire Thrive Questionnaire Date Thrive assessed: 03/04/24 ABIMBOLA-7 AMB Questionnaire ABIMBOLA-7 Date ABIMBOLA - 7 assessed: 03/04/24 Source: Developed by Drs. Iván Payne, Tracy Grady, Rajeev Estrada and colleagues, with an educational thuy from [employer] ( [employer] ). Physical exam (Primary Care) Vital Signs: Last Vital Signs Pulse 86 06/19/24 14:44 Resp 12 06/19/24 14:44 BP 90/64 06/19/24 14:44 Pulse Ox 99 06/19/24 14:44 Oxygen Delivery Method Room Air 06/19/24 14:44 BMI result Body Mass Index 26.8 Tobacco/Smoking Status: Tobacco use Status Tobacco use date assessed 06/05/24 06/19/24 14:36 Patient Tobacco Use Status Never used Tobacco 06/19/24 14:36 e-Cigarette/Vaping Use Former Use 06/19/24 14:36 Thrive Assessment: Date of Thrive Assessment Date Thrive assessed 03/04/24 06/19/24 14:36 Const Orientation/consciousness: patient oriented x3 HENMT Ears: hearing grossly normal bilaterally Neck Thyroid: Thyroid normal Lymphatic: no lymphadenopathy noted Resp Auscultation: clear to auscultation bilaterally Cardio Rate: regular rate Rhythm: regular rhythm Heart sounds: S1 normal heart sound present and S2 normal heart sound present GI Inspection: Yes normal to inspection Palpation (GI): Soft to palpation and Other GI palpation findings present (nontender, no cva tenderness) Auscultation: normoactive bowel sounds Rectal Exam - Female: deferred Skin General skin exam: no rashes or lesions noted Neuro General: patient oriented x3, gait normal and no focal motor deficits Results Reviewed Results Reviewed: Laboratory Tests 06/12/24 05:24 WBC 10.2 RBC 4.56 Hgb 13.9 Hct 40.7 Plt Count 264 Sodium 138 Potassium 3.7 Chloride 109 H Carbon Dioxide 19 L Anion Gap 14 BUN 15 Estimated GFR > 60 AST 21 ALT 15 C-Reactive Protein 0.36 Total Protein 8.0 Lipase 17 FINDINGS: PANCREAS: The pancreatic tail is obscured by bowel gas. The visualized pancreas is normal. No pancreatic ductal dilatation. LIVER: Normal. GALLBLADDER: Normal. The gallbladder is physiologically distended without evidence of stones, sludge, polyps, wall thickening or pericholecystic fluid. COMMON BILE DUCT: Normal in caliber measuring 0.3 cm in diameter. RIGHT KIDNEY: Normal. No hydronephrosis. No renal calculi or focal parenchymal lesions. The kidney measures 10.8 cm in maximum dimension. FREE FLUID: None. US/US abdomen limited IMPRESSION: Normal ultrasound examination of the right upper quadrant. Assessment and Plan Assessment & Plan (1) Nausea vomiting and diarrhea: Code(s): R11.2 - Nausea with vomiting, unspecified; R19.7 - Diarrhea, unspecified Plan: ? If somewhat related to anxiety. We spent extensive time discussing if possibly her fear of getting sick was also making these symptoms exacerbated. She is currently on amitriptyline for the chronic abdominal pain which seems to be a little bit helpful and helpful for her generalized anxiety and she is on Remeron for her appetite. Discussed trying lorazepam when she developed her symptoms. We also discussed continuing with the Zofran but doing a short term follow up. (2) Chronic abdominal pain: Code(s): R10.9 - Unspecified abdominal pain; G89.29 - Other chronic pain Plan: As above. Abdominal exam today is benign (3) Generalized anxiety disorder: Code(s): F41.1 - Generalized anxiety disorder Plan: As above. Follow up in 4 weeks to be reassessed. Sooner if needed. Medications: New lorazepam 0.5 mg PO BID 30 days PRN 30 tabs 0RF anxiety Coding Level of Care Code Est Pt Level 4 (45121) Complex EM visit Add On G2211 Diagnoses Nausea vomiting and diarrhea R11.2; R19.7 Chronic abdominal pain R10.9; G89.29 Generalized anxiety disorder F41.1
[2024-06-19 14:44] VITALS: BP 90/64; PULSE 86; RESP 12; O2SAT 99; BMI 26.8
== END 2024-06-19 15:40 | disposition home or self-care (01) ==
PROVIDERS: PCP Physician Assistant; Visit Provider Physician Assistant
DX: R11.2 Nausea with vomiting, unspecified (principal); R19.7 Diarrhea, unspecified; R10.9 Unspecified abdominal pain; G89.29 Other chronic pain; F41.1 Generalized anxiety disorder
CPT/HCPCS: 99214

== ENCOUNTER 2024-08-20 12:57 | Outpatient (AMB) | payer OTHER, SELFPAY ==
--- NOTE | 2024-08-20 13:05 | MHC.OFFVIS ---
Vital Signs 08/20/24 13:08 Height 5 ft Weight 136 lb BMI 26.6 BP 98/70 Blood Pressure Location Rt brachial Position Sitting Pulse 104 H Pulse Source Pulse Oximeter Pulse Oximetry (%) 100 Oxygen Delivery Method Room Air Intake Visit Reasons: Follow up Intake Note: Patient presents for follow up Allergies lactose Allergy (Intermediate, Verified 08/20/24 13:07) Stomach Upset Sulfa (Sulfonamide Antibiotics) [SULFA (SULFONAMIDE ANTIBIOTICS)] Allergy (Unknown, Verified 08/20/24 13:07) UNKNOWN epinephrine Allergy (Verified 08/20/24 13:07) Unknown gluten Allergy (Verified 08/20/24 13:07) Diarrhea mushroom Allergy (Verified 08/20/24 13:07) Unknown Medication List - Last Reconciled 08/20/24 by ISAAK Freed albuterol sulfate 90 mcg/actuation (ProAir RespiClick) 2 puffs inhalation Q6H PRN amitriptyline 25 mg PO BEDTIME konpijpclq-zdaajvdlfoomw-nwvd 50-325-40 mg 1 cap PO Q4H PRN 30 days dicyclomine 10 mg PO QID PRN famotidine (Pepcid) 40 mg PO BID fremanezumab-vfrm (Ajovy Syringe) inject 225 mg subcut monthly; 30 days lorazepam 0.5 mg PO BID PRN 30 days metoclopramide HCl (Reglan) 10 mg PO Q6H PRN mirtazapine 7.5 mg (1/2 x 15 mg) PO BEDTIME 30 days ondansetron 4 mg PO Q8H PRN HPI Comments Details: 29-yr-old female presents for f/u visit, pt accompanied by her partner. Pt denies any significant interval medical changes. Pt saw POTs specialist at [facility]- was advised to retry Fludrocortsiine 0.1mg tab- 1/2 tab qam and increase her salt intake to 8gm of salt in the am. Try an abdominal binder. Advised to try [facility]s. Also notes increased food allergies- now allergic to shrimp. 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 Her PCP did increase the Amitriptyline to 25mg qhs- in hopes this would help nocturnal vomiting further- she has not had another nocturnal episode since 1 week after dose increase. Migraines have been overall better than they were, usually more so during the last week of her Ajovy injection. Typically, has 4-5 per month, which she is better able to manage. With some attacks, she does still need to lay down. Using Fioricet for these attacks. [facility] Medical History Frequent UTI Generalized anxiety disorder Snoring UTI (urinary tract infection) Paresthesia of both lower extremities Chronic abdominal pain COVID-19 Migraine POTS (postural orthostatic tachycardia syndrome) Surgical History History of esophagogastroduodenoscopy (EGD) History of wisdom tooth extraction Family History Father Unknown family medical history Mental disorder Mother HTN (hypertension) Social History Household Members: Family Housing: House Do you presently have visiting nurse or other home services: No Alcohol intake: never Patient Tobacco Use Status: Never used Tobacco e-Cigarette/Vaping Use: Former Use service: No Current occupational status: employed Current occupation: [employer] Current occupational exposures/hazards: No Cognitive needs: No Hearing needs: No Vision needs: No Physical Exam Vital Signs: Last Vital Signs Pulse 104 H 08/20/24 13:08 BP 98/70 08/20/24 13:08 Pulse Ox 100 08/20/24 13:08 Oxygen Delivery Method Room Air 08/20/24 13:08 BMI result Body Mass Index 26.6 Const General: cooperative and no acute distress Orientation/consciousness: patient oriented x3 Resp Effort & Inspection: normal respiratory effort and able to speak in complete sentences Neuro General: patient oriented x3 Cranial nerves: Yes CN's II-XII intact bilaterally Cognition (Neuro): normal cognition Psych Appearance: grossly normal Mental Status: mental status grossly normal Speech and movement: Normal speech and movement present Affect: normal affect Attitude: cooperative Assessment & Plan Assessment & Plan (1) Migraine with aura: Code(s): G43.109 - Migraine with aura, not intractable, without status migrainosus Category: Medical Qualifiers: Status migrainosus presence: without status migrainosus Intractability: not intractable Qualified Code(s): G43.109 - Migraine with aura, not intractable, without status migrainosus (2) Nausea vomiting and diarrhea: Code(s): R11.2 - Nausea with vomiting, unspecified; R19.7 - Diarrhea, unspecified Category: Medical (3) POTS (postural orthostatic tachycardia syndrome): Code(s): I49.8 - Other specified cardiac arrhythmias Category: Medical Plan For migraine prevention: Continue Amitriptyline 25mg qhs- this may be helping vomiting s/s. Continue Ajovy 225mg q month. Continue Mirtazapine for migraine prevention.. Previous tx trials- Amitriptyline ineffective. For acute migraine tx: Fioricet prn- sparingly. Previous tx trials- Sumatriptan, Naratriptan, Rizatriptan- all caused diffuse burning skin sensation. Ubrelvy- helpful but denied by insurance d/t Ajovy use. Tx contraindications: Triptans- d/t PVCs. Fioricet when taking Corlanor. ? For sleep issues: HST- previously did not record enough data- consider repeating in f/u. ? For brain fog in setting of POTs: Trial Fludrocortisone per POTS specialist. Increased salt- goal 8 GM per day. Pt to try CH[facility] PT exercise program. Continue frequent fluids, salty snacks, and paced activities. Refill methylphenidate as needed. F/u w/ allergy and GI- for ? of Mast cell d/o, food allergies.. ? Paresthesias: 03/01/24- ESR 10 WNL Reviewed BLE EMG/NCS- normal. Monitor. ? f/u in 6 months or sooner prn. Medications: New fludrocortisone 0.05 mg PO DAILY Refilled btcrsahylf-rksggmwbufxof-umfm 50-325-40 mg 1 cap PO Q4H 30 days PRN 20 caps 4RF pain Coding Level of Care Code Est Pt Level 4 (72651) Diagnoses Migraine with aura and without status migrainosus, not intractable G43.109 Status migrainosus presence: without status migrainosus Intractability: not intractable Nausea vomiting and diarrhea R11.2; R19.7 POTS (postural orthostatic tachycardia syndrome) I49.8
[2024-08-20 13:08] VITALS: BP 98/70; PULSE 104; O2SAT 100; BMI 26.6
== END 2024-08-20 13:57 | disposition home or self-care (01) ==
PROVIDERS: PCP Physician Assistant; Visit Provider Nurse Practitioner Family
DX: G43.109 Migraine with aura, not intractable, without status migrainosus (principal); R11.2 Nausea with vomiting, unspecified; R19.7 Diarrhea, unspecified; I49.8 Other specified cardiac arrhythmias
CPT/HCPCS: 99214

== ENCOUNTER → 2024-08-20 12:57 | Outpatient (BNVA) | payer OTHER, SELFPAY | PROVIDERS: PCP Physician Assistant; Visit Provider Nurse Practitioner Family ==

== ENCOUNTER 2024-08-21 14:02 | Outpatient (AMB) | payer OTHER, SELFPAY ==
--- NOTE | 2024-08-21 14:22 | MHC.PC.OV ---
Vital Signs 08/21/24 14:25 Height 5 ft Weight 136 lb 8 oz BMI 26.7 BP 92/68 Blood Pressure Location Lt brachial Position Sitting Pulse 82 Pulse Source Pulse Oximeter Pulse Oximetry (%) 98 Oxygen Delivery Method Room Air Intake Visit Reasons: Follow up, GI concerns Intake Note: Follow up GI concerns Allergies lactose Allergy (Intermediate, Verified 08/21/24 14:24) Stomach Upset Sulfa (Sulfonamide Antibiotics) [SULFA (SULFONAMIDE ANTIBIOTICS)] Allergy (Unknown, Verified 08/21/24 14:24) UNKNOWN epinephrine Allergy (Verified 08/21/24 14:24) Unknown gluten Allergy (Verified 08/21/24 14:24) Diarrhea mushroom Allergy (Verified 08/21/24 14:24) Unknown Medication List - Last Reconciled 08/21/24 by Mini Wilson PA-C albuterol sulfate 90 mcg/actuation (ProAir RespiClick) 2 puffs inhalation Q6H PRN amitriptyline 25 mg PO BEDTIME vjiyaxhnsn-cofznvudcpmil-eogx 50-325-40 mg 1 cap PO Q4H PRN 30 days dicyclomine 10 mg PO QID PRN famotidine (Pepcid) 40 mg PO BID fludrocortisone 0.05 mg PO DAILY fremanezumab-vfrm (Ajovy Syringe) inject 225 mg subcut monthly; 30 days lorazepam 0.5 mg PO BID PRN 30 days metoclopramide HCl (Reglan) 10 mg PO Q6H PRN mirtazapine 7.5 mg (1/2 x 15 mg) PO BEDTIME 30 days ondansetron 4 mg PO Q8H PRN Tobacco use date assessed: 06/05/24 Dental Screening Dental Screen Date: 03/04/24 HPI Follow up, GI concerns HPI Details Patient is a 29-year-old female who presents today for a follow up. She has a significant past medical history of anxiety, POTS, cyclical nausea, vomiting and diarrhea, chronic abdominal pain, migraines and multiple food allergens. GI: States that she is feeling better. She did try lorazepam 1 time when she started to feel the nausea symptoms and states that that did seem to resolve it. She states her gastric emptying study was normal. They do wonder if she is possibly having abdominal migraines. Neuro: She followed with her neurologist this week and states that she agreed with the potential abdominal migraines. She is overall feeling better. They discussed possibly increasing the amitriptyline but they are going to wait on this right now. CV: Followed with the [facility] and states they recommended 8 grams of salt a day, fludrocortisone 0.1 mg and try an abdominal binder. 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 [facility] Medical History Frequent UTI Generalized anxiety disorder Snoring UTI (urinary tract infection) Paresthesia of both lower extremities Chronic abdominal pain COVID-19 Migraine POTS (postural orthostatic tachycardia syndrome) Surgical History History of esophagogastroduodenoscopy (EGD) History of wisdom tooth extraction Family History Father Unknown family medical history Mental disorder Mother HTN (hypertension) Social History Household Members: Family Housing: House Do you presently have visiting nurse or other home services: No Alcohol intake: never Patient Tobacco Use Status: Never used Tobacco e-Cigarette/Vaping Use: Former Use service: No Current occupational status: employed Current occupation: [employer] Current occupational exposures/hazards: No Cognitive needs: No Hearing needs: No Vision needs: No Questionnaire PHQ-9 Over the last 2 weeks, how often have you been bothered by any of the following problems? 1. Little interest or pleasure in doing things: not at all 2. Feeling down, depressed, or hopeless: several days 3. Trouble falling or staying asleep, or sleeping too much: several days 4. Feeling tired or having little energy: several days 5. Poor appetite or overeating: several days 6. Feeling bad about yourself - or that you are a failure or have let yourself or your family down: not at all 7. Trouble concentrating on things, such as reading the newspaper or watching television: not at all 8. Moving or speaking so slowly that other people could have noticed. Or the opposite - being so fidgety or restless that you have been moving around a lot more than usual: not at all 9. Thoughts that you would be better off or of hurting yourself in some way: not at all Total score: 4 Source: Developed by Drs. Iván Payne, Tracy Grady, Rajeev Estrada and colleagues, with an educational thuy from [employer]. Thrive Questionnaire Date Thrive assessed: 03/04/24 I am a: Patient What is your living situation today?: I have a steady place to live Within the past 12 months, did the food you bought not last and you didn't have the money to get more?: Never true Within the past 12 months, did you worry whether your food would run out before you got money to buy more?: Never true Do you have trouble paying for medicines?: Yes Do you have trouble getting transportation to medical appointments?: No Do you have trouble paying your heating and electricity bill?: No Do you have trouble taking care of your child, family member or friend?: No Do you have trouble with day-to-day activities such as bathing, preparing meals, shopping, managing finances, etc.?: No Are you currently unemployed and looking for a job?: No Are you interested in more education?: No Please select the resources that you would like help with: None Currently or been in a relationship where the following occur: No concerns reported THRIVE Score: 0 AUDIT C Alcohol Use Questionnaire (AUDIT-C) 1. How often do you have a drink containing alcohol?: Never Total Score: 0 ABIMBOLA-7 AMB Questionnaire ABIMBOLA-7 Date ABIMBOLA - 7 assessed: 03/04/24 Feeling nervous, anxious, or on edge: 0 = Not at all Not being able to stop or control worryin = Not at all Worrying too much about different things: 0 = Not at all Trouble relaxin = Not at all Being so restless that it is hard to sit still: 0 = Not at all Becoming easily annoyed or irritable: 0 = Not at all Feeling afraid as if something awful might happen: 0 = Not at all Total ABIMBOLA-7 score (0-4 normal; 5-9 mild; 10-14 moderate; 15-21 severe): 0 Source: Developed by Tracy Barroso, Rajeev Estrada and colleagues, with an educational thuy from [employer]. Physical exam (Primary Care) Vital Signs: Last Vital Signs Pulse 82 08/21/24 14:25 BP 92/68 08/21/24 14:25 Pulse Ox 98 08/21/24 14:25 Oxygen Delivery Method Room Air 08/21/24 14:25 BMI result Body Mass Index 26.7 Tobacco/Smoking Status: Tobacco use Status Tobacco use date assessed 06/05/24 08/21/24 14:28 Patient Tobacco Use Status Never used Tobacco 08/21/24 14:28 e-Cigarette/Vaping Use Former Use 08/21/24 14:28 PHQ-9: PHQ-9 Score PHQ-9: Total score 4 08/21/24 14:40 Thrive Assessment: Date of Thrive Assessment Date Thrive assessed 03/04/24 08/21/24 14:28 Currently or been in a relationship where the following occur: No concerns reported Const Orientation/consciousness: patient oriented x3 HENMT Ears: hearing grossly normal bilaterally Neck Thyroid: Thyroid normal Lymphatic: no lymphadenopathy noted Resp Auscultation: clear to auscultation bilaterally Cardio Rate: regular rate Rhythm: regular rhythm Heart sounds: S1 normal heart sound present and S2 normal heart sound present GI Inspection: Yes normal to inspection Palpation (GI): Soft to palpation and Other GI palpation findings present (nontender, no cva tenderness) Auscultation: normoactive bowel sounds Rectal Exam - Female: deferred Skin General skin exam: no rashes or lesions noted Neuro General: patient oriented x3, gait normal and no focal motor deficits Assessment and Plan Assessment & Plan (1) Generalized anxiety disorder: Code(s): F41.1 - Generalized anxiety disorder Plan: Currently well-controlled (2) POTS (postural orthostatic tachycardia syndrome): Code(s): I49.8 - Other specified cardiac arrhythmias Plan: Following in [place]. States that she is hopeful with this. (3) Chronic abdominal pain: Code(s): R10.9 - Unspecified abdominal pain; G89.29 - Other chronic pain Plan: Currently controlled. Coding Level of Care Code Est Pt Level 4 (27710) Diagnoses Generalized anxiety disorder F41.1 POTS (postural orthostatic tachycardia syndrome) I49.8 Chronic abdominal pain R10.9; G89.29
[2024-08-21 14:25] VITALS: BP 92/68; PULSE 82; O2SAT 98; BMI 26.7
== END 2024-08-21 14:55 | disposition home or self-care (01) ==
PROVIDERS: PCP Physician Assistant; Visit Provider Physician Assistant
DX: F41.1 Generalized anxiety disorder (principal); I49.8 Other specified cardiac arrhythmias; R10.9 Unspecified abdominal pain; G89.29 Other chronic pain

== ENCOUNTER → 2024-08-21 14:02 | Outpatient (BNVA) | payer OTHER, SELFPAY | PROVIDERS: PCP Physician Assistant; Visit Provider Physician Assistant | DX: F41.1 Generalized anxiety disorder (principal); I49.8 Other specified cardiac arrhythmias; G89.29 Other chronic pain; R10.9 Unspecified abdominal pain | CPT/HCPCS: 96127 ==

== ENCOUNTER 2024-08-24 02:11 | Emergency (ER) | payer OTHER, SELFPAY ==
--- NOTE | 2024-08-24 | ECG_ITS ---
Test Reason : dizziness Blood Pressure : / mmHG Vent. Rate : 100 BPM Atrial Rate : 100 BPM P-R Int : 100 ms QRS Dur : 084 ms QT Int : 354 ms P-R-T Axes : 071 088 084 degrees QTc Int : 456 ms Sinus rhythm with short OH Otherwise normal ECG When compared with ECG of 25-AUG-2020 14:04, Non-specific change in ST segment in Anterior leads T wave inversion less evident in Anterior leads Referred By: Generic ED Physician Electronically Signed By:ZONIA SANTANA
[2024-08-24 02:16] VITALS: BP 113/70; PULSE 102; RESP 22; TEMP 36.6; O2SAT 100; BMI 25.3
--- NOTE | 2024-08-24 02:34 | MHC.EDTECH ---
Patient brought into triage area,EKG taken per order and signed by provider,labs drawn and sent to lab,patient was unable to give a urine sample at this time.
[2024-08-24 02:44] VITALS: BP 111/65; PULSE 101; RESP 22; O2SAT 98
[2024-08-24 02:45] LABS: MANUAL DIFF FLAG NO
[2024-08-24 02:49] LABS: Basophils Percent Auto 0.5 % (0-2); Eosinophils Absolute Auto 0.2 X10*3/uL (0.0-0.4); Eosinophils Percent Auto 1.9 % (0-4); Hemoglobin 12.8 g/dl (12.0-16.0); Imm Gran Abs Auto 0.03 X10*3/uL (0.00-0.03); Imm Gran Pct Auto 0.4 % (0.0-0.4); Lymphocytes Absolute Auto 2.5 X10*3/uL (1.2-4.9); Lymphocytes Percent Auto 29.5 % (20-40); Mean Corpuscular HGB Conc 34.6 g/dl (31.0-35.0); Mean Corpuscular Hemoglobin 30.8 pg (27.0-33.0); Mean Corpuscular Volume 89.2 fL (80.0-98.0); Mean Platelet Volume 10.7 fL (9.4-12.3); Monocytes Absolute Auto 0.8 X10*3/uL (0.1-1.2); Monocytes Percent Auto 9.4 % (2-11); Neutrophils Absolute Auto 4.9 x10*3/uL (2.0-8.3); Neutrophils Percent Auto 58.3 % (45-73); Platelet Count 266 X10*3/uL (160-400); Red Blood Count 4.15 X10*6/uL (4.20-5.50); Red Cell Distribution Width 13.2 % (11.0-16.0); White Blood Count 8.4 X10*3/uL (4.8-10.8)
[2024-08-24 03:02] LABS: Alanine Aminotransferase 13 U/L (0-31); Albumin Level 4.3 g/dL (3.5-5.0); Alkaline Phosphatase 61 U/L (39-117); Anion Gap 16 (12-20); Aspartate Amino Transferase 17 U/L (5-31); Bilirubin Direct < 0.2 mg/dL (0.0-0.5); Bilirubin Total 0.2 mg/dL (0.0-1.0); Blood Urea Nitrogen 14 mg/dL (9-16); Calcium 9.8 mg/dL (8.4-10.2); Carbon Dioxide 19 mmol/L (22-29); Chloride 106 mmol/L (96-108); Creatinine Clr Calc Pharmacy 67.5; Estimated Glomerular Filt Rate > 60; Glucose Random 144 mg/dL (60-115); Potassium 3.4 mmol/L (3.3-5.1); Sodium 138 mmol/L (135-145); Total Protein 7.8 g/dL (6.5-8.0)
[2024-08-24 03:59] VITALS: BP 100/65; PULSE 83; RESP 12; TEMP 36.6; O2SAT 98
--- NOTE | 2024-08-24 05:27 | ED.DIZZY ---
HPI - Dizziness General Chief Complaint: Dizziness Stated Complaint: Dizzy Time Seen by Provider: 08/24/24 05:21 Source: patient Mode of arrival: ambulatory Limitations: no limitations History of Present Illness ED Provider: Dr. Roberts HPI Narrative: Patient is a 29 yo female with a history of WILSON and vertigo present with sudden onset of dizziness when she moves her head associated with Nausea, diaphoresis. She describes her dizziness as the room spinning. Related Data Home Medications ?Medication ?Instructions ?Recorded ?Confirmed albuterol sulfate 90 mcg/actuation 2 puff inhalation Q6H PRN 01/17/22 08/21/24 breath activated powder inhaler Shortness Of Breath (ProAir RespiClick) dicyclomine 10 mg capsule 10 mg PO QID PRN Abdominal 04/18/23 08/21/24 Discomfort fludrocortisone 0.1 mg tablet 0.05 mg PO DAILY 08/20/24 08/21/24 Previous Rx's ?Medication ?Instructions ?Recorded famotidine 40 mg tablet (Pepcid) 40 mg PO BID #60 tabs 10/13/23 mirtazapine 15 mg tablet 7.5 mg (1/2 x 15 mg) PO BEDTIME 30 01/04/24 days #15 tabs ondansetron 4 mg disintegrating 4 mg PO Q8H PRN nausea and 02/23/24 tablet vomiting #10 tabs fremanezumab-vfrm 225 mg/1.5 mL 225 mg (1.5 mL) subcut .COMPLEX 30 03/18/24 subcutaneous syringe ( #1.5 mL Syringe) amitriptyline 25 mg tablet 25 mg PO BEDTIME #90 tabs 06/05/24 metoclopramide HCl 10 mg tablet 10 mg PO Q6H PRN nausea and 06/12/24 (Reglan) vomiting #30 tabs lorazepam 0.5 mg tablet 0.5 mg PO BID PRN anxiety 30 days 06/19/24 #30 tabs ecukclrqtj-bbrgwqnzpzqpk-xrpwuptj 1 cap PO Q4H PRN pain 30 days #20 08/20/24 50 mg-325 mg-40 mg capsule caps meclizine 25 mg tablet 25 mg PO QID #20 tabs 08/24/24 Allergies Allergy/AdvReac Type Severity Reaction Status Date / Time lactose Allergy Intermediate Stomach Verified 08/24/24 02:18 Upset Sulfa (Sulfonamide Allergy Unknown UNKNOWN Verified 08/24/24 02:18 Antibiotics) [SULFA (SULFONAMIDE ANTIBIOTICS)] epinephrine Allergy Unknown Verified 08/24/24 02:18 gluten Allergy Diarrhea Verified 08/24/24 02:18 mushroom Allergy Unknown Verified 08/24/24 02:18 Review of Systems Review of Systems: Yes all other systems are reviewed and are negative Neurologic: Denies Sensory deficit (Neuro) [facility] Past Medical History Medical History Frequent UTI Generalized anxiety disorder Snoring UTI (urinary tract infection) Paresthesia of both lower extremities Chronic abdominal pain COVID-19 Migraine POTS (postural orthostatic tachycardia syndrome) Surgical History History of esophagogastroduodenoscopy (EGD) History of wisdom tooth extraction Family History Family History Father Unknown family medical history Mental disorder Mother HTN (hypertension) Social History Social History Household Members: Family Housing: House Do you presently have visiting nurse or other home services: No Alcohol intake: never Patient Tobacco Use Status: Never used Tobacco Smoked in Last 30 Days: No e-Cigarette/Vaping Use: Former Use Use of substances other than those prescribed or required for medical reasons: No Advance Directives: No Advance Directives Information Provided: Yes Do you have a plan to hurt others: No Plan Patient : No service: No Current occupational status: employed Current occupation: [employer] Current occupational exposures/hazards: No Cognitive needs: No Hearing needs: No Vision needs: No Physical Exam Vital Signs: Vital Signs: Last Vital Signs Temp 98.4 F 08/24/24 06:00 Pulse 86 08/24/24 06:00 Resp 14 08/24/24 06:00 BP 103/72 08/24/24 06:00 Pulse Ox 98 08/24/24 06:00 O2 Del Method Room Air 08/24/24 06:00 BMI result Body Mass Index 25.3 Const: Other: Patient is pale, nauseated Nutritional Appearance: average body habitus Orientation/consciousness: oriented to person and patient oriented x3 Limitations: no limitations HEENT: Head: Yes normal to inspection Ears: external ears normal General nose exam: Normal external nose present Mouth: Normal oral and palatal mucosa present and oropharynx normal Throat: Yes posterior oropharynx normal Eyes: Other: on left lateral gaze patient has nystagmus with severe dizziness General: appearance normal, both eyes and all related structures Neck: Other: supple Neck: Yes normal visual inspection Chest: Chest palpation & inspection: normal inspection of the chest Resp: Auscultation: clear to auscultation bilaterally Cardio: Jugular venous distension: no JVD Rate: regular rate Rhythm: regular rhythm Heart sounds: S1 normal heart sound present and S2 normal heart sound present GI: Inspection: Yes normal to inspection Palpation (GI): Soft to palpation, nontender and No hepatosplenomegaly present Auscultation: normal bowel sounds : General: Yes no CVA tenderness Back/Spine/Pelvis: Back: no CVA tenderness Skin: General skin exam: no rashes or lesions noted Neuro: General: oriented to person and patient oriented x3 Cranial nerves: Yes CN's II-XII intact bilaterally Motor exam (neuro): 5/5 motor strength present throughout Sensory Exam: No Sensory deficit (Neuro) Extrem: General: Yes normal to inspection Psych: Appearance: grossly normal Course Reevaluation(s) Reevaluation #1: Patient with nystagmus and positive barrone. She is unable to move her head Time: 07:09 Reevaluation #2: patient improved after meclizine will dc home Time: 07:09 Medications Administered Discontinued Medications Generic Name Dose Route Start Last Admin Trade Name Freq PRN Reason Stop Dose Admin Meclizine HCl 50 mg 08/24/24 05:29 08/24/24 05:33 Meclizine Hcl 25 Mg Tablet PO 08/24/24 05:30 50 mg ONCE ONE Administration Medical Decision Making Differential Diagnosis Differential Diagnoses: The differential diagnosis associated with the presentation includes (BPV, otitis media, electrolyte abnormality) Admission/Observation Consideration of admission/observation: Escalation of care including admission/observation considered (upon arrival patient was considered for admission) Lab Data 08/24/24 02:34 08/24/24 02:34 Labs: Lab Results 08/24/24 08/24/24 Range/Units 02:34 06:02 WBC 8.4 (4.8-10.8) X10*3/uL RBC 4.15 L (4.20-5.50) X10*6/uL Hgb 12.8 (12.0-16.0) g/dl Hct 37.0 (37.0-47.0) % MCV 89.2 (80.0-98.0) fL MCH 30.8 (27.0-33.0) pg MCHC 34.6 (31.0-35.0) g/dl RDW 13.2 (11.0-16.0) % Plt Count 266 (160-400) X10*3/uL MPV 10.7 (9.4-12.3) fL Immature Gran % (Auto) 0.4 (0.0-0.4) % Neut % (Auto) 58.3 (45-73) % Lymph % (Auto) 29.5 (20-40) % [place] % (Auto) 9.4 (2-11) % Eos % (Auto) 1.9 (0-4) % Baso % (Auto) 0.5 (0-2) % Lymph # (Auto) 2.5 (1.2-4.9) X10*3/uL [place] # (Auto) 0.8 (0.1-1.2) X10*3/uL Eos # (Auto) 0.2 (0.0-0.4) X10*3/uL Baso # (Auto) 0.0 (0.0-0.2) X10*3/uL Abs Immat Gran (auto) 0.03 (0.00-0.03) X10*3/uL Absolute Neuts (auto) 4.9 (2.0-8.3) x10*3/uL Absolute Nucleated RBC 0.000 (0.0-0.012) X10*3/uL Nucleated RBC % (auto) 0.0 (0.0-0.2) /100WBC Sodium 138 (135-145) mmol/L Potassium 3.4 (3.3-5.1) mmol/L Chloride 106 (96-108) mmol/L Carbon Dioxide 19 L (22-29) mmol/L Anion Gap 16 (12-20) BUN 14 (9-16) mg/dL Creatinine 1.01 (0.5-1.4) mg/dL Estim Creat Clear Calc 67.5 Estimated GFR > 60 Random Glucose 144 H (60-115) mg/dL Calcium 9.8 (8.4-10.2) mg/dL Total Bilirubin 0.2 (0.0-1.0) mg/dL Direct Bilirubin < 0.2 (0.0-0.5) mg/dL AST 17 (5-31) U/L ALT 13 (0-31) U/L Alkaline Phosphatase 61 (39-117) U/L Total Protein 7.8 (6.5-8.0) g/dL Albumin 4.3 (3.5-5.0) g/dL Urine Color Yellow Urine Appearance Clear Urine pH 6.5 (5.0-9.0) Ur Specific [place] <= 1.005 (1.005-1.025) Urine Protein Negative (Neg-Trace) mg/dL Urine Glucose (UA) Negative (Negative) mg/dL Urine Ketones Negative (Negative) mg/dL Urine Blood Trace H (Negative) Urine Nitrite Negative (Negative) Ur Leukocyte Esterase Negative (Negative) Urine RBC 0-2 (0-2) /HPF Urine WBC 0-5 (0-5) /HPF Ur Squamous Epith Cells 0-2 (0-2) /HPF Urine Bacteria None Seen (None Seen) Hyaline Casts 0-2 (0-2) /LPF Urine Test NEGATIVE (NEGATIVE) Independent Interpretation I performed an independent interpretation of an: EKG (sinus tachycardia, rate 100, no st or twave changes) Independent Historian Clinical information obtained from an independent historian. History obtained from or confirmed by: Spouse Tests considered The following testing was considered but not selected: Ct of brain considered but patient with a prior history of vertigo Prescription Management I considered prescription management with: Antibiotic (no evidence of otitis media or externa) Discharge Plan Discharge Clinical Impression: Benign paroxysmal positional vertigo Patient Disposition: Home, Self-Care Instructions: Vertigo (DC) Prescriptions: New meclizine 25 mg tablet 25 mg PO QID Qty: 20 0RF No Action mirtazapine 15 mg tablet 7.5 mg PO BEDTIME 30 Days Qty: 15 6RF Ajovy Syringe 225 mg/1.5 mL syringe 225 mg subcut .COMPLEX 30 Days Qty: 1.5 6RF Rx Instructions: inject 225 mg subcut monthly; ProAir RespiClick 90 mcg/actuation aerosol powdr breath activated 2 puff inhalation Q6H PRN (Reason: Shortness Of Breath) dicyclomine 10 mg capsule 10 mg PO QID PRN (Reason: Abdominal Discomfort) metoclopramide HCl [Reglan] 10 mg tablet 10 mg PO Q6H PRN (Reason: nausea and vomiting) Qty: 30 0RF ondansetron 4 mg tablet,disintegrating 4 mg PO Q8H PRN (Reason: nausea and vomiting) Qty: 10 0RF amitriptyline 25 mg tablet 25 mg PO BEDTIME Qty: 90 3RF lorazepam 0.5 mg tablet 0.5 mg PO BID PRN (Reason: anxiety) 30 Days Qty: 30 0RF famotidine [Pepcid] 40 mg tablet 40 mg PO BID Qty: 60 4RF phuprzmnfr-tdllimazbvxmd-hfmv 50-325-40 mg capsule 1 cap PO Q4H PRN (Reason: pain) 30 Days Qty: 20 4RF fludrocortisone 0.1 mg tablet 0.05 mg PO DAILY Referrals: Mini Wilson PA-C [Primary Care Provider] - 3 days Print Language: Syriac
[2024-08-24] MEDS: Meclizine HCl 25 MG TABLET 50 MG PO (05:33)
[2024-08-24 06:00] VITALS: BP 103/72; PULSE 86; RESP 14; TEMP 36.9; O2SAT 98
[2024-08-24 06:16] LABS: Color Urine Yellow; Glucose Urine UA Negative (Negative); Leukocyte Esterase Urine Negative (Negative); Nitrite Urine Negative (Negative); PH 6.5 (5.0-9.0); Specific Gravity - Urine <= 1.005 (1.005-1.025); UMIC TRIGGER UACC YES; Urine Blood Trace (Negative); Urine Ketones Negative (Negative); Urine Protein Negative (Neg-Trace)
[2024-08-24 06:19] LABS: UPreg QC Valid YES; Urine Pregnancy NEGATIVE (NEGATIVE)
[2024-08-24 06:32] LABS: Bacteria Urine None Seen (None Seen); Hyaline Casts Urine 0-2 /LPF (0-2); RBC Urine 0-2 /HPF (0-2); Squamous Epithelial Cell Urine 0-2 /HPF (0-2); WBC Urine 0-5 /HPF (0-5)
[2024-08-24 06:33] LABS: Appearance Urine Clear
[2024-08-24 08:01] VITALS: BP 94/61; PULSE 98; RESP 14; TEMP 36.9; O2SAT 98
== END 2024-08-24 08:03 | disposition home or self-care (01) ==
PROVIDERS: Emergency Provider Emergency Medicine; PCP Physician Assistant
DX: H81.10 Benign paroxysmal vertigo, unspecified ear (principal); R11.0 Nausea; R61 Generalized hyperhidrosis; H55.00 Unspecified nystagmus; Z79.899 Other long term (current) drug therapy
CPT/HCPCS: 36415; 80053; 81001; 81025; 82248; 85025; 93005; 99283; 99285

== ENCOUNTER 2024-11-23 02:57 | Emergency (ER) | payer OTHER, SELFPAY ==
[2024-11-23 03:11] VITALS: BP 99/77; PULSE 123; RESP 20; TEMP 36.6; O2SAT 100; BMI 25.5
--- NOTE | 2024-11-23 03:40 | MHC.EDTECH ---
Patient brought in from triage,changed into hospital attire,labs drawn and sent to lab,patient is unable to give a urine at this time,boyfriend at bedside call kennedy in reach
[2024-11-23 03:45] LABS: MANUAL DIFF FLAG NO
[2024-11-23 03:55] LABS: Basophils Percent Auto 0.2 % (0-2); Eosinophils Absolute Auto 0.2 X10*3/uL (0.0-0.4); Eosinophils Percent Auto 2.6 % (0-4); Hematocrit 36.2 % (37.0-47.0); Hemoglobin 12.4 g/dl (12.0-16.0); Imm Gran Abs Auto 0.03 X10*3/uL (0.00-0.03); Imm Gran Pct Auto 0.4 % (0.0-0.4); Lymphocytes Absolute Auto 1.6 X10*3/uL (1.2-4.9); Lymphocytes Percent Auto 18.5 % (20-40); Mean Corpuscular HGB Conc 34.3 g/dl (31.0-35.0); Mean Corpuscular Hemoglobin 31.5 pg (27.0-33.0); Mean Corpuscular Volume 91.9 fL (80.0-98.0); Mean Platelet Volume 10.9 fL (9.4-12.3); Monocytes Absolute Auto 0.6 X10*3/uL (0.1-1.2); Monocytes Percent Auto 7.5 % (2-11); Neutrophils Percent Auto 70.8 % (45-73); Platelet Count 219 X10*3/uL (160-400); Red Blood Count 3.94 X10*6/uL (4.20-5.50); Red Cell Distribution Width 12.7 % (11.0-16.0); White Blood Count 8.4 X10*3/uL (4.8-10.8)
[2024-11-23 04:06] LABS: Alanine Aminotransferase 15 U/L (0-31); Alkaline Phosphatase 59 U/L (39-117); Anion Gap 12 (12-20); Aspartate Amino Transferase 19 U/L (5-31); Bilirubin Direct 0.2 mg/dL (0.0-0.5); Bilirubin Total 0.5 mg/dL (0.0-1.0); Blood Urea Nitrogen 14 mg/dL (9-16); Calcium 8.7 mg/dL (8.4-10.2); Carbon Dioxide 22 mmol/L (22-29); Chloride 109 mmol/L (96-108); Creatinine Clr Calc Pharmacy 82.4; Estimated Glomerular Filt Rate > 60; Glucose Random 104 mg/dL (60-115); Lipase 13 U/L (8-78); Potassium 3.5 mmol/L (3.3-5.1); Sodium 139 mmol/L (135-145); Total Protein 7.1 g/dL (6.5-8.0)
--- OUTSIDE RECORDS SUMMARY | 2024-11-23 04:07 | XMS_ITS | Data Portability ---
Author Organization [facility] [address] Address [address] [place] [address] Assessment No assessment recorded. Plan of Treatment Reminders Order Date Submit Date Provider Last Modified By Organization Details Last Modified Time Details Appointments None record ed. Lab None record ed. Referral None record ed. Procedures None record ed. Surgeries None record ed. Imaging None record ed. Medication Orders None record ed. Patient TargetsNo targets recorded. Patient InstructionsNo instructions recorded. Reason for Referral None Reported. Procedures Surgical History Date Name Laterality Status Provider Name and Address Organization Details Recorded Time OC-UDS Send Out Template NON DOT completed Adyran PERRY [employer] 08/29/2024 18:12:51 Imaging Results None recorded. Procedure Notes None recorded. Medical Equipment None Reported. Medications Name Sig Start Date Stop Date Status Note LastModified by Organization Details LastModified Time butalbital-a cetaminophen -caffeine 50 mg-325 mg-40 mg capsule TAKE 1 CAPSULE BY MOUTH EVERY 4 HOURS NEEDED FOR PAIN *FOR 30 DAYS* active Not Available Not Available No t Available cephalexin 250 mg capsule TAKE 1 CAPSULE BY MOUTH EVERY DAY NEEDED active Not Available Not Available No t Available famotidine 40 mg tablet TAKE 1 TABLET BY MOUTH TWICE A DAY active Not Available Not Available No t Available ciprofloxaci n 500 mg tablet TAKE 1 TABLET BY MOUTH TWICE A DAY active Not Available Not Available No t Available ondansetron 8 mg disintegrati ng tablet TAKE 1 TABLET BY MOUTH EVERY 8 HOURS active Not Available Not Available No t Available ofloxacin 0.3 % ear drops INSTILL 1-2 DROPS 4 TIMES A DAY FOR 5 DAYS active Not Available Not Available N ot Available amitriptylin e 25 mg tablet TAKE 1 TABLET BY MOUTH EVERYDAY AT BEDTIME active Not Available Not Available No t Available lorazepam 0.5 mg tablet TAKE 1 TABLET BY MOUTH TWICE A DAY NEEDED FOR ANXIETY active Not Available Not Available No t Available amitriptylin e 10 mg tablet TAKE 1 TO 2 TABLETS BY MOUTH AT BEDTIME active Not Available Not Available No t Available meclizine 25 mg tablet active Not Available Not Available No t Available nitrofuranto in macrocrystal 100 mg capsule TAKE 1 CAPSULE ORALLY 2 TIMES A DAY MUST ADMINISTER WITH A MEAL/FOOD active Not Available Not Available No t Available omeprazole 20 mg capsule,randolph yed release TAKE 1 CAPSULE BY MOUTH TWICE A DAY active Not Available Not Available No t Available mirtazapine 15 mg tablet TAKE 1/2 TABLET BY MOUTH AT BEDTIME FOR 30 DAYS active Not Available Not Available No t Available azelastine 137 mcg (0.1 %) nasal spray 1-2 SPRAYS TO EACH NOSTRIL TWICE A DAY NEEDED active Not Available Not Available No t Available albuterol sulfate HFA 90 mcg/actuatio n aerosol inhaler INHALE 2 PUFFS EVERY 4 HOURS NEEDED active Not Available Not Available No t Available ondansetron 4 mg disintegrati ng tablet DISSOLVE 1 TABLET IN MOUTH EVERY 8 HOURS NEEDED FOR NAUSEA AND VOMITING active Not Available Not Available No t Available fludrocortis one 0.1 mg tablet TAKE 1 TABLET BY MOUTH EVERY DAY active Not Available Not Available No t Available metocloprami de 10 mg tablet TAKE 1 TABLET ORALLY EVERY 6 HOURS NEEDED FOR NAUSEA AND VOMITING active Not Available Not Available No t Available Pulmicort Flexhaler 180 mcg/actuatio n breath activated TAKE 2 PUFFS BY MOUTH TWICE A DAY active Not Available Not Available No t Available cholecalcife rol (vitamin D3) 1,250 mcg (50,000 unit) capsule TAKE 1 CAPSULE BY MOUTH EVERY WEEK active Not Available Not Available No t Available sodium,potas sium,mag sulfates 17.5 gram-3.13 gram-1.6 gram oral soln SEE COLONOSCOPY INSTRUCTION S. active Not Available Not Available No t Available Corlanor 5 mg tablet active Not Available Not Available No t Available Ajovy Syringe 225 mg/1.5 mL subcutaneous active Not Available Not Available Not Available Vitals None Recorded Social History None recorded. Functional Status None recorded. Mental Status None recorded. Family History Nothing Reported. Medical History No medical history recorded. Gynecological HistoryNo gynecological history recorded. Obstetrics History GPAL:G 0 P 0 0 0 0 Past Encounters Encounter ID Performer Location Encounter Start Date Encounter Closed Date Diagnosis/Indication Diagnosis SNOMED-CT Code Diagnosis ICD10 Code [id number] [address] [place] [phone] 07/11/2020 12:45:21 07/11/2020 14:03:24 [id number] [id number] [place] [address] 02/12/2020 17:49:36 02/12/2020 18:26:46 [id number] TORO AYALA MD [address] [place] [phone] 08/29/2024 17:31:45 08/29/2024 18:14:28 History and physical examination, occupation [id number] Z02.1 Health Concerns Section Related Observation LastModified by Organization Detai ls LastModified Time None Recorded Concern Status LastModified by Organization Details LastModified Time None Recorded Advance Directives Directive None Recorded Payers Encounter Date Sequence Insurance Name Policy Number Policy Leone Covered Member ID Leone Member ID Guarantor Name 02/12/2020 1 [facility] NET PLAN (MEDICAID HMO) [id number] Deanne Reid [id number] Deanne Reid 07/11/2020 1 [facility] [employer] FORMERLY [facility] PLAN (MEDICAID O) [id number] Deanne Reid [id number] Deanne Reid 08/29/2024 OC-ESCREEN [facility] [[id number]] [employer] Deanne Reid OBGyn Episode No OBEpisode recorded.
--- OUTSIDE RECORDS SUMMARY | 2024-11-23 04:07 | XMS_ITS | Continuity of Care Document ---
Author Organization [facility] [address] Address [address] [place] [address] Assessment No assessment recorded. Plan of Treatment [...] OC-UDS Send Out Template NON DOT completed Adryan Marina [place] [employer] 08/29/2024 18:12:51 Imaging Results None recorded. Procedure [...] Diagnosis/Indication Diagnosis SNOMED-CT Code Diagnosis ICD10 Code [id number] [place] [address] [phone] 08/29/2024 17:31:45 08/29/2024 18:14:28 History and physical examination, occupation [id number] Z02.1 Health Concerns Section Related Observation LastModified by Organization Detai ls LastModified Time None Recorded Concern Status LastModified by Organization Details LastModified Time None Recorded Payers Encounter Date Sequence Insurance Name Policy Number Policy Leone Covered Member ID Leone Member ID Guarantor Name 08/29/2024 OC-ESCREEN [facility] [[id number]] [employer] Deanne Reid OBKatharina Episode No OBEpisode recorded.
[2024-11-23 05:17] VITALS: BP 95/67; PULSE 106; RESP 14; TEMP 36.9; O2SAT 97
--- NOTE | 2024-11-23 05:17 | PC.NURSE ---
pt denies n/v at this time pt states able to get some rest while awaiting to be seen by ed provider
--- NOTE | 2024-11-23 06:34 | PC.NURSE ---
pt sleeping at this time pt awaiting to be seen by ed provider
[2024-11-23 07:23] VITALS: BP 98/68; PULSE 104; RESP 15; TEMP 36.9; O2SAT 98
[2024-11-23] MEDS: 0.9 % Sodium Chloride 1,000 ML 999 ML IV (07:33)
[2024-11-23] MEDS: diphenhydrAMINE HCL 50 MG/ML VIAL 25 MG IVPUSH (07:33)
[2024-11-23] MEDS: Metoclopramide HCl 10 MG/2 ML VIAL IVPUSH (07:33)
[2024-11-23] MEDS: Ketorolac Tromethamine 15 MG/ML VIAL IVPUSH (07:33)
--- NOTE | 2024-11-23 08:05 | ED_ITS ---
HPI - Abdominal Pain General Chief Complaint: Abdominal Pain Stated Complaint: abd pain Time Seen by Provider: 11/23/24 06:36 Source: patient Mode of arrival: ambulatory Limitations: no limitations History of Present Illness ED Provider: Lucrecia Martinez NP HPI narrative: Patient is a 29-year-old female presents emergency department for evaluation of epigastric abdominal pain. Has had history of longstanding epigastric pain with nausea and vomiting. This episode started yesterday evening states that she was vomiting all night bilious non bloody emesis, and she awoke with severe epigastric pain. She has been evaluated by Gastroenterology at [facility]. Acevedo who has previously advised her to utilize famotidine, charcoal tablets, and Bentyl as well as [facility] Dr. Trevor Escalante - as a 2nd opinion who advised her to take Co Q10 and riboflavin. Reports that she has had prior EGD without abnormality multiple testing for H pylori which has been negative. She states that she has been compliant with taking famotidine that has not helped her symptoms today. Denies fevers, chills, hematemesis, diarrhea, constipation, hematochezia, melena, dysuria, urinary frequency, urinary urgency, urinary hesitancy, hematuria. Denies concern for , LMP unknown secondary to IUD. Related Data Home Medications ?Medication ?Instructions ?Recorded ?Confirmed albuterol sulfate 90 mcg/actuation 2 puff inhalation Q6H PRN 01/17/22 08/21/24 breath activated powder inhaler Shortness Of Breath (ProAir RespiClick) dicyclomine 10 mg capsule 10 mg PO QID PRN Abdominal 04/18/23 08/21/24 Discomfort fludrocortisone 0.1 mg tablet 0.05 mg PO DAILY 08/20/24 08/21/24 Previous Rx's ?Medication ?Instructions ?Recorded ondansetron 4 mg disintegrating 4 mg PO Q8H PRN nausea and 02/23/24 tablet vomiting #10 tabs amitriptyline 25 mg tablet 25 mg PO BEDTIME #90 tabs 06/05/24 metoclopramide HCl 10 mg tablet 10 mg PO Q6H PRN nausea and 06/12/24 (Reglan) vomiting #30 tabs lorazepam 0.5 mg tablet 0.5 mg PO BID PRN anxiety 30 days 06/19/24 #30 tabs kfldcssxru-iporworqniqxy-rsgywuvh 1 cap PO Q4H PRN pain 30 days #20 08/20/24 50 mg-325 mg-40 mg capsule caps meclizine 25 mg tablet 25 mg PO QID #20 tabs 08/24/24 mirtazapine 15 mg tablet 7.5 mg (1/2 x 15 mg) PO BEDTIME 30 08/28/24 days #15 tabs fremanezumab-vfrm 225 mg/1.5 mL 225 mg (1.5 mL) subcut .COMPLEX 30 10/15/24 subcutaneous syringe (Ajov days #1.5 mL Syringe) famotidine 40 mg tablet 40 mg PO BID #60 tabs 11/05/24 metoclopramide HCl 10 mg tablet 10 mg PO Q6H PRN nausea and 11/23/24 (Reglan) vomiting #30 tabs Allergies Allergy/AdvReac Type Severity Reaction Status Date / Time lactose Allergy Intermediate Stomach Verified 11/23/24 03:12 Upset Sulfa (Sulfonamide Allergy Unknown UNKNOWN Verified 11/23/24 03:12 Antibiotics) [SULFA (SULFONAMIDE ANTIBIOTICS)] epinephrine Allergy Unknown Verified 11/23/24 03:12 gluten Allergy Diarrhea Verified 11/23/24 03:12 mushroom Allergy Unknown Verified 11/23/24 03:12 Review of Systems Review of Systems Yes all other systems are reviewed and are negative PMFSH Past Medical History Attestation statement: The following information was validated with the patient. Source: old records reviewed Medical History Frequent UTI Generalized anxiety disorder Snoring UTI (urinary tract infection) Paresthesia of both lower extremities Chronic abdominal pain COVID-19 Migraine POTS (postural orthostatic tachycardia syndrome) Surgical History History of esophagogastroduodenoscopy (EGD) History of wisdom tooth extraction Family History Family History Father Unknown family medical history Mental disorder Mother HTN (hypertension) Social History Social History Household Members: Family Housing: House Do you presently have visiting nurse or other home services: No Alcohol intake: never Patient Tobacco Use Status: Never used Tobacco Smoked in Last 30 Days: No e-Cigarette/Vaping Use: Former Use Use of substances other than those prescribed or required for medical reasons: No Advance Directives: No Advance Directives Information Provided: Yes Do you have a plan to hurt others: No Plan Patient : No service: No Current occupational status: employed Current occupation: [employer] [facility] [employer] Current occupational exposures/hazards: No Cognitive needs: No Hearing needs: No Vision needs: No Physical Exam ED Vital Signs: Vital Signs - 24 hr 11/23/24 03:11 11/23/24 05:17 11/23/24 07:23 Temperature 98 F 98.4 F 98.4 F Pulse Rate 123 H 106 H 104 H Respiratory Rate 20 14 15 Blood Pressure 99/77 95/67 98/68 Pulse Oximetry 100 97 98 Oxygen Delivery Method Room Air Room Air Room Air BMI result Body Mass Index 25.5 Appearance: Alert.?Oriented to person, place and time. No acute distress.?Normal affect.?? Neck: Normal inspection.? Neck supple.?? CVS: Heart sounds normal. Normal heart rate and rhythm.? Pulses normal.?? Respiratory: No respiratory distress.? Lung sounds clear to auscultation bilaterally?? Abdomen: Soft with right upper quadrant epigastric tenderness upon palpation. Negative Gastelum sign. No rebound tenderness at McBurney's point. Negative psoas sign. Negative Rovsing sign. No CVAT. Normoactive bowel sounds. No pulsatile mass.?? Skin: Skin warm and dry.? Normal skin color.? Extremities: No lower extremity edema.? Neuro: Moves all extremities spontaneously. Sensation intact bilaterally. Ambulates with normal steady gait. Medical Decision Making Medical Decision Making MDM Narrative: Patient is a 29-year-old female with past medical history of POTS, migraine, anxiety, chronic epigastric abdominal pain nausea and vomiting, most recent endoscopy and colonoscopy in March of 2024 with a normal EGD negative duodenal biopsy, colonoscopy revealing a 3 mm bleeding polyp with past showing an ulcerated inflammatory polyp, random colonic biopsy negative. Most recent office visit with . His son in September of 2023 thought symptoms may be secondary to gastroparesis, mast cell disorder, H pylori gastritis, IBS, small nerve fiber neuropathy, SLE was advised at that time to take mostly scheduled Bentyl, Pepcid 40 mg twice daily, and if bad flare pain may trial short course of prednisone or budesonide. 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 Muscle disorder ruled out through hematology and a negative bone marrow biopsy. Negative H pylori testing. Allergy testing has been positive for wheat shrimp and milk. Had a video capsule endoscopy scheduled but this was canceled on her. As well a gastric emptying study was ordered but not completed. Fecal procalectin and fecal elastase were not completed either. Diagnosis cyclic vomiting syndrome, chronic abdominal pain, POTS - was advised to do fecal studies as well as gastric emptying study but suspected at that time that GI symptoms or manifestations of POTS. By patient's account she did complete the gastric emptying study and stool studies concern her portal that these were negative. She is not certain which gastroenterology office she plans to continue working with. She received famotidine, Reglan, and Benadryl in the emergency department with improvement in her symptoms. She endorses a mild nausea but has been able to tolerate drinking water and feels as though her pain has resolved. She would like to be discharged home at this time which I feel is reasonable. Her abdominal exam is without peritoneal signs, level low suspicion for acute surgical abdomen. Given her multiple previous workups and no acute change to her symptoms, would defer additional imaging at this time. She would be best suited to follow-up with PCP/Gastroenterology, potentially further workup for management of her POTS. Urinalysis was obtained as well today and is without sign of infection. CBC is without leukocytosis, anemia, thrombocytopenia. No electrolyte derangement. No LIZETT. LFTs and lipase within normal range. HCG is negative. Feel that she is stable for discharge home and outpatient discussed strict return precautions. Differential Diagnosis Differential Diagnoses: The differential diagnosis associated with the presentation includes (See narrative above) Admission/Observation Consideration of admission/observation: Escalation of care including admission/observation considered (See narrative above ) Lab Data MDM Lab Attestation statement: I reviewed the patient's lab results. 11/23/24 03:39 11/23/24 03:39 Labs: Lab Results 11/23/24 11/23/24 Range/Units 03:39 09:54 WBC 8.4 (4.8-10.8) X10*3/uL RBC 3.94 L (4.20-5.50) X10*6/uL Hgb 12.4 (12.0-16.0) g/dl Hct 36.2 L (37.0-47.0) % MCV 91.9 (80.0-98.0) fL MCH 31.5 (27.0-33.0) pg MCHC 34.3 (31.0-35.0) g/dl RDW 12.7 (11.0-16.0) % Plt Count 219 (160-400) X10*3/uL MPV 10.9 (9.4-12.3) fL Immature Gran % (Auto) 0.4 (0.0-0.4) % Neut % (Auto) 70.8 (45-73) % Lymph % (Auto) 18.5 L (20-40) % [place] % (Auto) 7.5 (2-11) % Eos % (Auto) 2.6 (0-4) % Baso % (Auto) 0.2 (0-2) % Lymph # (Auto) 1.6 (1.2-4.9) X10*3/uL [place] # (Auto) 0.6 (0.1-1.2) X10*3/uL Eos # (Auto) 0.2 (0.0-0.4) X10*3/uL Baso # (Auto) 0.0 (0.0-0.2) X10*3/uL Abs Immat Gran (auto) 0.03 (0.00-0.03) X10*3/uL Absolute Neuts (auto) 6.0 (2.0-8.3) x10*3/uL Absolute Nucleated RBC 0.000 (0.0-0.012) X10*3/uL Nucleated RBC % (auto) 0.0 (0.0-0.2) /100WBC Sodium 139 (135-145) mmol/L Potassium 3.5 (3.3-5.1) mmol/L Chloride 109 H (96-108) mmol/L Carbon Dioxide 22 (22-29) mmol/L Anion Gap 12 (12-20) BUN 14 (9-16) mg/dL Creatinine 0.83 (0.5-1.4) mg/dL Estim Creat Clear Calc 82.4 Estimated GFR > 60 Random Glucose 104 (60-115) mg/dL Calcium 8.7 D (8.4-10.2) mg/dL Total Bilirubin 0.5 (0.0-1.0) mg/dL Direct Bilirubin 0.2 (0.0-0.5) mg/dL AST 19 (5-31) U/L ALT 15 (0-31) U/L Alkaline Phosphatase 59 (39-117) U/L Total Protein 7.1 (6.5-8.0) g/dL Albumin 4.0 (3.5-5.0) g/dL Lipase 13 (8-78) U/L Urine Color Yellow Urine Appearance Clear Urine pH 5.5 (5.0-9.0) Ur Specific [place] 1.025 (1.005-1.025) Urine Protein Negative (Neg-Trace) mg/dL Urine Glucose (UA) Negative (Negative) mg/dL Urine Ketones Trace (Negative) mg/dL Urine Blood Negative (Negative) Urine Nitrite Negative (Negative) Ur Leukocyte Esterase Negative (Negative) Urine Test NEGATIVE (NEGATIVE) Medications Administered Discontinued Medications Generic Name Dose Route Start Last Admin Trade Name Freq PRN Reason Stop Dose Admin Diphenhydramine HCl 25 mg 11/23/24 07:17 11/23/24 07:33 Diphenhydramine Hcl 50 Mg/Ml Vial IVPUSH 11/23/24 07:18 25 mg ONCE ONE Administration Sodium Chloride 1,000 mls @ 999 mls/hr 11/23/24 07:30 11/23/24 09:03 Ns IV 11/23/24 08:30 Infused .Q1H1M DANO Infusion Ketorolac Tromethamine 15 mg 11/23/24 07:17 11/23/24 07:33 Ketorolac Tromethamine 15 Mg/Ml Vial IVPUSH 11/23/24 07:18 15 mg ONCE ONE Administration Metoclopramide HCl 10 mg 11/23/24 07:17 11/23/24 07:33 Metoclopramide Hcl 10 Mg/2 Ml Vial IVPUSH 11/23/24 07:18 10 mg ONCE ONE Administration Discharge Plan Discharge Clinical Impression: Gastritis Qualifiers: Chronicity: acute Gastritis bleeding: without bleeding Patient Disposition: Home, Self-Care Instructions: Gastritis (ED) Additional Instructions: As discussed you may contact your gastroenterology provider for further follow- up as well as her PCP. It seems as though they were previously recommending that you have further management/control of your POTS as I thought these persistent symptoms may be secondary to this. Blood work was very reassuring today. Urine is without evidence of infection. You may return with any new or worsening symptoms or concerns. A prescription for Reglan has been sent to your pharmacy to help with nausea and vomiting. Prescriptions: New metoclopramide HCl [Reglan] 10 mg tablet 10 mg PO Q6H PRN (Reason: nausea and vomiting) Qty: 30 0RF No Action mirtazapine 15 mg tablet 7.5 mg PO BEDTIME 30 Days Qty: 15 6RF Ajovy Syringe 225 mg/1.5 mL syringe 225 mg subcut .COMPLEX 30 Days Qty: 1.5 6RF Rx Instructions: inject 225 mg subcut monthly; famotidine 40 mg tablet 40 mg PO BID Qty: 60 2RF ProAir RespiClick 90 mcg/actuation aerosol powdr breath activated 2 puff inhalation Q6H PRN (Reason: Shortness Of Breath) dicyclomine 10 mg capsule 10 mg PO QID PRN (Reason: Abdominal Discomfort) metoclopramide HCl [Reglan] 10 mg tablet 10 mg PO Q6H PRN (Reason: nausea and vomiting) Qty: 30 0RF ondansetron 4 mg tablet,disintegrating 4 mg PO Q8H PRN (Reason: nausea and vomiting) Qty: 10 0RF meclizine 25 mg tablet 25 mg PO QID Qty: 20 0RF amitriptyline 25 mg tablet 25 mg PO BEDTIME Qty: 90 3RF lorazepam 0.5 mg tablet 0.5 mg PO BID PRN (Reason: anxiety) 30 Days Qty: 30 0RF qbneahjkiu-rziefcgecfkey-baxg 50-325-40 mg capsule 1 cap PO Q4H PRN (Reason: pain) 30 Days Qty: 20 4RF fludrocortisone 0.1 mg tablet 0.05 mg PO DAILY Print Language: Mohawk
--- NOTE | 2024-11-23 09:03 | PC.NURSE ---
patient reports good relief of pain and GI discomfort after medications and IVF. MD aware.
[2024-11-23 10:02] LABS: Appearance Urine Clear; Color Urine Yellow; Glucose Urine UA Negative (Negative); Leukocyte Esterase Urine Negative (Negative); Nitrite Urine Negative (Negative); PH 5.5 (5.0-9.0); Specific Gravity - Urine 1.025 (1.005-1.025); Urine Blood Negative (Negative); Urine Ketones Trace mg/dL (Negative); Urine Protein Negative (Neg-Trace)
[2024-11-23 10:06] LABS: UPreg QC Valid YES; Urine Pregnancy NEGATIVE (NEGATIVE)
[2024-11-23 10:50] VITALS: BP 96/82; PULSE 94; RESP 18; TEMP 36.9; O2SAT 98
== END 2024-11-23 10:52 | disposition home or self-care (01) ==
PROVIDERS: Emergency Provider Emergency Medicine
DX: K29.00 Acute gastritis without bleeding (principal); R11.2 Nausea with vomiting, unspecified; Z87.440 Personal history of urinary (tract) infections
CPT/HCPCS: 36415; 80053; 81003; 81025; 82248; 83690; 85025; 96361; 96374; 96375; 99284; J1200; J1885; J2765

== ENCOUNTER 2025-02-27 14:59 | Outpatient (AMB) | payer OTHER, SELFPAY ==
--- NOTE | 2025-02-27 15:03 | MHC.OFFVIS ---
Vital Signs 02/27/25 15:04 Height 5 ft 1 in Weight 137 lb BMI 25.9 BP 122/74 Blood Pressure Location Rt brachial Position Sitting Intake Visit Reasons: Follow up Intake Note: Patient presents follow up Migraine Medication Allergies lactose Allergy (Intermediate, Verified 02/27/25 15:05) Stomach Upset Sulfa (Sulfonamide Antibiotics) [SULFA (SULFONAMIDE ANTIBIOTICS)] Allergy (Unknown, Verified 02/27/25 15:05) UNKNOWN epinephrine Allergy (Verified 02/27/25 15:05) Unknown gluten Allergy (Verified 02/27/25 15:05) Diarrhea mushroom Allergy (Verified 02/27/25 15:05) Unknown Medication List - Last Reconciled 02/27/25 by ISAAK Freed albuterol sulfate 90 mcg/actuation (ProAir RespiClick) 2 puffs inhalation Q6H PRN amitriptyline 25 mg PO BEDTIME nymilkkaoe-nbwgwlavozicw-qmbl 50-325-40 mg 1 cap PO Q4H PRN 30 days dicyclomine 10 mg PO QID PRN famotidine 40 mg PO BID fludrocortisone 0.05 mg PO DAILY fremanezumab-vfrm (Ajovy Syringe) inject 225 mg subcut monthly; 30 days lorazepam 0.5 mg PO BID PRN 30 days meclizine 25 mg PO QID metoclopramide HCl (Reglan) 10 mg PO Q6H PRN metoclopramide HCl (Reglan) 10 mg PO Q6H PRN mirtazapine 7.5 mg (1/2 x 15 mg) PO BEDTIME 30 days ondansetron 4 mg PO Q8H PRN HPI Comments Details: 30-yr-old female presents for f/u visit for migraine in setting of POTS, and 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 Pt states she is starting to feel better, however does still have some residual GI symptoms. [place] to be [place] [facility] [place] Did not tolerate Fludrocortsiine 0.1mg tab- states calls mood/behavior changes, however this may have also been due to concurrent bout of pneumonia and prednisone Tx She does try to take salty foods and increase her overall salt content- carries salt and salty snacks with her all times- though notes it is impossible for her to reach the 8 g sodium intake per day. Is doing better with increasing her daily fluid intake They have recently advised her to trial Mestinon- though she has not tried this yet, as she wanted to wait to talk to loss due to the known GI side effects Mestinon. She has continued to be followed by her glass bulb silverer, at [facility] [place]-the notes her current provider is leaving the practice- Dr Deras They advised her to resume her famotidine which she has been trying to do more consistently They have also advised her to retrial cromolyn-but this time start this once a day and slowly titrate up 4 times a day She notes decreased her current unless she eats something very spicy i are likely to trigger symptoms She clarifies her allergies, shrimp/shellfish, wheat, B milk protein, pistachio/almond, strawberries- though some of these are low-grade allergies, and was told she could try to eat cooked versions to reduce them to her diet. She has not seen GI in a while However notes that the vomiting, and severe diarrhea symptoms have decreased since we started her on amitriptyline- has not had a severe attack in month. In also notes that GI did not feel routine follow-up was indicated, as he felt her GI symptoms were secondary to her conditions. She continues to work and do her [employer] program through 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 With the time she was advised she could use the as-needed metoclopramide for headache pain- and eventually the headache break Since, she has not had a breakthrough severe migraine in the last month She is compliant with mirtazapine 7 5 mg and amitriptyline 25 mg q.h.s. and Ajovy 220 mg subQ Again is using Fioricet p.r.n. sparingly. [facility] Medical History Frequent UTI Generalized anxiety disorder Snoring UTI (urinary tract infection) Paresthesia of both lower extremities Chronic abdominal pain COVID-19 Migraine POTS (postural orthostatic tachycardia syndrome) Surgical History History of esophagogastroduodenoscopy (EGD) History of wisdom tooth extraction Family History Father Unknown family medical history Mental disorder Mother HTN (hypertension) Social History Household Members: Family Housing: House Do you presently have visiting nurse or other home services: No Alcohol intake: never Patient Tobacco Use Status: Never used Tobacco e-Cigarette/Vaping Use: Former Use service: No Current occupational status: employed Current occupation: [employer] Current occupational exposures/hazards: No Cognitive needs: No Hearing needs: No Vision needs: No Physical Exam Vital Signs: Last Vital Signs BP 122/74 02/27/25 15:04 BMI result Body Mass Index 25.9 Const General: cooperative and no acute distress Orientation/consciousness: patient oriented x3 Resp Effort & Inspection: normal respiratory effort and able to speak in complete sentences Neuro General: patient oriented x3 Cranial nerves: Yes CN's II-XII intact bilaterally Cognition (Neuro): normal cognition Psych Appearance: grossly normal Mental Status: mental status grossly normal Speech and movement: Normal speech and movement present Affect: normal affect Attitude: cooperative Assessment & Plan Assessment & Plan (1) Migraine with aura: Code(s): G43.109 - Migraine with aura, not intractable, without status migrainosus Category: Medical Qualifiers: Status migrainosus presence: without status migrainosus Intractability: not intractable Qualified Code(s): G43.109 - Migraine with aura, not intractable, without status migrainosus (2) POTS (postural orthostatic tachycardia syndrome): Code(s): I49.8 - Other specified cardiac arrhythmias Category: Medical (3) Nausea vomiting and diarrhea: Comment: Improved- ? Mast cell activation disorder Code(s): R11.2 - Nausea with vomiting, unspecified; R19.7 - Diarrhea, unspecified Category: Medical Plan We will complete school accommodation form when available. For migraine prevention: Continue Amitriptyline 25mg qhs- this may be helping vomiting s/s. Continue Ajovy 225mg q month. Continue Mirtazapine 7.5 mg q.h.s. for migraine prevention.. Previous tx trials- none other For acute migraine tx: Fioricet prn- sparingly. May use metoclopramide 10 mg every 4 hours p.r.n. nausea, vomiting, migraine headache. May adjunct metoclopramide Benadryl 25-50 mg every 6-8 hours as needed. Previous tx trials- Sumatriptan, Naratriptan, Rizatriptan- all caused diffuse burning skin sensation. Ubrelvy- helpful but denied by insurance d/t Ajovy use. Tx contraindications: Triptans- d/t PVCs. Fioricet when taking Corlanor. ? For sleep issues: HST- previously did not record enough data- consider repeating in f/u. ? 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 Concur with trial cromolyn as well as Mestinon Tx- however patient should start with 1 and slowly increased to full dose prior to initiating the other- so that she fully understand tolerance and effect/benefits. I would suggest starting with the cromolyn as she has recently resumed taking famotidine. Continue frequent fluids, salty snacks, increase salt with goal of 8 g per day, and paced activities. Refill methylphenidate as needed. [place] [facility] [place] Follow-up with glass bulb silverer-discussed alternate local allergy clinic if her current clinic can not continue to see her. ? Paresthesias: 03/01/24- ESR 10 WNL Previous BLE EMG/NCS- normal. Monitor. ? f/u in 6 months or sooner prn. Medications: Changed From metoclopramide HCl (Reglan) 10 mg PO Q6H PRN 30 tabs 0RF nausea and vomiting To metoclopramide HCl (Reglan) 10 mg PO Q6H 30 days PRN 30 tabs 1RF nausea and vomiting and migraine headache Refilled mirtazapine 7.5 mg (1/2 x 15 mg) PO BEDTIME 30 days 15 tabs 6RF Coding Level of Care Code Est Pt Level 4 (17020) Complex EM visit Add On G2211 Diagnoses Migraine with aura and without status migrainosus, not intractable G43.109 Status migrainosus presence: without status migrainosus Intractability: not intractable POTS (postural orthostatic tachycardia syndrome) I49.8 Nausea vomiting and diarrhea R11.2; R19.7
[2025-02-27 15:04] VITALS: BP 122/74; BMI 25.9
--- OUTSIDE RECORDS SUMMARY | 2025-02-27 16:30 | XMS_ITS | Encounter Summary ---
Author Organization [facility] Address [address] [place] [address] Care Team Providers Care Kiln Drawer Name Role Phone Unavailable Primary Care Provider Unavailabl e Encounter Details Date Type Department Care Team (Late st Contact Info) Description 03/22/2022 Dental Interim Note [facility] [address] [place] [address] Gayla Hathaway, DMD [address] [place] [address] Social History Tobacco Use Types Packs/Day Years Used Date Smoking Tobacco: Never Assessed Social Connections Answer Date Recorded Social Connections and Isolation 0 03/11/2022 Financial Resource Strain Answer Date R ecorded Financial Resource Strain 0 2021 Stress Answer Date Recorded Stress 0 03/11/2022 Physical Activity Answer Date Recorded Physical Activity 0 03/11/2022 Food Insecurity Answer Date Recorded Food 0 03/11/2022 Transportation Needs Answer Date Record ed Transportation 0 03/11/2022 Housing Stability Answer Date Recorded Housing 0 03/11/2022 Safety and Environment Answer Date Arie rded Safety 0 03/11/2022 Utilities Answer Date Recorded Utilities 0 03/11/2022 Employment Answer Date Recorded Employment 0 03/11/2022 Comments Unknown Sex and Gender Information Value Date Recorded Sex Assigned at Female 03/11/2022 12:58 PM PDT Legal Sex Female 11:36 AM PDT Gender Identity Female 03/11/2022 12:58 PM PDT Sexual Orientation Not on file COVID-19 Exposure Response Date Recorded In the last 10 days, have yo u been in contact with someone who was confirmed or suspected to have Coronavirus/COVID-19? No / Unsure 03/11/2022 3:05 PM EDT documented as of this encounter Plan of Treatment Upcoming Encounters Date Type Department Care Team (Late st Contact Info) Description 03/27/2025 3:00 PM EDT Office Visit [facility] [address] [place] [id number] Cara Esparza [address] [place] [address] documented as of this encounter Visit Diagnoses Not on filedocumented in this encounter
--- OUTSIDE RECORDS SUMMARY | 2025-02-27 16:30 | XMS_ITS | Encounter Summary ---
Author Organization [facility] Address [address] [place] [address] Care Team Providers Care Prototype Technician Name Role Phone Unavailable Primary Care Provider Unavailabl e Encounter Details Date Type Department Care Team (Late st Contact Info) Description 04/28/2022 Dental Interim Note [facility] [address] [place] [address] Gayla Hathaway, DMD [address] [place] [address] Social History Tobacco Use Types Packs/Day Years [...] suspected to have Coronavirus/COVID-19? No / Unsure 04/11/2022 3:38 PM EDT documented as of this encounter Plan of Treatment Upcoming Encounters Date Type Department Care Team (Late st Contact Info) Description 03/27/2025 3:00 PM EDT Office Visit [facility] [address] [place] [address] Cara Esparza [address] [place] [address] documented as of this encounter Visit Diagnoses Not on filedocumented in this encounter
--- OUTSIDE RECORDS SUMMARY | 2025-02-27 16:30 | XMS_ITS | Encounter Summary ---
Author Organization [facility] Address [address] [place] [address] Care Team Providers Care Groutman Name Role Phone Unavailable Primary Care Provider Unavailabl e Encounter Details Date Type Department Care Team (Late st Contact Info) Description 04/14/2022 Dental Interim Note [facility] [address] [place] [address] Gayla Hathaway, DMD [address] [place] [address] Social History Tobacco Use Types Packs/Day Years [...] Description 03/27/2025 3:00 PM EDT Office Visit [facility] [address] [place] [address] Cara Esparza [address] [place] [address] documented as of this encounter Visit Diagnoses Not on filedocumented in this encounter
--- OUTSIDE RECORDS SUMMARY | 2025-02-27 16:31 | XMS_ITS | Clinical Summary ---
Author Organization [facility] Address [address] [place] [address] Care Team Providers Care Svp Chief Marketing Officer Name Role Phone Unavailable Primary Care Provider Unavailabl e Source Comments PLEASE NOTE, if this patient is a minor, it may be UNLAWFUL to discuss sensitive information that is contained in these records (such as FAMILY PLANNING, MENTAL HEALTH or SUBSTANCE ABUSE) with the minor patient's parent or other person without the patient's specific authorization.[facility] Allergies Active Allergy Reactions Criticality Noted Date Comments Epinephrine 04/11/2022 BP goes low and heart rate goes up if too much epi given Medications MIRTAZAPINE ORAL Take by mouth Active amiodarone HCl (CORDARONE ORAL) Take by mouth Active fluoride, sodium, (CLINPRO 5000) 1.1 % psteIndications :Caries involving multiple surfaces of tooth [place] twice a day every day for 2 minutes.Expe ctorate but do not rinse,eat or drink for 30 minutes after using this. 112 g 3 04/11/2022 Active metoprolol tartrate (LOPRESSOR) 25 mg tablet Take 12.5 mg by mouth 2 (two) times daily 06/30/2022 Active Active Problems No known active problems Social History Tobacco Use Types Packs/Day Years Used Date Smoking Tobacco: Never Smokeless Tobacco: Never Tobacco Cessation:Counseling Given: Not Answered Alcohol Use Standard Drinks/Week Comments Never 0 (1 standard drink = 0.6 oz pur e alcohol) Social Connections Answer Date Recorded Connectedness 0 08/14/2024 Financial Resource Strain Answer Date R ecorded Financial Resource Strain 0 2021 Stress Answer Date Recorded Stress 0 03/11/2022 Physical Activity Answer Date Recorded Physical Activity 0 03/11/2022 Food Insecurity Answer Date Recorded Food 0 08/22/2024 Transportation Needs Answer Date Record ed Transportation 0 03/11/2022 Housing Stability Answer Date Recorded Housing 0 03/11/2022 Safety and Environment Answer Date Arie rded Safety 0 03/11/2022 Utilities Answer Date Recorded Utilities 0 03/11/2022 Employment Answer Date Recorded Stress 0 08/14/2024 Comments Unknown Sex and Gender Information Value Date Recorded Sex Assigned at Female 03/11/2022 12:58 PM PDT Legal Sex Female 11:36 AM PDT Gender Identity Female 03/11/2022 12:58 PM PDT Sexual Orientation Not on file Last Filed Vital Signs Vital Sign Reading Time Taken Comments Blood Pressure 107/76 08/01/2024 3:06 PM EDT Pulse 97 08/01/2024 3:06 PM EDT Temperature - - Respiratory Rate - - Oxygen Saturation - - Inhaled Oxygen Concentration - - Weight - - Height - - Body Mass Index - - Plan of Treatment Upcoming Encounters Date Type Department Care Team (Late st Contact Info) Description 03/27/2025 3:00 PM EDT Office Visit [facility] [address] [place] [address] Cara Esparza [address] [place] [address] Health Maintenance Due Date Last Done Comments Anxiety Screening 1993 HPV Screening 1993 Hepatitis C Screening 1993 Pap + HPV 1993 HIV Screening 02/02/2008 Relationship Safety Screening/Counseling 02/02/2008 Cervical Cancer Screening 2014 Pap Smear 2014 [id number]-30 ( season) 2024 12/07/2021, 12/19/2020, 11/22/2020 Imm-Influenza (#1) 2024 08/28/2023, 1 , 09/13/2021, Additional history exists Alcohol and Drug Screen 11/27/2024 Depression Annual Screen 11/27/2024 Dental Perio Charting 12/20/2024 12/18/2023 Tobacco Screening 08/01/2025 08/01/2024 Dental BW 08/03/2025 08/01/2024, 11/28, 03/07/2023, Additional history exists Dental Examination 08/03/2025 08/01/2024, 0 12/18/2023, 03/07/2023, Additional history exists Dental Prophy 08/03/2025 08/01/2024, 11/28, 03/07/2023, Additional history exists Dental FMX/Pano 04/13/2027 04/11/2022 Hypertension Screening (#1) 08/01/2027 Imm-DTaP/Tdap/Td (8 - Td or Tdap) 07/12/2032 07/12/2022, 05/10/2011, 07/15/2003, Additional history exists Imm-Hepatitis B Completed 06/06/2017, 12/28, 12/13/2016, Additional history exists Cervical Ablation/Cold-Knife Conization Discontinued Cervical Cryotherapy Discontinued Colposcopy Discontinued Endometrial Biopsy Discontinued Excision/Leep Discontinued HPV Genotyping Discontinued Vaginal Pap Discontinued Vulvoscopy Discontinued Procedures Procedure Name Priority Date/Time Associated Diagnosis Comments BITEWINGS - FOUR RADIOGRAPHIC IMAGES Routine 08/01/2024 3:00 PM EDT Caries PROPHYLAXIS - ADULT Routine 08/01/2024 3 :00 PM EDT Caries PERIODIC ORAL EVALUATION ESTABLISHED PATIENT Routine 08/01/2024 3:00 PM EDT Caries COMP PERIODONTAL EVALUATION - NEW/EST PATIENT Routine 12/18/2023 1:40 PM EST Caries of enamel (incipient) INTRAORAL - COMP SERIES OF RADIOGRAPHIC IMAGES Routine 04/11/2022 3:40 PM EDT Caries involving multiple surfaces of tooth Dental caries noted on examination from Last 3 Months or Most Recently Relevant to Health Maintenance Insurance [facility]
--- OUTSIDE RECORDS SUMMARY | 2025-02-27 16:31 | XMS_ITS | Data Portability ---
Author Organization [email or web address] [id number] Address [address] [place] [address] Assessment No assessment recorded. Plan of Treatment [...] Send Out Template NON DOT completed Adryan PERRY [employer] 08/29/2024 18:12:51 Imaging Results None recorded. Procedure [...] Diagnosis/Indication Diagnosis SNOMED-CT Code Diagnosis ICD10 Code Diagnosis Note [id number] [address] [place] [phone] 07/11/2020 12:45:21 07/11/2020 14:03:24 [id number] [address] [place] [address] 02/12/2020 17:49:36 02/12/2020 18:26:46 [id number] TORO AYALA MD [address] [place] [phone] 08/29/2024 17:31:45 08/29/2024 18:14:28 History and physical examination, occupation [id number] Z02.1 Health Concerns Section Related Observation LastModified by Organization Detai ls LastModified Time None Recorded Concern Status LastModified by Organization Details LastModified Time None Recorded Advance Directives Directive None Recorded Payers Encounter Date Sequence Insurance Name Policy Number Policy Leone Covered Member ID Leone Member ID Guarantor Name 02/12/2020 1 [facility] (MEDICAID O) [id number] Deanne Reid [id number] Deanne Reid 07/11/2020 1 [facility] NET PL[facility] (MEDICAID O) [id number] Deanne Reid [id number] Deanne Reid 08/29/2024 [facility] [[id number]] [facility] Deanne Reid OBGyn Episode No OBEpisode recorded.
== END 2025-02-27 16:01 | disposition home or self-care (01) ==
LOC: HO.HSMS 14:59
PROVIDERS: PCP Physician Assistant; Visit Provider Nurse Practitioner Family
DX: G43.109 Migraine with aura, not intractable, without status migrainosus (principal); I49.8 Other specified cardiac arrhythmias; R11.2 Nausea with vomiting, unspecified; R19.7 Diarrhea, unspecified
CPT/HCPCS: 99214

== ENCOUNTER → 2025-02-27 14:59 | Outpatient (BNVA) | payer OTHER, SELFPAY | PROVIDERS: PCP Physician Assistant; Visit Provider Nurse Practitioner Family ==

== ENCOUNTER 2025-04-30 15:01 | Outpatient (AMB) | payer OTHER, SELFPAY ==
--- NOTE | 2025-04-30 15:04 | A.OFFPC_ITS ---
Vital Signs 04/30/25 15:07 Height 5 ft 1 in Weight 134 lb 8 oz BMI 25.4 BP 94/76 Blood Pressure Location Rt brachial Position Sitting Respiration 12 Pulse 107 H Pulse Source Pulse Oximeter Temp 98.1 F Temp Source Oral Pulse Oximetry (%) 97 Oxygen Delivery Method Room Air Intake Visit Reasons: she feels breast tightless Intake Note: Right breast tenderness. Had a large lump and sore breast about a month ago. Sxs better since.Leslie ASP WEB DEVELOPER ordered imaging, but has not been in contact with pt to schedule. Requesting pcp to take over prescribing dicyclomine since GI is leaving, and prefers not to go to GI anymore. Animal Doctor Required: No Allergies lactose Allergy (Intermediate, Verified 04/30/25 15:13) Stomach Upset Sulfa (Sulfonamide Antibiotics) [SULFA (SULFONAMIDE ANTIBIOTICS)] Allergy (Unknown, Verified 04/30/25 15:13) UNKNOWN epinephrine Allergy (Verified 04/30/25 15:13) Unknown gluten Allergy (Verified 04/30/25 15:13) Diarrhea mushroom Allergy (Verified 04/30/25 15:13) Unknown Medication List - Last Reconciled 04/30/25 by Mini Wilson PA-C albuterol sulfate 90 mcg/actuation (ProAir RespiClick) 2 puffs inhalation Q6H PRN amitriptyline 25 mg PO BEDTIME budesonide 180 mcg/actuation (Pulmicort Flexhaler) 2 inhalations inhalation BID etyvrejdce-sdludkmzmkrdf-mhkb 50-325-40 mg 1 cap PO Q4H PRN 30 days dicyclomine 10 mg PO QID PRN dihydroxyacetone 5% mL topical famotidine 40 mg PO BID fremanezumab-vfrm (Ajovy Syringe) inject 225 mg subcut monthly; 30 days lorazepam 0.5 mg PO BID PRN 30 days meclizine 25 mg PO QID metoclopramide HCl (Reglan) 10 mg PO Q6H PRN mirtazapine 7.5 mg (1/2 x 15 mg) PO BEDTIME 30 days ondansetron 4 mg PO Q8H PRN Tobacco use date assessed: 04/30/25 Dental Screening Dental Screen Date: 04/30/25 Did you have a dental visit in the last 12 months?: Yes Did you have a dental problem in the last 6 months where you did not have access to dental care?: No Was dental information given to patient?: Patient has dentist HPI she feels breast tightless HPI Details Patient is a 30-year-old female who presents today for an acute problem visit. She states last month she noticed enlargement of her right breast. She says that it felt very full and tender. She had never had anything like this before. She says that she actually saw her bottom turning lathe tender who ordered a diagnostic bilateral mammogram and ultrasound. She states that her bottom turning lathe tender works at [employer] and try to get the imaging booked at [facility] [place] however, known reach out to her in regards to this. She says that there were some insurance issues with this and that she had to fill out paperwork. Ultimately, the imaging never got completed. Patient states that when the symptoms 1st really started she noticed a larger lump. She states since this time her right breast has become less dense and the lump is smaller. She says that she notices multiple lumps mostly around the areola and in the 12 o'clock position. She says that she has had fibrocystic breasts in the past and never paid much attention but she never experienced it like this. There was no nipple drainage or swollen lymph nodes. Her left breast was intermittently tender but she thought more related to her hormones. GI: States that she is overall feeling stable. Her GI is leaving [employer] and she asks that I take over with the amitriptyline and Bentyl prescription. CV: Tyson has been stable. [facility] Medical History Frequent UTI Generalized anxiety disorder Snoring UTI (urinary tract infection) Paresthesia of both lower extremities Chronic abdominal pain COVID-19 Migraine POTS (postural orthostatic tachycardia syndrome) Surgical History History of esophagogastroduodenoscopy (EGD) History of wisdom tooth extraction Family History Father Unknown family medical history Mental disorder Mother HTN (hypertension) Social History Household Members: Family Housing: House Do you presently have visiting nurse or other home services: No Alcohol intake: never Patient Tobacco Use Status: Never used Tobacco e-Cigarette/Vaping Use: Former Use service: No Current occupational status: employed Current occupation: [employer] [place] Current occupational exposures/hazards: No Cognitive needs: No Hearing needs: No Vision needs: No Questionnaire Thrive Questionnaire Date Thrive assessed: 08/21/24 I am a: Patient What is your living situation today?: I have a steady place to live Within the past 12 months, did the food you bought not last and you didn't have the money to get more?: Never true Within the past 12 months, did you worry whether your food would run out before you got money to buy more?: Never true Do you have trouble paying for medicines?: Yes Do you have trouble getting transportation to medical appointments?: No Do you have trouble paying your heating and electricity bill?: No Do you have trouble taking care of your child, family member or friend?: No Do you have trouble with day-to-day activities such as bathing, preparing meals, shopping, managing finances, etc.?: No Are you currently unemployed and looking for a job?: No Are you interested in more education?: No Please select the resources that you would like help with: None Currently or been in a relationship where the following occur: No concerns reported THRIVE Score: 0 AUDIT C Alcohol Use Questionnaire (AUDIT-C) 1. How often do you have a drink containing alcohol?: Never 3. How often do you have six or more drinks on one occasion?: Never Total Score: 0 ABIMBOLA-7 AMB Questionnaire ABIMBOLA-7 Date ABIMBOLA - 7 assessed: 03/04/24 Source: Developed by Drs. Ivná Payne, Tracy Grady, Rajeev Estrada and colleagues, with an educational thuy from [employer]. Physical exam (Primary Care) Vital Signs: Last Vital Signs Temp 98.1 F 04/30/25 15:07 Pulse 107 H 04/30/25 15:07 Resp 12 04/30/25 15:07 BP 94/76 04/30/25 15:07 Pulse Ox 97 04/30/25 15:07 Oxygen Delivery Method Room Air 04/30/25 15:07 BMI result Body Mass Index 25.4 Tobacco/Smoking Status: Tobacco use Status Tobacco use date assessed 06/05/24 04/30/25 15:10 Patient Tobacco Use Status Never used Tobacco 04/30/25 15:10 e-Cigarette/Vaping Use Former Use 04/30/25 15:10 Thrive Assessment: Date of Thrive Assessment Date Thrive assessed 08/21/24 04/30/25 15:10 Currently or been in a relationship where the following occur: No concerns reported Const Orientation/consciousness: patient oriented x3 HENMT Ears: hearing grossly normal bilaterally Neck Thyroid: Thyroid normal Lymphatic: no lymphadenopathy noted Chest Other: right breast pain throughout exam, increased discomfort in the 12 o'clock position and surround areola. ? lump 12 o'clock. left breast no lumps or pain appreciated. Breast/axilla palpation: normal palpation of the axillae Resp Auscultation: clear to auscultation bilaterally Cardio Rate: regular rate Rhythm: regular rhythm Heart sounds: S1 normal heart sound present and S2 normal heart sound present GI Inspection: Yes normal to inspection Palpation (GI): Soft to palpation and Other GI palpation findings present (nontender, no cva tenderness) Auscultation: normoactive bowel sounds Rectal Exam - Female: deferred Skin General skin exam: no rashes or lesions noted Neuro General: patient oriented x3, gait normal and no focal motor deficits Coding Level of Care Code Est Pt Level 4 (28920) Complex EM visit Add On G2211 Diagnoses Breast pain, right N64.4 Painful lumpy right breast N64.4; N63.10 Chronic abdominal pain R10.9; G89.29 POTS (postural orthostatic tachycardia syndrome) I49.8 Assessment & Plan Assessment & Plan (1) Breast pain, right: Code(s): N64.4 - Mastodynia Category: Medical Plan: Diagnostic testing ordered (2) Painful lumpy right breast: Code(s): N64.4 - Mastodynia; N63.10 - Unspecified lump in the right breast, unspecified quadrant Category: Medical Plan: As above (3) Chronic abdominal pain: Code(s): R10.9 - Unspecified abdominal pain; G89.29 - Other chronic pain Category: Medical Plan: Stable. Refilled today. (4) POTS (postural orthostatic tachycardia syndrome): Code(s): I49.8 - Other specified cardiac arrhythmias Category: Medical Plan: [facility]. Orders: Orders MM diagnostic mammo BI Today N63.10 - Unspecified lump in the right breast, unspecified quadrant, N64.4 - Mastodynia US breast RT complete Today N63.10 - Unspecified lump in the right breast, unspecified quadrant, N64.4 - Mastodynia Medications: New dicyclomine 10 mg PO QID PRN 90 caps 3RF Abdominal Discomfort
[2025-04-30 15:07] VITALS: BP 94/76; PULSE 107; RESP 12; TEMP 36.7; O2SAT 97; BMI 25.4
--- OUTSIDE RECORDS SUMMARY | 2025-04-30 15:10 | XMS_ITS | Encounter Summary ---
Author Organization [facility] Address [address] [place] [address] Care Team Providers Care Program Technician Name Role Phone Unavailable Primary Care Provider Unavailabl e Encounter Details Date Type Department Care Team (Late st Contact Info) Description 03/22/2022 Dental Interim Note [facility] [address] [place] [address] Gayla Hathaway, DMD [address] [place] [address] Social History Tobacco Use Types Packs/Day Years [...] Care Team (Late st Contact Info) Description 10/10/2025 3:00 PM EST Office Visit [facility] [address] [place] [address] Cara Esparza [address] [place] [address] documented as of this encounter Visit Diagnoses Not on filedocumented in this encounter
== END 2025-04-30 15:29 | disposition home or self-care (01) ==
LOC: HO.HMCFM 15:02
PROVIDERS: PCP Physician Assistant; Visit Provider Physician Assistant
DX: N64.4 Mastodynia (principal); N63.10 Unspecified lump in the right breast, unspecified quadrant; R10.9 Unspecified abdominal pain; G89.29 Other chronic pain; I49.8 Other specified cardiac arrhythmias

== ENCOUNTER → 2025-04-30 15:01 | Outpatient (BNVA) | payer OTHER, SELFPAY | PROVIDERS: PCP Physician Assistant; Visit Provider Physician Assistant | DX: Z13.89 Encounter for screening for other disorder (principal) ==

== ENCOUNTER 2025-07-23 15:33 | Outpatient (REF) | payer OTHER, SELFPAY ==
[2025-07-23 19:40] LABS: Appearance Urine Cloudy; Glucose Urine UA Negative (Negative); PH 6.0 (5.0-9.0); Specific Gravity - Urine 1.025 (1.005-1.025)
== END 2025-07-23 15:34 | disposition home or self-care (01) ==
LOC: HO.LAB 15:33
PROVIDERS: PCP Physician Assistant; Visit Provider Physician Assistant
DX: Z00.00 Encounter for general adult medical examination without abnormal findings (principal); I49.8 Other specified cardiac arrhythmias; G43.109 Migraine with aura, not intractable, without status migrainosus; D64.9 Anemia, unspecified; R10.9 Unspecified abdominal pain; G89.29 Other chronic pain; F41.1 Generalized anxiety disorder
CPT/HCPCS: 81003; 96127

== ENCOUNTER 2025-07-23 15:33 | Outpatient (AMB) | payer OTHER, SELFPAY ==
--- NOTE | 2025-07-23 15:35 | A.OFFPC_ITS ---
Vital Signs 07/23/25 15:38 Height 5 ft 1 in Weight 139 lb 2 oz BMI 26.3 BP 100/66 Blood Pressure Location Lt brachial Position Sitting Respiration 12 Pulse 90 Pulse Source Pulse Oximeter Temp 97.1 F Temp Source Oral Pulse Oximetry (%) 98 Oxygen Delivery Method Room Air Intake Visit Reasons: Physical Intake Note: CPE. Patient c/o burning when urinating and frequency x 3 times. Attic Blower Required: No Allergies lactose Allergy (Intermediate, Verified 07/23/25 15:36) Stomach Upset Sulfa (Sulfonamide Antibiotics) (SULFA (SULFONAMIDE ANTIBIOTICS)) Allergy (Unknown, Verified 07/23/25 15:36) UNKNOWN epinephrine Allergy (Verified 07/23/25 15:36) Unknown gluten Allergy (Verified 07/23/25 15:36) Diarrhea mushroom Allergy (Verified 07/23/25 15:36) Unknown Medication List - Last Reconciled 07/23/25 by Mini Wilson PA-C albuterol sulfate 90 mcg/actuation (ProAir RespiClick) 2 puffs inhalation Q6H PRN amitriptyline 25 mg PO BEDTIME budesonide 180 mcg/actuation (Pulmicort Flexhaler) 2 inhalations inhalation BID shusdlqjwo-ewgkjnfqjwcpq-uzxo 50-325-40 mg 1 cap PO Q4H PRN 30 days dicyclomine 10 mg PO QID PRN dihydroxyacetone 5% mL topical famotidine 40 mg PO BID fremanezumab-vfrm (Ajovy Syringe) 225 mg (1.5 mL) subcut Q30D 30 days lorazepam 0.5 mg PO BID PRN 30 days meclizine 25 mg PO QID metoclopramide HCl (Reglan) 10 mg PO Q6H PRN mirtazapine 7.5 mg (1/2 x 15 mg) PO BEDTIME 30 days ondansetron 4 mg PO Q8H PRN Tobacco use date assessed: 07/23/25 Dental Screening Dental Screen Date: 07/23/25 Did you have a dental visit in the last 12 months?: Yes Did you have a dental problem in the last 6 months where you did not have access to dental care?: No Was dental information given to patient?: Patient has dentist HPI Physical HPI Details Patient is a 30-year-old female who presents today for a physical exam. She has a significant past medical history of anemia, pots, migraines, chronic abdominal pain, generalized anxiety disorder and ADHD. GI: Stable. On dicyclomine, famotidine, Zofran p.r.n., Reglan p.r.n. and amitriptyline. Neuro: On Ajovy Uro: Gets frequent UTIs. We had thinks that she could have on today. Normally treated with Cipro. Pocket Stitcher: UTD w/ tristen [facility] Medical History Frequent UTI Generalized anxiety disorder Snoring UTI (urinary tract infection) Paresthesia of both lower extremities Chronic abdominal pain COVID-19 Migraine POTS (postural orthostatic tachycardia syndrome) Surgical History History of esophagogastroduodenoscopy (EGD) History of wisdom tooth extraction Family History Father Unknown family medical history Mental disorder Mother HTN (hypertension) Social History (Updated 04/30/25 @ 15:14 by Gretchen Mcelroy CMA) Household Members: Family Housing: House Do you presently have visiting nurse or other home services: No Alcohol intake: never Patient Tobacco Use Status: Never used Tobacco e-Cigarette/Vaping Use: Former Use service: No Current occupational status: employed Current occupation: [employer] Current occupational exposures/hazards: No Cognitive needs: No Hearing needs: No Vision needs: No Questionnaire PHQ-9 Over the last 2 weeks, how often have you been bothered by any of the following problems? 1. Little interest or pleasure in doing things: not at all 2. Feeling down, depressed, or hopeless: not at all 3. Trouble falling or staying asleep, or sleeping too much: not at all 4. Feeling tired or having little energy: not at all 5. Poor appetite or overeating: not at all 6. Feeling bad about yourself - or that you are a failure or have let yourself or your family down: not at all 7. Trouble concentrating on things, such as reading the newspaper or watching television: not at all 8. Moving or speaking so slowly that other people could have noticed. Or the opposite - being so fidgety or restless that you have been moving around a lot more than usual: not at all 9. Thoughts that you would be better off or of hurting yourself in some way: not at all Total score: 0 Depression Screening Interpretation: Negative Depression Screening Done: Yes 27076 - PHQ-9 Billing: Yes Source: Developed by Drs. Iván Payne, Tracy Grady, Rajeev Estrada and colleagues, with an educational thuy from [employer]. Thrive Questionnaire Date Thrive assessed: 07/23/25 I am a: Patient What is your living situation today?: I have a steady place to live Within the past 12 months, did the food you bought not last and you didn't have the money to get more?: Never true Within the past 12 months, did you worry whether your food would run out before you got money to buy more?: Never true Do you have trouble paying for medicines?: No Do you have trouble getting transportation to medical appointments?: No Do you have trouble paying your heating and electricity bill?: No Do you have trouble taking care of your child, family member or friend?: No Do you have trouble with day-to-day activities such as bathing, preparing meals, shopping, managing finances, etc.?: No Are you currently unemployed and looking for a job?: No Are you interested in more education?: No Please select the resources that you would like help with: None Currently or been in a relationship where the following occur: No concerns reported THRIVE Score: 0 AUDIT C Alcohol Use Questionnaire (AUDIT-C) 1. How often do you have a drink containing alcohol?: Never 3. How often do you have six or more drinks on one occasion?: Never Total Score: 0 ABIMBOLA-7 AMB Questionnaire ABIMBOLA-7 Date ABIMBOLA - 7 assessed: 07/23/25 Feeling nervous, anxious, or on edge: 0 = Not at all Not being able to stop or control worryin = Not at all Worrying too much about different things: 0 = Not at all Trouble relaxin = Several days Being so restless that it is hard to sit still: 0 = Not at all Becoming easily annoyed or irritable: 1 = Several days Feeling afraid as if something awful might happen: 1 = Several days Total ABIMBOLA-7 score (0-4 normal; 5-9 mild; 10-14 moderate; 15-21 severe): 3 Source: Developed by Drs. Iván Payne, Tracy Grady, Rajeev Estrada and colleagues, with an educational thuy from [employer]. ABIMBOLA-7 Assessment Billing ABIMBOLA-7 Assessment Tool: ABIMBOLA-7 Assessment 47590 Physical exam (Primary Care) Vital Signs: Last Vital Signs Temp 97.1 F 07/23/25 15:38 Pulse 90 07/23/25 15:38 Resp 12 07/23/25 15:38 BP 100/66 07/23/25 15:38 Pulse Ox 98 07/23/25 15:38 Oxygen Delivery Method Room Air 07/23/25 15:38 BMI result Body Mass Index 26.3 Tobacco/Smoking Status: Tobacco use Status Tobacco use date assessed 07/23/25 07/23/25 15:38 Patient Tobacco Use Status Never used Tobacco 07/23/25 15:38 e-Cigarette/Vaping Use Former Use 07/23/25 15:38 PHQ-9: PHQ-9 Score PHQ-9: Total score 0 07/23/25 15:38 Depression Screening Interpretation: Negative Thrive Assessment: Date of Thrive Assessment Date Thrive assessed 07/23/25 07/23/25 15:38 Currently or been in a relationship where the following occur: No concerns reported Const Orientation/consciousness: patient oriented x3 HENMT Ears: hearing grossly normal bilaterally and TM's normal bilaterally General nose exam: No nasal polyps present Face and sinus: Yes sinuses nontender Mouth: Normal oral and palatal mucosa present Eyes Pupils: Equal, round and reactive pupils present EOM: EOMs intact bilaterally Neck Neck: Yes full ROM and Yes no lymphadenopathy Thyroid: Thyroid normal Chest Chest palpation & inspection: normal inspection of the chest Resp Auscultation: clear to auscultation bilaterally Cardio Rate: regular rate Rhythm: regular rhythm Heart sounds: S1 normal heart sound present and S2 normal heart sound present Peripheral pulses: Peripheral pulses 2+ throughout GI Other: Soft, nontender Auscultation: normal bowel sounds Rectal Exam - Female: deferred General: Yes no CVA tenderness Back/Spine/Pelvis Other: Nontender Back: no CVA tenderness Skin General skin exam: no rashes or lesions noted Neuro General: patient oriented x3, gait normal, CN's II-XI intact bilaterally and deep tendon reflexes 2+ bilaterally Cranial nerves: Yes Equal, round and reactive pupils present Motor exam (neuro): 5/5 motor strength present throughout Sensory Exam: double simultaneous stimulation for sensation normal Coordination: sadwup-rd-goss test normal and Romberg test negative Extrem General: Yes normal to inspection and Yes full ROM Psych Affect: normal affect Attitude: cooperative Thought process: Normal thought process present Thought content: Normal thought content present Insight: Good insight present (Psych) Judgement: Good judgement present (Psych) Coding Level of Care Code Est Pt Prev Care 18-39y(24320) Diagnoses Routine general medical examination at a health care facility Z00.00 POTS (postural orthostatic tachycardia syndrome) I49.8 Migraine with aura and without status migrainosus, not intractable G43.109 Intractability: not intractable Status migrainosus presence: without status migrainosus Anemia D64.9 Chronic abdominal pain R10.9; G89.29 Generalized anxiety disorder F41.1 Additional Codes ABIMBOLA-7 Assessment Billing - ABIMBOLA-7 Assessment Tool: ABIMBOLA-7 Assessment 63752 ([id number]) PHQ-9 - 36884 - PHQ-9 Billing: Yes ([id number]) Assessment & Plan Assessment & Plan (1) Routine general medical examination at a health care facility: Code(s): Z00.00 - Encounter for general adult medical examination without abnormal findings Plan: Health maintenance reviewed. Labs ordered. We will follow up pending test results. (2) POTS (postural orthostatic tachycardia syndrome): Code(s): I49.8 - Other specified cardiac arrhythmias Category: Medical Plan: Stable. Continue current regimen (3) Migraine with aura: Code(s): G43.109 - Migraine with aura, not intractable, without status migrainosus Category: Medical Qualifiers: Intractability: not intractable Status migrainosus presence: without status migrainosus Qualified Code(s): G43.109 - Migraine with aura, not intractable, without status migrainosus Plan: Currently well-controlled (4) Anemia: Code(s): D64.9 - Anemia, unspecified Category: Medical Plan: We will monitor. Labs ordered (5) Chronic abdominal pain: Code(s): R10.9 - Unspecified abdominal pain; G89.29 - Other chronic pain Category: Medical Plan: Stable now that she avoids dairy as well. Improved with the amitriptyline (6) Generalized anxiety disorder: Code(s): F41.1 - Generalized anxiety disorder Category: Medical Plan: Currently controlled. Orders: Orders Complete Blood Count Auto Diff 07/23/25 D64.9 - Anemia, unspecified, F41.1 - Generalized anxiety disorder, G43.109 - Migraine with aura, not intractable, without status migrainosus, G89.29 - Other chronic pain, I49.8 - Other specified cardiac arrhythmias, R10.9 - Unspecified abdominal pain, Z00.00 - Encounter for general adult medical examination without abnormal findings Comprehensive [place]. Panel Fast 07/23/25 D64.9 - Anemia, unspecified, F41.1 - Generalized anxiety disorder, G43.109 - Migraine with aura, not intractable, without status migrainosus, G89.29 - Other chronic pain, I49.8 - Other specified cardiac arrhythmias, R10.9 - Unspecified abdominal pain, Z00.00 - Encounter for general adult medical examination without abnormal findings TSH reflex Free T4 07/23/25 D64.9 - Anemia, unspecified, F41.1 - Generalized anxiety disorder, G43.109 - Migraine with aura, not intractable, without status migrainosus, G89.29 - Other chronic pain, I49.8 - Other specified cardiac arrhythmias, R10.9 - Unspecified abdominal pain, Z00.00 - Encounter for general adult medical examination without abnormal findings Lipid Panel 07/23/25 D64.9 - Anemia, unspecified, F41.1 - Generalized anxiety disorder, G43.109 - Migraine with aura, not intractable, without status migrainosus, G89.29 - Other chronic pain, I49.8 - Other specified cardiac arrhythmias, R10.9 - Unspecified abdominal pain, Z00.00 - Encounter for general adult medical examination without abnormal findings UA CC w/rflx Micro + Cult 07/23/25 D64.9 - Anemia, unspecified, F41.1 - Generalized anxiety disorder, G43.109 - Migraine with aura, not intractable, without status migrainosus, G89.29 - Other chronic pain, I49.8 - Other specified cardiac arrhythmias, R10.9 - Unspecified abdominal pain, R30.0 - Dysuria, Z00.00 - Encounter for general adult medical examination without abnormal findings Vitamin B12 and Folate 08/27/25 D64.9 - Anemia, unspecified, F41.1 - Generalized anxiety disorder, G43.109 - Migraine with aura, not intractable, without status migrainosus, G89.29 - Other chronic pain, I49.8 - Other specified cardiac arrhythmias, R10.9 - Unspecified abdominal pain, Z00.00 - Encounter for general adult medical examination without abnormal findings Vitamin A 07/23/25 D64.9 - Anemia, unspecified, F41.1 - Generalized anxiety disorder, G43.109 - Migraine with aura, not intractable, without status migrainosus, G89.29 - Other chronic pain, I49.8 - Other specified cardiac arrhythmias, R10.9 - Unspecified abdominal pain, Z00.00 - Encounter for general adult medical examination without abnormal findings Vitamin B1 07/23/25 D64.9 - Anemia, unspecified, F41.1 - Generalized anxiety disorder, G43.109 - Migraine with aura, not intractable, without status migrainosus, G89.29 - Other chronic pain, I49.8 - Other specified cardiac arrhythmias, R10.9 - Unspecified abdominal pain, Z00.00 - Encounter for general adult medical examination without abnormal findings Hemoglobin A1c 07/23/25 D64.9 - Anemia, unspecified, F41.1 - Generalized anxiety disorder, G43.109 - Migraine with aura, not intractable, without status migrainosus, G89.29 - Other chronic pain, I49.8 - Other specified cardiac arrhythmias, R10.9 - Unspecified abdominal pain, R73.01 - Impaired fasting glucose, Z00.00 - Encounter for general adult medical examination without abnormal findings Ferritin 07/23/25 D64.9 - Anemia, unspecified, F41.1 - Generalized anxiety disorder, G43.109 - Migraine with aura, not intractable, without status migrainosus, G89.29 - Other chronic pain, I49.8 - Other specified cardiac arrhythmias, R10.9 - Unspecified abdominal pain, Z00.00 - Encounter for general adult medical examination without abnormal findings Magnesium 07/23/25 D64.9 - Anemia, unspecified, F41.1 - Generalized anxiety disorder, G43.109 - Migraine with aura, not intractable, without status migrainosus, G89.29 - Other chronic pain, I49.8 - Other specified cardiac arrhythmias, R10.9 - Unspecified abdominal pain, Z00.00 - Encounter for general adult medical examination without abnormal findings IRON PROFILE 07/23/25 D64.9 - Anemia, unspecified, F41.1 - Generalized anxiety disorder, G43.109 - Migraine with aura, not intractable, without status migrainosus, G89.29 - Other chronic pain, I49.8 - Other specified cardiac arrhythmias, R10.9 - Unspecified abdominal pain, Z00.00 - Encounter for general adult medical examination without abnormal findings Vitamin D 25-OH Total 07/23/25 D64.9 - Anemia, unspecified, F41.1 - Generalized anxiety disorder, G43.109 - Migraine with aura, not intractable, without status migrainosus, G89.29 - Other chronic pain, I49.8 - Other specified cardiac arrhythmias, R10.9 - Unspecified abdominal pain, Z00.00 - Encounter for general adult medical examination without abnormal findings Zinc 07/23/25 D64.9 - Anemia, unspecified, F41.1 - Generalized anxiety disorder, G43.109 - Migraine with aura, not intractable, without status migrainosus, G89.29 - Other chronic pain, I49.8 - Other specified cardiac arrhythmias, R10.9 - Unspecified abdominal pain, Z00.00 - Encounter for general adult medical examination without abnormal findings Medications: New ciprofloxacin HCl (Cipro) 500 mg PO Q12H 14 tabs 0RF
[2025-07-23 15:38] VITALS: BP 100/66; PULSE 90; RESP 12; TEMP 36.2; O2SAT 98; BMI 26.3
--- OUTSIDE RECORDS SUMMARY | 2025-07-23 16:46 | XMS_ITS | Encounter Summary ---
Author Organization [facility] Address [address] [place] [address] Care Team Providers Care Graphic Coordinator Name Role Phone Unavailable Primary Care Provider Unavailabl e Encounter Details Date Type Department Care Team (Late st Contact Info) Description 04/28/2022 Dental Interim Note Caring [facility] [address] [place] [address] Gayla Hathaway, DMD [address] [place] [address] Social History Tobacco Use Types Packs/Day Years [...] Team (Late st Contact Info) Description 10/10/2025 2:20 PM EST Office Visit [facility] [address] [place] [phone] Tashi Hart, [facility] [address] [place] [address] documented as of this encounter Visit Diagnoses Not on filedocumented in this encounter
--- OUTSIDE RECORDS SUMMARY | 2025-07-23 16:46 | XMS_ITS | Clinical Summary ---
Author Organization [facility] Address [address] [place] [address] Phone Care Team Providers Care Weed Cutter Name Role Phone Mini Wilson Primary Care Provider [phone] Allergies Active Allergy Reactions Criticality Noted Date Comments Milk 08/15/2024 cows milk Shellfish Containing Products Angioedema,Diarrhea,GI Upset,Nausea and/or Vomiting 08/15/2024 Tree Nuts Diarrhea 08/15/2024 Wheat 08/15/2024 Medications mirtazapine (REMERON) 15 MG tablet Take 15 mg by mouth nightly at bedtime. Active sodium chloride 1 gram tablet Take 1 tablet (1 g total) by mouth 3 (three) times a day. 270 tablet 3 1 Active amitriptyline (ELAVIL) 25 MG tablet Take 25 mg by mouth nightly at bedtime. 4 Active azelastine (ASTELIN) 137 mcg (0.1 %) nasal spray 2 sprays by Nasal route as needed. 4 Active budesonide/formo terol fumarate (BUDESONIDE-FORM OTEROL INHL) 3 Active butalbital-aceta minophen-caff 50-325-40 mg per capsule TAKE 1 CAPSULE BY MOUTH EVERY 4 HOURS NEEDED FOR PAIN *FOR 30 DAYS* 4 Active dicyclomine (BENTYL) 10 MG capsule Active famotidine (PEPCID) 40 MG tablet 0 Refills, Maintenance, 03/13/24 11:39:00 EDT, Partial fill upon patient request if the prescription is for a schedule II opioid drug. 4 Active AJOVY SYRINGE 225 mg/1.5 mL subcutaneous syringe 2 Active LORazepam (ATIVAN) 0.5 MG tablet Take 0.5 mg by mouth 2 (two) times a day. 4 Active riboflavin, vitamin B2, (,VITAMIN B-2,) 100 mg Tab Take by mouth. 4 Active fludrocortisone (FLORINEF) 0.1 mg tabletIndication s:POTS (postural orthostatic tachycardia syndrome),Nausea TAKE 1 TABLET BY MOUTH EVERY DAY 90 tablet 4 Active Additional Information Patient not taking.Reported on 12/12/2024 levocetirizine (XYZAL) 5 MG tablet Take 5 mg by mouth every evening. Active pyRIDostigmine (MESTINON) 60 mg tabletIndication s:POTS (postural orthostatic tachycardia syndrome) TAKE 1 TABLET BY MOUTH TWICE A DAY *INCREASE DIRECTED* 60 tablet 3 5 Active Active Problems Problem Noted Date Diagnosed Date POTS (postural orthostatic tachycardia syndrome) 10/12/2020 Encounters Date Type Department Care Team Description 07/01/2025 9:30 AM EDT Telemedicine [facility] [address] [place] [address] Celi Howard, RADIO BROADCASTER, DNP POTS (postural orthostatic tachycardia syndrome) from Last 3 Months Social History Tobacco Use Types Packs/Day Years Used Date Smoking Tobacco: Never Smokeless Tobacco: Never Tobacco Cessation:Counseling Given: Not Answered Education Answer Date Recorded Are you interested in more education? Not on ravinder e 03/24/2023 Are you concerned about learning? Not on file 03/24/2023 No 03/24/2023 No 03/24/2023 Digital Access Answer Date Recorded No 04/21/2023 No 04/21/2023 Reliable internet access at home? Not on file 04/21/2023 Device with a working camera? Not on file Comments Unknown Sex and Gender Information Value Date Recorded Sex Assigned at Female 12/27/2020 1:13 PM EST Legal Sex Female 8:58 PM EDT Gender Identity Female 12/27/2020 1:13 PM EST Sexual Orientation Straight 12/27/2020 1: 13 PM EST Last Filed Vital Signs Vital Sign Reading Time Taken Comments Blood Pressure 102/78 12/12/2024 2:07 PM EST Pulse 97 12/12/2024 2:07 PM EST Temperature 36.3 C (97.4 F) 12/12/2024 2:07 PM EST Respiratory Rate - - Oxygen Saturation 99% 12/12/2024 2:07 PM EST Inhaled Oxygen Concentration - - Weight 59.9 kg (132 lb) 12/12/2024 2:07 PM EST Height 158.8 cm (5' 2.5 ) 08/15/2024 1:04 PM EDT Body Mass Index 23.76 08/15/2024 1:04 PM EDT Plan of Treatment Upcoming Encounters Date Type Department Care Team ([facility] st Contact Info) Description 12/02/2025 10:00 AM EST Telemedicine [facility] [address] [place] [address] Celi Howard, RADIO BROADCASTER, DNP [address] [facility] [address] [facility] [address] [place] [address] [email or web address] Health Maintenance Due Date Last Done Comments DEPRESSION SCREENING 2005 HEPATITIS C SCREENING 2011 HIV ONE-TIME SCREENING (18-65 YEARS) 2011 PAP SMEAR 2014 Adult Td,Tdap Booster 05/10/2021 05/10/2011, 003 COVID-19 VACCINE ( season) 2024 11/22/2020 INFLUENZA VACCINE (#1) 2025 , 09/12/2019, 12/11/2013 HIB VACCINES Completed 05/26/1994, 04/1993, 1993, Additional history exists MENINGOCOCCAL VACCINES (ACWY) Aged Out 10/10/2015, 12/11/2013, 09/24/2007 No longer eligible based on patient's age to complete this topic SMOKING STATUS SCREENING (Once After 26 Yrs) Completed 12/12/2024 HEPATITIS A VACCINES Aged Out No long er eligible based on patient's age to complete this topic MENINGOCOCCAL VACCINES (B) Aged Out N o longer eligible based on patient's age to complete this topic PNEUMOCOCCAL VACCINES (0-49 years) Aged Out No longer eligible based on patient's age to complete this topic Medical Devices Not on file Insurance S S Member Subscriber Plan / Payer (Ef fective 2020-Present) Name:Deanne Reid Relation to Subscriber:Self Name:Deanne Reid Payer ID:Not on file Type:PPO Address: [place] [id number] Care Teams Weed Cutter Relationship Specialty Start Date End Date Mini Wilson PA PCP - General Physician Marketing Area Manager 12/06/24 Additional Source Comments The information contained in this document represents components of the legal health record. It is not the complete legal health record.[facility]
--- OUTSIDE RECORDS SUMMARY | 2025-07-23 16:46 | XMS_ITS | Encounter Summary ---
Author Organization [facility] Address [address] [place] [address] Care Team Providers Care Tower Observer Name Role Phone Unavailable Primary Care Provider Unavailabl e Encounter Details Date Type Department Care Team (Late st Contact Info) Description 03/22/2022 Dental Interim Note Caring [facility] [address] [place] [address] Gayla Hathaway, DMD [address] [place] [address] Social History Tobacco Use Types Packs/Day Years [...] Description 10/10/2025 2:20 PM EST Office Visit [address] [place] [phone] Tashi Hart, [facility] [address] [place] [address] documented as of this encounter Visit Diagnoses Not on filedocumented in this encounter
--- OUTSIDE RECORDS SUMMARY | 2025-07-23 16:46 | XMS_ITS | Encounter Summary ---
Author Organization [facility] Address [address] [place] [address] Care Team Providers Care Saw Cleaner Name Role Phone Unavailable Primary Care Provider Unavailabl e Encounter Details Date Type Department Care Team (Late st Contact Info) Description 04/14/2022 Dental Interim Note Caring [facility] [address] [place] [address] Gayla Hathaway, DMD [address] [place] [address] Social History Tobacco Use Types Packs/Day Years [...] Description 10/10/2025 2:20 PM EST Office Visit [facility] [address] [place] [phone] Tashi Hart, [facility] [address] [place] [address] documented as of this encounter Visit Diagnoses Not on filedocumented in this encounter
--- OUTSIDE RECORDS SUMMARY | 2025-07-23 16:46 | XMS_ITS | Clinical Summary ---
Author Organization [facility] Address [address] [place] [address] Care Team Providers Care Float Remover Name Role Phone Unavailable Primary Care Provider [...] psteIndications :Caries involving multiple surfaces of tooth [place] twice a day every day for 2 minutes.Expe ctorate but do not rinse,eat or drink for 30 minutes after using this. 112 g 3 04/11/2022 Active metoprolol tartrate (LOPRESSOR) 25 mg tablet Take 12.5 mg by mouth 2 (two) times daily 06/30/2022 Active Active Problems No known active problems Encounters Date Type Department Care Team Description 04/22/2025 3:40 PM EDT Office Visit [facility] [address] [place] [address] Silvio Manuel DDS from Last 3 Months Social History Tobacco [...] Sign Reading Time Taken Comments Blood Pressure 116/81 04/22/2025 3:53 PM EDT Pulse 94 04/22/2025 3:53 PM EDT Temperature - - Respiratory Rate - - Oxygen Saturation - - Inhaled Oxygen Concentration - - Weight - - Height - - Body Mass Index - - Plan of Treatment Upcoming Encounters Date Type Department Care Team (Late st Contact Info) Description 10/10/2025 2:20 PM EST [facility] Visit [facility] [address] [place] [address] TannerTashi martinez, [facility] [address] [place] [address] Health Maintenance Due Date Last Done Comments Anxiety Screening 1993 HPV Screening 1993 Hepatitis C Screening 1993 Pap + HPV 1993 HIV Screening 02/02/2008 Relationship Safety Screening/Counseling 02/02/2008 Cervical Cancer Screening 2014 Pap Smear 2014 [id number] ( season) 2024 12/07/2021, 12/19/2020, 11/22/2020 Alcohol and Drug Screen 11/27/2024 Depression Annual Screen 11/27/2024 Dental Perio Charting 12/20/2024 12/18/2023 Imm-Influenza (#1) 2025 08/28/2023, 1 , 09/13/2021, Additional history exists Dental BW 08/03/2025 08/01/2024, 11/28, 03/07/2023, Additional history exists Dental Examination 03/29/2026 03/27/2025, 0 08/01/2024, 12/18/2023, Additional history exists Dental Prophy 03/29/2026 03/27/2025, 09/0 03/2024, 12/18/2023, Additional history exists Tobacco Screening 04/22/2026 04/22/2025 Dental FMX/Pano 04/13/2027 04/11/2022 Hypertension Screening (#1) 04/21/2028 Imm-DTaP/Tdap/Td (8 - Td or Tdap) 07/12/2032 07/12/2022, 05/10/2011, 07/15/2003, Additional history exists Imm-Hepatitis B Completed 06/06/2017, 12/28, 12/13/2016, Additional history exists Cervical Ablation/Cold-Knife Conization Discontinued Cervical Cryotherapy Discontinued Colposcopy Discontinued Endometrial Biopsy Discontinued Excision/Leep Discontinued HPV Genotyping Discontinued Vaginal Pap Discontinued Vulvoscopy Discontinued Procedures Procedure Name Priority Date/Time Associated Diagnosis Comments 11 DL RESIN-BASED COMPOSITE TWO SURFACES ANTERIOR Routine 04/22/2025 3:40 PM EDT Caries PROPHYLAXIS - ADULT Routine 03/27/2025 3 :00 PM EDT Encounter for dental examination PERIODIC ORAL EVALUATION ESTABLISHED PATIENT Routine 03/27/2025 3:00 PM EDT Encounter for dental examination BITEWINGS - FOUR RADIOGRAPHIC IMAGES Routine 08/01/2024 3:00 PM EDT Caries COMP [...]
== END 2025-07-23 16:00 | disposition home or self-care (01) ==
LOC: HO.HMCFM 15:33
PROVIDERS: PCP Physician Assistant; Visit Provider Physician Assistant
DX: Z00.00 Encounter for general adult medical examination without abnormal findings (principal); I49.8 Other specified cardiac arrhythmias; G43.109 Migraine with aura, not intractable, without status migrainosus; D64.9 Anemia, unspecified; R10.9 Unspecified abdominal pain; G89.29 Other chronic pain; F41.1 Generalized anxiety disorder

== ENCOUNTER 2025-09-01 14:30 | Outpatient (AMB) | payer OTHER, SELFPAY ==
[2025-09-01 14:34] VITALS: BP 84/60; PULSE 112; O2SAT 98; BMI 25.3
--- NOTE | 2025-09-01 14:34 | A.OFFVIS_ITS ---
Vital Signs 09/01/25 14:34 Height 5 ft 1 in Weight 134 lb BMI 25.3 BP 84/60 L Blood Pressure Location Rt brachial Position Sitting Pulse 112 H Pulse Source Pulse Oximeter Pulse Oximetry (%) 98 Oxygen Delivery Method Room Air Intake Visit Reasons: 6 mo follow up Intake Note: Patient presents follow up Migraine Medication Acid Extractor Required: No Accompanied by: Self / Same As Patient Allergies lactose Allergy (Intermediate, Verified 09/01/25 14:34) Stomach Upset Sulfa (Sulfonamide Antibiotics) (SULFA (SULFONAMIDE ANTIBIOTICS)) Allergy (Unknown, Verified 09/01/25 14:34) UNKNOWN epinephrine Allergy (Verified 09/01/25 14:34) Unknown gluten Allergy (Verified 09/01/25 14:34) Diarrhea mushroom Allergy (Verified 09/01/25 14:34) Unknown Medication List - Last Reconciled 09/01/25 by ISAAK Freed albuterol sulfate 90 mcg/actuation (ProAir RespiClick) 2 puffs inhalation Q6H PRN amitriptyline 25 mg PO BEDTIME budesonide 180 mcg/actuation (Pulmicort Flexhaler) 2 inhalations inhalation BID odvortxvza-xdqpypwlihdls-hwae 50-325-40 mg 1 cap PO Q4H PRN 30 days ciprofloxacin HCl (Cipro) 500 mg PO Q12H dicyclomine 10 mg PO QID PRN dihydroxyacetone 5% mL topical famotidine 40 mg PO BID fremanezumab-vfrm (Ajovy Syringe) 225 mg (1.5 mL) subcut Q30D 30 days meclizine 25 mg PO QID metoclopramide HCl (Reglan) 10 mg PO Q6H PRN mirtazapine 7.5 mg (1/2 x 15 mg) PO BEDTIME 30 days ondansetron 8 mg PO Q8H PRN HPI Comments Details: 30-yr-old female presents for f/u visit for migraine in setting of POTS, and 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 Pt states she is starting to feel better, however does still have some residual GI symptoms. She has stopped drinking soda all together, but does take some coffee in the form of [employer] or an energy drink. She has noticed her blood sugars are better. She may be shaky prior to the onset of migraine. She has not vomited since Nov 23 2024. Her migraine attacks have been better. Since June, she has only needed to take the Fioricet 3 times. She may notice increased mild headaches during the last few days of the Ajovy injection cycle. She recently became connected with her father and his side of her family- father had possible stroke x's 2, paternal aunt has migraine, POTs and MS, and this aunt's son has POTs. Her mother's side of the family does not have predominant headache disorders. 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 02/27/2025, HPI: Pt continues to be followed by POTs specialist at [facility]- * Did not tolerate Fludrocortsiine 0.1mg tab- states calls mood/behavior changes, however this may have also been due to concurrent bout of pneumonia and prednisone Tx * She does try to take salty foods and increase her overall salt content- carries salt and salty snacks with her all times- though notes it is impossible for her to reach the 8 g sodium intake per day. * Is doing better with increasing her daily fluid intake * They have recently advised her to trial Mestinon- though she has not tried this yet, as she wanted to wait to talk to loss due to the known GI side effects Mestinon. She has continued to be followed by her remote recruiter, at [facility]-the notes her current provider is leaving the practice- Dr Deras * They advised her to resume her famotidine which she has been trying to do more consistently * They have also advised her to retrial cromolyn-but this time start this once a day and slowly titrate up 4 times a day * She notes decreased her current unless she eats something very spicy i are likely to trigger symptoms * She clarifies her allergies, shrimp/shellfish, wheat, B milk protein, pistachio/almond, strawberries- though some of these are low-grade allergies, and was told she could try to eat cooked versions to reduce them to her diet. She has not seen GI in a while * However notes that the vomiting, and severe diarrhea symptoms have decreased since we started her on amitriptyline- has not had a severe attack in month. * In also notes that GI did not feel routine follow-up was indicated, as he felt her GI symptoms were secondary to her conditions. 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 With the time she was advised she could use the as-needed metoclopramide for headache pain- and eventually the headache break * Since, she has not had a breakthrough severe migraine in the last month * She is compliant with mirtazapine 7 5 mg and amitriptyline 25 mg q.h.s. and Ajovy 220 mg subQ * Again is using Fioricet p.r.n. sparingly. [facility] Medical History Frequent UTI Generalized anxiety disorder Snoring UTI (urinary tract infection) Paresthesia of both lower extremities Chronic abdominal pain COVID-19 Migraine POTS (postural orthostatic tachycardia syndrome) Surgical History History of esophagogastroduodenoscopy (EGD) History of wisdom tooth extraction Family History Father Unknown family medical history Mental disorder Mother HTN (hypertension) Social History (Updated 04/30/25 @ 15:14 by Gretchen Mcelroy CMA) Household Members: Family Housing: House Do you presently have visiting nurse or other home services: No Alcohol intake: never Patient Tobacco Use Status: Never used Tobacco e-Cigarette/Vaping Use: Former Use service: No Current occupational status: employed Current occupation: [employer] Current occupational exposures/hazards: No Cognitive needs: No Hearing needs: No Vision needs: No Physical Exam Vital Signs: Last Vital Signs Pulse 112 H 09/01/25 14:34 BP 84/60 L 09/01/25 14:34 Pulse Ox 98 09/01/25 14:34 Oxygen Delivery Method Room Air 09/01/25 14:34 BMI result Body Mass Index 25.3 Const General: cooperative and no acute distress Orientation/consciousness: patient oriented x3 Resp Effort & Inspection: normal respiratory effort and able to speak in complete sentences Neuro General: patient oriented x3 Cranial nerves: Yes CN's II-XII intact bilaterally Cognition (Neuro): normal cognition Psych Appearance: grossly normal Mental Status: mental status grossly normal Speech and movement: Normal speech and movement present Affect: normal affect Attitude: cooperative Assessment & Plan Assessment & Plan (1) Migraine with aura: Code(s): G43.109 - Migraine with aura, not intractable, without status migrainosus Category: Medical Qualifiers: Intractability: not intractable Status migrainosus presence: without status migrainosus Qualified Code(s): G43.109 - Migraine with aura, not intractable, without status migrainosus (2) POTS (postural orthostatic tachycardia syndrome): Code(s): I49.8 - Other specified cardiac arrhythmias Category: Medical (3) Nausea vomiting and diarrhea: Comment: Improved- ? Mast cell activation disorder Code(s): R11.2 - Nausea with vomiting, unspecified; R19.7 - Diarrhea, unspecified Category: Medical Plan For migraine prevention: Continue Amitriptyline 25mg qhs- this may be helping vomiting s/s. Continue Ajovy 225mg q month. Continue Mirtazapine 7.5 mg q.h.s. for migraine prevention. Previous tx trials- none other For acute migraine tx: Fioricet prn- sparingly. May use metoclopramide 10 mg every 4 hours p.r.n. nausea, vomiting, migraine headache. May adjunct metoclopramide Benadryl 25-50 mg every 6-8 hours as needed. Previous tx trials- Sumatriptan, Naratriptan, Rizatriptan- all caused diffuse burning skin sensation. Ubrelvy- helpful but denied by insurance d/t Ajovy use. Tx contraindications: Triptans- d/t PVCs. Fioricet when taking Corlanor. ? For sleep issues: HST- previously did not record enough data- consider repeating in f/u. ? For brain fog in setting of POTs and possible mast cell activation disorder: Continue famotidine. Continue frequent fluids, salty snacks, increase salt with goal of 8 g per day, and paced activities. Refill methylphenidate as needed. Follow-up with [facility] dysautonomia Clinic as scheduled. Follow-up with remote recruiter as scheduled. ? Paresthesias: 03/01/24- ESR 10 WNL Previous BLE EMG/NCS- normal. Monitor. ? f/u in 6 months or sooner prn. Medications: Changed From ondansetron 4 mg PO Q8H PRN 10 tabs 0RF nausea and vomiting To ondansetron 8 mg PO Q8H PRN Coding Level of Care Code Est Pt Level 4 (10762) Diagnoses Migraine with aura and without status migrainosus, not intractable G43.109 Intractability: not intractable Status migrainosus presence: without status migrainosus POTS (postural orthostatic tachycardia syndrome) I49.8 Nausea vomiting and diarrhea R11.2; R19.7
--- OUTSIDE RECORDS SUMMARY | 2025-09-01 16:56 | XMS_ITS | Encounter Summary ---
Author Organization [facility] Address [address] [place] [address] Care Team Providers Care Sharepoint Consultant Name Role Phone Unavailable Primary Care Provider Unavailabl e Encounter Details Date Type Department Care Team (Late st Contact Info) Description 03/22/2022 Dental Interim Note [facility] [address] [place] [address] Gayla Hathaway, DMD [address] [place] [address] Social History Tobacco Use Types Packs/Day Years [...] 0 03/11/2022 Safety and Environment Answer Date Arei rded Safety 0 03/11/2022 Utilities Answer Date [...] Description 10/10/2025 2:20 PM EST Office Visit [facility] [address] [place] [phone] Tashi Hart, [address] [place] [address] documented as of this encounter Visit Diagnoses Not on filedocumented in this encounter
--- OUTSIDE RECORDS SUMMARY | 2025-09-01 16:56 | XMS_ITS | Encounter Summary ---
Author Organization [facility] Address [address] [place] [address] Care Team Providers Care Systems Support Specialist Name Role Phone Unavailable Primary Care Provider Unavailabl e Encounter Details Date Type Department Care Team (Late st Contact Info) Description 04/14/2022 Dental Interim Note [facility] [address] [place] [address] Gayla Hathaway, DMD [address] [place] [address] Social History Tobacco Use Types Packs/Day Years [...] Description 10/10/2025 2:20 PM EST Office Visit [facility] [address] [place] [phone] Tashi Hart, [facility] [address] [place] [address] documented as of this encounter Visit Diagnoses Not on filedocumented in this encounter
--- OUTSIDE RECORDS SUMMARY | 2025-09-01 16:56 | XMS_ITS | Clinical Summary ---
Author Organization [facility] Address [address] [place] [address] Care Team Providers Care Sports Book Board Attendant Name Role Phone Unavailable Primary Care Provider [...] psteIndications :Caries involving multiple surfaces of tooth [place] twice a day every day for 2 [...] 2:20 PM EST Office Visit [facility] [address] [place] [address] Tashi Hart, [facility] [address] [place] [address] Health Maintenance Due Date Last Done Comments Anxiety Screening 1993 HPV Screening 1993 Hepatitis C Screening 1993 Pap + HPV 1993 HIV Screening 02/02/2008 Relationship Safety Screening/Counseling 02/02/2008 Cervical Cancer Screening 2014 Pap Smear 2014 Alcohol and Drug Screen 11/27/2024 Depression Annual Screen 11/27/2024 Dental Perio Charting 12/20/2024 12/18/2023 [id number] ( season) 2025 12/07/2021, 12/19/2020, 11/22/2020 Imm-Influenza (#1) 2025 08/28/2023, 1 , 09/13/2021, Additional history exists Dental BW 08/03/2025 08/01/2024, 11/28, 03/07/2023, Additional history exists Dental Examination 03/29/2026 03/27/2025, 0 08/01/2024, 12/18/2023, Additional history exists Dental Prophy 03/29/2026 03/27/2025, 09/03/2024, 12/18/2023, Additional history exists Tobacco Screening 04/22/2026 04/22/2025 Dental FMX/Pano 04/13/2027 04/11/2022 Hypertension Screening (#1) 04/21/2028 Imm-DTaP/Tdap/Td (8 - Td or Tdap) 07/12/2032 07/12/2022, 05/10/2011, 07/15/2003, Additional history exists Imm-HPV Completed 04/01/2008, 01/2008, 09/24/2007 Imm-Hepatitis B Completed 06/06/2017, 12/28, 12/13/2016, Additional history exists Cervical Ablation/Cold-Knife Conization Discontinued Cervical Cryotherapy Discontinued Colposcopy Discontinued Endometrial Biopsy Discontinued Excision/Leep Discontinued HPV Genotyping Discontinued Vaginal Pap Discontinued Vulvoscopy Discontinued Procedures Procedure Name Priority Date/Time Associated Diagnosis Comments PROPHYLAXIS - ADULT Routine 03/27/2025 3 :00 [...]
--- OUTSIDE RECORDS SUMMARY | 2025-09-01 16:57 | XMS_ITS | Encounter Summary ---
Author Organization [facility] Address [address] [place] [address] Care Team Providers Care Overseer Kosher Kitchen Name Role Phone Unavailable Primary Care Provider Unavailabl e Encounter Details Date Type Department Care Team (Late st Contact Info) Description 04/28/2022 Dental Interim Note [facility] [address] [place] [address] Gayla Hathaway, DMD [address] [place] [address] Social History Tobacco Use Types Packs/Day Years [...] Description 10/10/2025 2:20 PM EST Office Visit [facility] [address] [place] [phone] Tashi Hart, [facility] [address] [place] [address] documented as of this encounter Visit Diagnoses Not on filedocumented in this encounter
--- OUTSIDE RECORDS SUMMARY | 2025-09-01 16:57 | XMS_ITS | Clinical Summary ---
Author Organization [facility] Address [address] [place] [address] Phone Care Team Providers Care Lead Producer Name Role Phone Mini Wilson Primary Care Provider [phone] Allergies Active Allergy Reactions Criticality Noted Date [...] Team Description 07/01/2025 9:30 AM EDT Telemedicine [facility] Neuromuscular Service [address] [facility], [address] [place] [address] Celi Howard, MINE EXPERT, DNP POTS (postural orthostatic tachycardia syndrome) from [...] Care Team (Late st Contact Info) Description 09/30/2025 2:45 PM EST Office Visit [address] [address] Celi Howard CNP, DNP [address] [address] Cara Groves, PT [address] [place] [address] 10/14/2025 1:15 PM EST Office Visit [facility] [address] [place] [address] Celi Howard CNP, DNP [address] [address] Cara Groves, PT [address] [place] [address] 10/16/2025 2:45 PM EST Office Visit [facility] [address] [place] [address] Celi Howard CNP, DNP [address] [address] Cara Groves, PT [address] [place] [address] 10/21/2025 2:45 PM EST Office Visit [facility] [address] [place] [address] Celi Howard, KATIE, DNP [address] [address] Cara Groves, PT [address] [place] [address] 10/28/2025 2:45 PM EST Office Visit [facility] [address] [place] [address] Celi Howard, KATIE, DNP [address] [address] Cara Groves, PT 8 [place] [address] 10/30/2025 2:45 PM EST Office Visit [facility] [address] [place] [address] Celi Howard, KATIE, DNP [address] [address] Cara Groves, PT [address] [place] [address] 11/04/2025 2:45 PM EST Office Visit [facility] [address] [place] [address] Celi Howard CNP, DNP [address] [facility] [address] [place] [address] ZarijulioCara, PT 8 [place] [address] 11/06/2025 2:45 PM EST Office Visit [facility] [address] [place] [address] Celi Howard CNP, DNP [address] [address] Cara Groves, PT [address] [place] [address] 12/02/2025 10:00 AM EST Telemedicine [facility] Neuromuscular Service [address] [facility], [address]th [place] [address] Celi Howard, KATIE, DNP [address] [address] Health Maintenance Due Date Last Done Comments DEPRESSION SCREENING 2005 HEPATITIS C SCREENING 2011 HIV ONE-TIME SCREENING (18-65 YEARS) 2011 PAP SMEAR 2014 Adult Td,Tdap Booster 05/10/2021 05/10/2011, 003 INFLUENZA VACCINE (#1) 2025 , 09/12/2019, 12/11/2013 COVID-19 VACCINE ( season) 2025 11/22/2020 HIB VACCINES Completed 05/26/1994, 04/1993, 1993, Additional [...] Devices Not on file Insurance S S S S S Member Subscriber Plan / Payer (Ef fective 2020-Present) Name:Deanne Reid Relation to Subscriber:Self Name:Deanne Reid Payer ID:Not on file Type:PPO Address: [place] [id number] Care Teams Lead Producer Relationship Specialty Start Date End Date Mini Wilson PA [address] [place] [phone] PCP - General Physician National Sales Executive 12/06/24 Additional Source Comments The information contained in this document represents components of the legal health record. It is not the complete legal health record.[facility]
== END 2025-09-01 15:35 | disposition home or self-care (01) ==
LOC: HO.HSMS 14:31
PROVIDERS: PCP Physician Assistant; Visit Provider Nurse Practitioner Family
DX: G43.109 Migraine with aura, not intractable, without status migrainosus (principal); I49.8 Other specified cardiac arrhythmias; R11.2 Nausea with vomiting, unspecified; R19.7 Diarrhea, unspecified
CPT/HCPCS: 99214

== ENCOUNTER 2025-11-14 08:17 | Outpatient (AMB) | payer OTHER, SELFPAY ==
[2025-11-14 08:21] VITALS: BP 90/66; PULSE 99; BMI 25.8
--- NOTE | 2025-11-14 08:21 | A.OFFVIS_ITS ---
Vital Signs 11/14/25 08:21 Height 5 ft 1 in Weight 136 lb 10.986 oz BMI 25.8 BP 90/66 Blood Pressure Location Lt brachial Position Sitting Pulse 99 Pulse Source Pulse Oximeter Intake Visit Reasons: 2 week [facility] d/c Intake Note: 2 wk f/up [facility] [place] Transmission And Protection Engineer Required: No Accompanied by: Self / Same As Patient Allergies lactose Allergy (Intermediate, Verified 09/01/25 14:34) Stomach Upset Sulfa (Sulfonamide Antibiotics) (SULFA (SULFONAMIDE ANTIBIOTICS)) Allergy (Unknown, Verified 09/01/25 14:34) UNKNOWN epinephrine Allergy (Verified 09/01/25 14:34) Unknown gluten Allergy (Verified 09/01/25 14:34) Diarrhea mushroom Allergy (Verified 09/01/25 14:34) Unknown Medication List - Last Reconciled 11/14/25 by Comfort Ervin POULTRY VACCINATOR-C albuterol sulfate 90 mcg/actuation (ProAir RespiClick) 2 puffs inhalation Q6H PRN amitriptyline 25 mg PO BEDTIME budesonide 180 mcg/actuation (Pulmicort Flexhaler) 2 inhalations inhalation BID obbspukrgd-lfzxublxqizax-xxee 50-325-40 mg 1 cap PO Q4H PRN 30 days ciprofloxacin HCl (Cipro) 500 mg PO Q12H dicyclomine 10 mg PO QID PRN dihydroxyacetone 5% mL topical famotidine 40 mg PO BID fremanezumab-vfrm (Ajovy Syringe) 225 mg (1.5 mL) subcut Q30D 30 days meclizine 25 mg PO QID metoclopramide HCl (Reglan) 10 mg PO Q6H PRN mirtazapine 7.5 mg (1/2 x 15 mg) PO BEDTIME 30 days ondansetron 8 mg PO Q8H PRN HPI HPI 2 week [facility] [place] d/c: Details: The patient is a 30 year old female presenting for follow-up regarding heart palpitations. She recently visited the emergency room for frequent, uncomfortable palpitations described as a pressure and thumping sensation in her chest, which had occurred over five days. An EKG at that time showed normal sinus rhythm with premature ventricular contractions (PVCs). Labs and a chest x- ray were unremarkable. Her past medical history is significant for postural orthostatic tachycardia syndrome (POTS), migraines, and anxiety. Previous medication trials for POTS, including midodrine, fludrocortisone (Florinef), and beta-blockers, were not well-tolerated. She is followed by a specialist at [facility] and is currently undergoing physical therapy for POTS management, which she finds somewhat helpful. Her last echocardiogram in April 2022 was normal. About two months ago, while in [facility], she experienced an acute gastrointestinal illness that was preceded by a day of persistent asymptomatic tachycardia with a heart rate in the 160s. She has not tachycardia like that since that time. she was initially concerned as her father has a history of atrial fibrillation. The patient does not use caffeine or other stimulants. 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 She is going to school for nurse practitioner. [facility] Medical History Frequent UTI Generalized anxiety disorder Snoring UTI (urinary tract infection) Paresthesia of both lower extremities Chronic abdominal pain COVID-19 Migraine POTS (postural orthostatic tachycardia syndrome) Surgical History History of esophagogastroduodenoscopy (EGD) History of wisdom tooth extraction Family History Father Unknown family medical history Mental disorder Mother HTN (hypertension) Social History Household Members: Family Housing: House Do you presently have visiting nurse or other home services: No Alcohol intake: never Patient Tobacco Use Status: Never used Tobacco e-Cigarette/Vaping Use: Former Use service: No Current occupational status: employed Current occupation: [employer] Current occupational exposures/hazards: No Cognitive needs: No Hearing needs: No Vision needs: No Review of Systems Const All systems reviewed & are unremarkable except as noted in HPI and below Denies chills, Denies fatigue, Denies fever(s), Denies frequent falls, Denies weakness, Denies weight gain and Denies weight loss ENT Denies dizziness Card Details: hear palpitations Denies chest pain, Denies leg edema, Denies lightheadedness, Denies palpitations, Denies dyspnea and Denies dyspnea on exertion Resp Denies cough, Denies dyspnea and Denies dyspnea on exertion GI Denies hematochezia Musc Denies abnormal gait, Denies muscle weakness, Denies numbness, Denies radiating pain into limb and Denies tingling Neuro Denies abnormal gait, Denies dizziness, Denies frequent falls, Denies numbness, Denies tingling and Denies weakness Endo Denies fatigue and Denies palpitations Physical Exam Vital Signs: Last Vital Signs Pulse 99 11/14/25 08:21 BP 90/66 11/14/25 08:21 BMI result Body Mass Index 25.8 Const General: cooperative, healthy appearing, comfortable and no acute distress Orientation/consciousness: patient oriented x3 Neck Neck: Yes normal visual inspection Resp Auscultation: clear to auscultation bilaterally, no crackles, no rales and no rhonchi Cardio Rate: regular rate Rhythm: regular rhythm Heart sounds: S1 normal heart sound present, S2 normal heart sound present, no gallops, no murmurs and no rubs Neuro General: patient oriented x3 Extrem General: Yes normal to inspection, No no pedal edema and No calf tenderness Psych Appearance: grossly normal Mental Status: mental status grossly normal Speech and movement: Normal speech and movement present Assessment & Plan Assessment & Plan (1) Palpitations: Code(s): R00.2 - Palpitations Category: Medical Plan: Recent ER evaluation at [facility] for heart palpitations. Findings did show PVCs. No other acute abnormalities identified. Overall symptom has lessened. Offered Holter monitor and echocardiogram for further evaluation and she declines. Will continue with conservative management at this time. (2) POTS (postural orthostatic tachycardia syndrome): Code(s): I49.8 - Other specified cardiac arrhythmias Category: Medical Plan: History of POTS. Currently following with provider at [facility]. She is undergoing physical therapy which she is finding helpful. (3) Hospital discharge follow-up: Code(s): Z51.89 - Encounter for other specified aftercare Category: Medical Plan: [facility] notes reviewed Plan I discussed with the patient that her palpitations are likely due to premature ventricular contractions (PVCs), which are considered benign in a structurally normal heart like hers. I reassured her that while they can be bothersome and scary, they are not harmful in a strong heart. I offered further testing with a Holter monitor to quantify the PVC burden and an updated echocardiogram, as her last one was over two years ago. The patient declined further testing at this time, feeling comfortable with her current symptom control. We discussed continuing conservative management, including staying well hydrated and avoiding stimulants. I advised her that if she experiences sustained rapid heartbeats, which would be different from her usual PVCs, she should seek further evaluation. We agreed to a follow-up appointment in six months, or sooner if her symptoms worsen. Patient Instructions: - Your heart palpitations are likely from extra heartbeats called PVCs, which are generally not harmful in a healthy heart. - Continue to drink plenty of fluids and avoid stimulants like caffeine and energy drinks, as these can make your heart more jumpy. - Continue with your physical therapy for POTS and your follow-up with your specialist. - If you experience a continuous fast heartbeat that feels different from your usual symptoms, please contact our office for further evaluation. - We have scheduled a follow-up visit in six months. Please call sooner if your symptoms get worse or if you have any other concerns. Patient was informed and verbally consented to the use of an ambient scribe for clinic note documentation during this visit. Visit time spent on chart review, interview, assessment, orders, documentation. Coding Level of Care Code Est Pt Level 3 (44141) Add On Problem Visit Only Diagnoses Palpitations R00.2 POTS (postural orthostatic tachycardia syndrome) I49.8 Hospital discharge follow-up Z51.89 Time Spent (min) 24
--- OUTSIDE RECORDS SUMMARY | 2025-11-14 08:22 | XMS_ITS | Clinical Summary ---
Author Organization [facility] Address [address] [place] [phone] Phone Care Team Providers Care Spinning Lathe Operator Name Role Phone Mini Wilson Primary Care Provider [phone] Allergies Active Allergy Reactions Criticality Noted Date [...] Active Problems Problem Noted Date Diagnosed Date COVID-19 virus infection 10/14/2025 Inflammatory polyps of colon 10/14/2025 Intermittent palpitations 10/14/2025 Migraine 10/14/2025 Vitamin A deficiency 10/14/2025 Vitamin D deficiency 10/14/2025 Vitamin B12 deficiency 10/14/2025 Worsening headaches 10/14/2025 Chronic abdominal pain 06/18/2024 Cyclic vomiting syndrome 06/18/2024 POTS (postural orthostatic tachycardia syndrome) 10/12/2020 Encounters Date Type Department Care Team Description 11/06/2025 2:45 PM EST Office Visit [facility] [address] [place] [address] [place] [address] Celi Howard CNP, Cara Gonzalez, PT POTS (postural orthostatic tachycardia syndrome) (Primary Dx) 11/04/2025 2:45 PM EST Office Visit [facility] [address] [place] [address] [place] [address] Celi Howard CNP, Cara Gonzalez, PT POTS (postural orthostatic tachycardia syndrome) (Primary Dx) 10/30/2025 2:45 PM EST Office Visit [facility] [address] [place] [address] [place] [address] Celi Howard CNP, Cara Gonzalez, PT POTS (postural orthostatic tachycardia syndrome) (Primary Dx) 10/21/2025 2:45 PM EST Office Visit [facility] [address] [place] [address] [place] [address] Celi Howard CNP, Cara Gonzalez, PT POTS (postural orthostatic tachycardia syndrome) (Primary Dx) 10/16/2025 2:45 PM EST Office Visit [facility] [address] [place] [address] [place] [address] Celi Howard CNP, Cara Gonzalez, PT POTS (postural orthostatic tachycardia syndrome) (Primary Dx) 10/14/2025 1:15 PM EST Office Visit [facility] [address] [place] [address] eCli Howard CNP, Cara Gonzalez, PT POTS (postural orthostatic tachycardia syndrome) (Primary Dx) from Last 3 Months Social History Tobacco [...] Care Team (Late st Contact Info) Description 12/02/2025 10:00 AM EST Telemedicine [facility] [address] [place] [address] Celi Howard, SYNTHETIC CLOTH BINDING CUTTER, DNP [address] [facility] [address] [place] [address] [email or web address] Health Maintenance Due Date Last Done Comments [...] this topic Medical Devices Not on file Procedures Procedure Name Priority Date/Time Associated Diagnosis Comments AMB REFERRAL TO [facility] Routine 10/14/2025 4:58 PM EST POTS (postural orthostatic tachycardia syndrome) from Last 3 Months Results * Ambulatory referral to [facility] Physical Therapy (10/14/2025 4:58 PM EST) Other Celi Howard SYNTHETIC CLOTH BINDING CUTTER, DNP [facility]B [facility] REFER RALS Final Result from Last [address] [place], [place] [id number] [facility] Member Subscriber Plan / Payer (Ef fective 2020-Present) Name:Deanne Reid Relation to Subscriber:Self Name:Deanne Reid Payer ID:Not on file Type:PPO Address: [address] Member Subscriber Plan / Payer (Ef fective 2020-Present) Name:Deanne Reid Relation to Subscriber:Self Name:Deanne Reid Payer ID:Not on file Type:PPO Address: [place] [id number] [facility] S Member Subscriber Plan / Payer (Ef fective 2020-) Name:Deanne Reid Relation to Subscriber:Self Name:FranklinDeanne Payer ID:Not on file Type:PPO Address: [address] [employer] Member Subscriber Plan / Payer (Ef fective 2020-Present) Name:Deanne Reid Relation to Subscriber:Self Name:Deanne Reid Payer ID:Not on file Type:PPO Address: [address] [employer] Member Subscriber Plan / Payer (Ef fective 2020-Present) Name:Deanne Reid Relation to Subscriber:Self Name:Deanne Reid Payer ID:Not on file Type:PPO Address: [address] [employer] Member Subscriber Plan / Payer (Ef fective 2020-Present) Name:Deanne Reid Relation to Subscriber:Self Name:Deanne Reid Payer ID:Not on file Type:PPO Address: [address] [employer] Care Teams Spinning Lathe Operator Relationship Specialty Start Date End Date Mini Wilson PA [address] [place] [id number] PCP - General Physician Founder And Ceo 12/06/24 Additional Source Comments The information contained in this document represents components of the legal health record. It is not the complete legal health record.[facility]
--- OUTSIDE RECORDS SUMMARY | 2025-11-14 08:22 | XMS_ITS | Data Portability ---
Author Organization [facility], [address] Address [address] [place] [address] Assessment No assessment recorded. Plan of Treatment [...] Out Template NON DOT completed Adryan PERRY Link To [employer] 08/29/2024 18:12:51 Imaging Results None recorded. Procedure [...] Diagnosis SNOMED-CT Code Diagnosis ICD10 Code Diagnosis IMO Codes Diagnosis Note [id number] _[facility] _[address] [phone] 07/11/2020 12:45:21 07/11/2020 14:03:24 [id number] [facility] [address] [place] [address] 02/12/2020 17:49:36 02/12/2020 18:26:46 [id number] [place] [address] [address] 08/29/2024 17:31:45 08/29/2024 18:14:28 History and physical examination, occupation [id number] Z02.1 Health Concerns Section Related Observation LastModified by Organization Detai ls LastModified Time None Recorded Concern Status LastModified by Organization Details LastModified Time None Recorded Advance Directives Directive None Recorded Payers Insurance Date Sequence Insurance Name Policy Number Policy Leone Covered Member ID Leone Member ID Guarantor Name 08/29/2024 OC-ESCREEN Oc-Escree n [[id number]] [employer] Deanne Reid 08/29/2024 1 [facility] - HEALTH NET PLAN (MEDICAID HMO) [id number] Deanne Reid [id number] Deanne Reid OBGyn Episode No OBEpisode recorded.
== END 2025-11-14 08:45 | disposition home or self-care (01) ==
LOC: HO.HCS 08:18
PROVIDERS: PCP Physician Assistant; Visit Provider Nurse Practitioner Family
DX: R00.2 Palpitations (principal); I49.8 Other specified cardiac arrhythmias; Z51.89 Encounter for other specified aftercare
CPT/HCPCS: 99213; G2211